=== PATIENT | female | born 1950 | race Caucasian/White ===

== ENCOUNTER → 2019-08-08 15:53 | Outpatient (CLI) | payer MEDICARE, OTHER, SELFPAY ==
--- NOTE | 2019-08-08 | DI.CT.S_ITS ---
PROCEDURE: CT UE RT WO CON INDICATIONS: Colles' fracture of right radius TECHNIQUE: Noncontrast 1 mm axial sections acquired through the carpal bones, with coronal and sagittal reformats. COMPARISON: [facility], CR, XR ELBOW 3+ VIEWS RIGHT, 07/02/2019, 15:19. [facility] [place], CR, XR WRIST 3+ VIEWS RIGHT, 08/01/2019, 16:15. FINDINGS: Image quality: Mildly degraded by overlying cast material.. Bones: There is a complex comminuted stellate fracture involving the distal radius, with impaction of the fracture fragments at the articular surface into the fracture planes, resulting in widening of the fracture margins up to 4 mm. There is mild palmar angulation of the articular surface in relationship to expected anatomic alignment. Superimposed upon the fractures and resultant malalignment is degenerative osteoarthritic change most prominent laterally at the wrist at the base of the first metacarpal, and at the articulation between the trapezium and distal scaphoid. The scaphoid itself shows no definite fracture. Along the scaphoid margin and also the lunate margin several small cortical lucencies are present but without fracture margins tracking through the marrow space establishing acute trauma as the underlying cause. Rather, vascular grooves would be the presumed etiology. Soft tissues: Mild soft tissue swelling, no hematoma. IMPRESSION: Complex comminuted stellate impacted intra-articular distal radius fracture, with mild abnormal angulation at the distal articular surface due to the trauma present. Degenerative osteoarthritis overall is moderately severe also, superimposed, and a definite carpal fracture is not found within this is taken into account. Dictated by: Rick Otreo M.D. on 08/08/2019 at 17:26 Approved by: Rick Otero M.D. on 08/08/2019 at 17:33
== END ==
PROVIDERS: Visit Provider Physician Assistant Surgical
DX: S52.531D Colles' fracture of right radius, subsequent encounter for closed fracture with routine healing (principal); M19.031 Primary osteoarthritis, right wrist; M79.89 Other specified soft tissue disorders
CPT/HCPCS: 73200

== ENCOUNTER → 2020-07-08 15:31 | Outpatient (CLI) | payer MEDICARE, OTHER, SELFPAY ==
--- NOTE | 2020-07-08 | DI.MRI.S_ITS ---
PROCEDURE: MR KNEE RT WO CON INDICATIONS: PAIN IN RIGHT KNEE TECHNIQUE: Noncontrast sagittal PD fast spin echo and T2 fast spin echo with fat saturation, sagittal 3-D FLASH with fat saturation; coronal T1 spin echo and PD fast spin echo with fat saturation, and axial PD fast spin echo with fat saturation through the knee. COMPARISON: [facility] [place], CR, XR KNEE 4+ VIEWS RIGHT, 06/30/2020, 16:30. FINDINGS: Image quality: Excellent. Menisci: The medial meniscus is intact. There is a horizontal oblique tear of the lateral meniscal body extending to the tibial articular surface near the free edge margin. There is mild extrusion of the lateral meniscus. The anterior horn and anterior portion of the meniscal body are small, compatible with degenerative tearing and maceration. Cruciate ligaments: There is chronic complete tearing of the anterior cruciate ligament. The posterior cruciate ligament is intact. Medial structures: The medial collateral ligament appears intact. The semimembranosus tendon insertions and meniscocapsular junction appear intact. Visualized portions of the pes anserinus tendons appear normal. No abnormal bursal fluid. Lateral structures: The lateral collateral ligament, long and short heads of the biceps femoris tendon appear intact. The popliteus tendon appears intact. No signs of posterolateral corner injury. Iliotibial band appears normal. Anterior structures: The quadriceps and patellar tendons appear intact. A mildly shallow trochlear groove is seen with mild lateral patellar subluxation. The tibial tubercle-trochlear groove distance is within normal limits. No edema in the infrapatellar fat pad. Bones and cartilage: No acute trabecular bone injury. The articular cartilage in the medial femorotibial compartment demonstrates mild surface irregularity. Small marginal osteophytes are present. In the lateral compartment, there is full-thickness cartilage loss with subchondral edema and marginal osteophyte formation as well as mild remodeling of the tibial articular surface. Focal full-thickness cartilage loss is seen in the median ridge/lateral facet of the patella with mild subchondral edema. Marginal osteophytes are present. Joint space: Moderate joint effusion is present. There is mild synovial hypertrophy. A few small filling defects are seen posterior to the knee joint measuring up to 5 mm in greatest size that likely represents small loose bodies. A moderate medial popliteal cyst is seen measuring 8.2 cm in superior inferior extent. Varicose veins are incidentally noted in the medial subcutaneous tissues. Mild edema is seen in the lateral portion of the proximal soleus muscle that may represent a low-grade strain. IMPRESSION: 1. Tricompartmental degenerative changes are worst in the lateral femorotibial compartment where there is full-thickness cartilage loss and subchondral edema. Areas of full thickness cartilage loss are also noted in the anterior compartment and there is mild partial-thickness cartilage irregularity in the medial compartment. Tricompartmental marginal osteophytes are present. 2. Degenerative tearing and maceration of lateral meniscus with mild extrusion beyond the femorotibial joint line. 3. Chronic complete tearing of the anterior cruciate ligament. 4. Moderate joint effusion. Moderate medial popliteal cyst. Small intra-articular loose bodies are seen measuring up to 5 mm in maximum dimension. 5. Mild edema in the proximal portion of the lateral soleus muscle may represent a low-grade muscle strain. Dictated by: Anshu Fang M.D. on 07/08/2020 at 16:48 Approved by: Ansuh Fang M.D. on 07/08/2020 at 16:59
== END ==
PROVIDERS: Referring Provider Orthopaedic Surgery; Visit Provider Orthopaedic Surgery
DX: M25.561 Pain in right knee (principal); S83.511A Sprain of anterior cruciate ligament of right knee, initial encounter; S83.281A Other tear of lateral meniscus, current injury, right knee, initial encounter; M25.461 Effusion, right knee; M71.21 Synovial cyst of popliteal space [Baker], right knee
CPT/HCPCS: 73721

== ENCOUNTER → 2020-07-14 14:31 | Outpatient (CLI) | payer MEDICARE, OTHER, SELFPAY ==
[2020-07-14 15:13] LABS: Bacteria Urine None Seen; RBC Urine None Seen (0-5/HPF); WBC Urine None Seen (0-5/HPF)
[2020-07-14 16:02] LABS: BUN Creatinine Ratio 23.3 (6-22); Blood Urea Nitrogen 14 mg/dL (7-17); Calcium 9.2 mg/dL (8.4-10.2); Carbon Dioxide 29 mmol/L (22-32); Chloride 103 mmol/L (98-107); Estimated Glomerular Filt Rate > 60.0 mL/min (>60); Glucose 93 mg/dL (80-110); HEMOLYSIS < 15 (0-50); Potassium 3.9 mmol/L (3.4-5.1); Sodium 139 mmol/L (137-145)
[2020-07-14 16:06] LABS: Appearance Urine UA CLEAR; Bilirubin Urine UA NEGATIVE (NEGATIVE); Color Urine UA YELLOW; Glucose Urine UA NEGATIVE (Negative); Ketones Urine UA NEGATIVE (NEGATIVE); Leukocyte Esterase Urine UA NEGATIVE (NEGATIVE); Nitrite Urine UA NEGATIVE (Negative); Occult Blood Urine UA NEGATIVE (Negative); Protein Urine UA NEGATIVE (Negative); Specific Gravity Urine UA 1.015 (1.000-1.035); Urobilinogen Urine UA 0.2 E.U./dL (0.2)
[2020-07-14 16:07] LABS: pH Urine UA 6.5 (4.5-8.0)
[2020-07-14 16:11] LABS: Add Manual Diff / Slide Review NO; Basophils Absolute Auto 100 /uL (0-100); Basophils Percent Auto 0.7 % (0-2); Culture Indicated Urine Cult Not Indicated; Eosinophils Absolute Auto 200 /uL (0-450); Eosinophils Percent Auto 2.9 % (2-4); Hematocrit 38.2 % (36-46); Hemoglobin 12.8 g/dL (12.0-16.0); Lymphocytes Absolute Auto 2400 /uL (1100-4500); Lymphocytes Percent Auto 33.7 % (25-40); Mean Corpuscular HGB Conc 33.6 % (30-36); Mean Corpuscular Hemoglobin 31.4 PG (26-34); Mean Corpuscular Volume 93.4 fL (80-100); Monocytes Absolute Auto 400 /uL (0-900); Monocytes Percent Auto 5.6 % (3-14); Neutrophils Absolute Auto 4100 /uL (1500-7000); Neutrophils Percent Auto 57.1 % (50-75); Platelet Count 247 X10^3/uL (150-400); Red Blood Cell Count 4.08 X10^6/uL (4.0-5.2); Red Cell Distribution Width 12.5 % (11.6-14.8); Urine Comments Microscopic Normal; White Blood Cell Count 7.2 X10^3/uL (4.5-11.0)
== END ==
PROVIDERS: Referring Provider Orthopaedic Surgery; Visit Provider Orthopaedic Surgery
DX: Z01.818 Encounter for other preprocedural examination (principal); Z01.812 Encounter for preprocedural laboratory examination; R73.9 Hyperglycemia, unspecified; N39.0 Urinary tract infection, site not specified
CPT/HCPCS: 36415; 80048; 81001; 83036; 85025; 93005; 93010

== ENCOUNTER → 2020-08-07 13:27 | Outpatient (CLI) | payer OTHER, SELFPAY ==
[2020-08-09 07:54] LABS: COVID19 Sendout Not Detected (Not Detect)
== END ==
PROVIDERS: Referring Provider Orthopaedic Surgery; Visit Provider Physician Assistant
DX: Z01.812 Encounter for preprocedural laboratory examination (principal)
CPT/HCPCS: 87635

== ENCOUNTER 2020-08-10 08:45 | Inpatient (IN) | payer OTHER, SELFPAY ==
[2020-07-22 08:43] VITALS: BMI 27.6
[2020-08-10] VITALS (12 sets, daily range): BP systolic 101–147; BP diastolic 57–81; PULSE 56–71; RESP 12–20; TEMP 36.4–36.9; O2SAT 95–99; BMI 29.1
--- NOTE | 2020-08-10 06:00 | DI.RAD.S_ITS ---
PROCEDURE: XR KNEE RT 1TO2V INDICATIONS: post op films TECHNIQUE: 2 view(s) of the knee acquired. COMPARISON: [facility] [place], CR, XR KNEE 4+ VIEWS RIGHT, 06/30/2020, 16:30. FINDINGS: Bones: Patient is status post knee joint arthroplasty. Hardware components are in expected positions. Visualized bony structures are intact. Soft tissues: Overlying postoperative changes are noted. Surgical drain is in place. IMPRESSION: Satisfactory appearance of the right knee total arthroplasty. Dictated by: Kaiden Arzola M.D. on 08/10/2020 at 14:10 Approved by: Kaiden Arzola M.D. on 08/10/2020 at 14:10
[2020-08-10] MEDS: ACETAMINOPHEN 325 MG TABLET 975 MG PO (09:32)
[2020-08-10] MEDS: PREGABALIN 75 MG CAPSULE PO (09:32)
[2020-08-10] MEDS: CELECOXIB 200 MG CAPSULE PO (09:33)
[2020-08-10] MEDS: LACTATED RINGERS 1,000 ML 42 ML IV ×3 (09:35→12:20)
[2020-08-10] MEDS: VANCOMYCIN 1,000 MG/200 ML PIGGYBACK 200 MG IV (10:36)
--- NOTE | 2020-08-10 10:58 | PM.PREOP ---
Pre-operative Note COVID-19 COVID-19 status: Negative Interval Note History & Physical reviewed/Exam performed by Physician: Yes Changes to H&P: No
[2020-08-10] MEDS: TRANEXAMIC ACID 1,000 MG VIAL 1000 MG INJ (11:25)
--- NOTE | 2020-08-10 11:29 | P.OP_ITS ---
Operative Date/Time/Diagnoses Date of procedure: 08/10/20 Time of procedure: 11:29 Pre-op diagnosis: Severe right knee osteoarthritis Post-op diagnosis: same Procedure & Clinicians Procedure: Right total knee arthroplasty Same procedure as scheduled: Yes Indications: The patient has had progressively worsening right knee pain with radiographic changes consistent with arthritis. Non-operative management has failed and the patient has requested total knee replacement. The risks, benefits and alternatives to surgery were discussed with the patient prior to proceeding. Risks discussed included, but were not limited to, failure to relieve pain, stiffness, infection, nerve damage, deep venous thrombosis, pulmonary embolism, stroke, coma, heart attack, permanent paralysis and , as well as the potential need for eventual revision of the prosthetic. Surgeon: Dona Bocanegra Telecommunications Repairer: Meena Simms Anesthesia Type: General and Spinal Operative Notes Findings: Severe right knee osteoarthritis, good stability Closure Type: primary Specimen(s): none sent Prosthetic devices, grafts, tissues, transplants, or devices: Bocanegra and Nephew Journey BCS 2 size 4 femur, size 3 tibia, 32 mm patella, +9 poly Applied: drain(s) Estimated Blood Loss (mL): 250 Blood products transfused: none Tourniquet time (min): 58 Procedure in detail: The patient was seen in the pre-operative area, where the patient identified the right knee as the operative site and this was marked with my initials. The patient received pre-operative antibiotics, and was taken to the operating room and placed on the operative table in the supine position. After satisfactory anesthesia, a time broker out was performed. The right leg was encircled with a tourniquet about the proximal thigh, and the leg was prepared from the toes to the tourniquet with ChloroPrep in the usual fashion and draped through sterile drapes. The leg was elevated and exsanguinated with Eschmark bandage and the tourniquet inflated to [250] mmHg pressure. The knee was approached through an approximately 18 cm incision centered over the patella and carried into the knee through a medial parapatellar arthrotomy. A portion of the medial and lateral meniscus was resected. Soft tissue was carefully mobilized around the patella the patella was measured with a caliper. Bone was resected from the patella and the patellar height was reconstituted with up an appropriate sized patellar component. A cover was then placed on the patella. A small amount of additional medial and lateral meniscus was resected. The visionare guide fit well to the distal femur. It looked like an appropriate distal femoral cut and the cut was made without difficulty. The rotation was assessed and the appropriate size femoral guide was placed on the distal femur and finishing cuts were made. There is no evidence of notching. The anterior, posterior and chamfer cuts were then made. The posterior osteophytes and soft tissues were then removed. The posterior capsule was injected with part of a mixture of 60 ml 0.25% Marcaine mixed with 20 ml Exparel for post operative pain control. The remainder of this mixture was injected into the capsule and subcutaneous tissues during cement curing. The tibia was prepared and the visionaire guide fit well to the distal tibia. The rotation was assessed. The patient was placed in extension residual medial and lateral meniscus as well as any residual bone was carefully resected. [No] additional tibia was resected. Hemostasis was achieved especially posteriorly. Additional local was injected into the posterior capsule. The extension gap was assessed and additional releases for gap balancing were performed as necessary. It was checked with the gap general production manager. The femoral component was trial was placed and the notch was finished. Trial tibial and femoral components were then placed and the knee placed through a range of motion. Range of motion was [0-130], with good stability throughout the range. The trials were then removed, and the tibia was finished. The bone was prepared with pulsatile lavage, and dried with a sponge. Cement was applied and the final prosthetics placed. Excess cement was removed during and after cement curing. A brief Betadine soak was performed. After confirming there was no extruded cement posteriorly, the final tibial insert was placed. The knee was copiously irrigated and the tourniquet deflated. Hemostasis was obtained with the Bovie. A drain was placed and brought out superolaterally. The capsule was closed with interrupted # Vicryl suture. The subcutaneous layer was closed with barbed sutures, and the skin with a running 3-0 V-Lock suture and Surgical glue. An Aquacel Ag dressing was applied and the patient was taken to recovery having tolerated the procedure well. Complications: none Post-operative Condition: stable Disposition: Acute Care Plan for aftercare: The patient will be maintained on a standard total knee replacement protocol with weight bearing as tolerated. The patient will receive aspirin and sequential compression devices for DVT prophylaxis. The patient will be discharged home when safe for the home environment.
[2020-08-10] MEDS: CEFAZOLIN 2 GM/100 ML FROZ.PIGGY IV ×2 (11:30→19:45)
[2020-08-10] MEDS: BUPIVACAINE 0.25% W/ EPI 30 ML VIAL 60 ML INJ (12:30)
[2020-08-10] MEDS: BUPIVACAINE LIPOSOME 266 MG/20 ML VIAL INJ (12:31)
[2020-08-10] MEDS: ACETAMINOPHEN 325 MG TABLET 650 MG PO ×2 (15:10→22:20)
[2020-08-10] MEDS: LACTATED RINGERS 1,000 ML 100 ML IV ×2 (15:11→22:25)
[2020-08-10] MEDS: GABAPENTIN 300 MG CAPSULE 900 MG PO ×2 (15:11→22:19)
--- NOTE | 2020-08-10 16:44 | PT.IIE ---
Current Diagnoses Unilateral primary osteoarthritis, right knee (08/10/20) Surgery Performed Operation Date: 08/10/20 10:45 Actual Procedures p Total Knee Arthroplasty(Right) - Dona Bocanegra MD Surgical History (Last Updated 07/27/20 @ 13:29 by Gayatri Green, RN) History of bilateral breast implants (Acute) History of bunionectomy of both great toes (Acute) History of right oophorectomy (Acute) Hx of bilateral cataract extraction (Acute) Hx of left knee surgery (Acute) Hx of tonsillectomy (Acute) Medical History (Last Updated 07/27/20 @ 13:35 by Gayatri Green RN) Allergic rhinitis (Acute) Anxiety (Acute) Asthma (Acute) Back pain (Acute) 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) Colon polyps (Acute) Depression (Acute) Easy bruisability (Acute) Eczema (Acute) GERD (gastroesophageal reflux disease) (Acute) Hammer toe of right foot (Acute) HLD (hyperlipidemia) (Acute) IBS (irritable bowel syndrome) (Acute) Melanoma (Acute) Migraine headache (Acute) Osteoarthritis (Acute) Ovarian cancer (Acute) Overactive bladder (Acute) PTSD (post-traumatic stress disorder) (Acute) Rabies exposure (Acute 06/2020) Right wrist fracture (Acute 05/2020) Sensitive skin (Acute) Suicidal ideation (Acute) Physical Therapy Inpatient Evaluation/Re-Eval M1 PT/OT-IP Prior Functional Status Start: 08/10/20 14:32 Freq: NEEDED Status: Active Protocol: Document 08/10/20 16:21 AW (Rec: 08/10/20 16:44 AW [email or web address]) Medical Review Prior Functional Status Medical History Reviewed Yes Communication WNL. Pt is an effective verbal communicator. Mobility and Gait Pt uses a SPC for all community mobility and occasionally for household mobility. She has history of low back pain. Pt had a service dog to assist with mobility who recently. Activities of Daily Living and IADL's Pt deals with severe incontinence. She had recent injections to her bladder to deal with spasm. She is otherwise independent with I/ ADL's. Prior Functional Level (Other details) Pt reports falls at a rate of one every 1-2 months. Social History Household Members none Living Arrangements House Number of Floors (Floors) One Floor Number of Stairs To Enter/Railing? 3 KARINA at back entrance. No railing but stairs are wide and can accommodate cane or another person for MEDIA LIBRARIAN. Home Environment Standard Height Toilet,Walk in Shower Home Equipment Four Wheel Walker,Straight Cane,Shower Seat with Backrest ,Grab Bars In Shower Employment Status Retired Additional Social History Comment Pt lives alone but has friends who plan to stay with her for the first two weeks to provide any necessary assist. Pt plans to sleep on her sofa when she returns home. M2 PT-IP Current Condition Start: 08/10/20 14:32 Freq: NEEDED Status: Active Protocol: Document 08/10/20 16:21 AW (Rec: 08/10/20 16:44 AW [email or web address]) Physical Therapy Current Condition Current Condition Evaluation Date 08/10/20 Treatment Diagnosis R TKA; difficulty in walking Onset Date 08/10/20 Weight Bearing Status Weight Bearing Status Weight Bear as Tolerated M3 PT-IP Subjective Start: 08/10/20 14:32 Freq: NEEDED Status: Active Protocol: Document 08/10/20 16:21 AW (Rec: 08/10/20 16:44 AW [email or web address]) Subjective Physical Therapy Visit Type Type Initial Evaluation Visit Start Time 15:40 Visit Stop Time 16:14 Total Visit Minutes 34 Notes SPT Jermaine attended session and provided assist with mobility Number of CAR WASH ATTENDANT Visits 0 Physical Therapy Visit Comments Patient Comments Pt is willing to participate with PT Therapy Pain Assessment Pain When Pain Assessed During Mobility Pain Present Pain Present Pain Reported Location right knee Intensity 5 Scale Used Numeric (0 - 10) Pain Management Techniques Apply Cold,Timing of Activity with Medications M4 PT-IP Mobility and Gait Start: 08/10/20 14:32 Freq: NEEDED Status: Active Protocol: Document 08/10/20 16:21 AW (Rec: 08/10/20 16:44 AW [email or web address]) PT-Bed Mobility Assessment Sit to Supine Sit to Supine Standby Assistance Scooting Scooting to Edge of Bed Standby Assistance Scooting Up and Down in Bed Standby Assistance PT-Transfer Assessment Sit to and From Stand Sit to and from Stand Minimal Assistance,1 Person Assistance,Use of Upper Extremities Equipment Transfer Assistive Device Gait Belt,Front Wheeled Walker Orthotic/Prosthetic Devices or Brace: No Transfers Transfer Destination Bed Transfer Technique pt ambulated with FWW Transfer Ability Level of Assist Contact Guard Assistance,1 Person Assistance,Use of Upper Extremities Comments Mobility Comments Pt was sitting on the BSC when PT arrived. She requested to keep male providers out of the room until finished with toileting and her wishes were respected. When finished on the BSC, she completed sit to stand min A x 1 and was able to stand with UE support on the FWW CGA. She ambulated to the toilet and then out to the sink to wash her hands, moving deliberately and safely . She was able to stand without UE support to complete hygiene. Pt then ambulated to the bed with FWW CGA and completed sit to supine transfer SBA. She was positioned on the bed with call light and all needs within reach. Gait Assessment Gait Gait Assistance Required: Contact Guard Assist Distance (Feet) 30 Able to Maintain Weight Bearing Status Yes During Gait Assistive Devices Assistive Device Gait Belt,Front Wheeled Walker Orthotic/Prosthetic Devices or Brace: No Gait Deviations General Gait Pattern Antalgic,Decreased Stride Length,Decreased Feet Clearance,Step-to Gait Factors Limiting Gait Function Factors Limiting Gait Function Decreased Sensation,Decreased Strength,Pain,Poor Balance, Poor Safety Awareness Comments Gait Comments See mobility comments for details. Stair Climbing Assessment Comments Stair Climbing Comments Not assessed on eval. PT-Balance Assessment Sitting Balance and Reactions Static Sitting Balance Ability Good Dynamic Sitting Balance Ability Good Standing Balance and Reactions Static Standing Balance Ability Good Dynamic Standing Balance Ability Good Device Used FWW M5 PT-IP Objective Assessments Start: 08/10/20 14:32 Freq: NEEDED Status: Active Protocol: Document 08/10/20 16:21 AW (Rec: 08/10/20 16:44 AW [email or web address]) Orientation Orientation/Cognition Level of Alertness Alert Orientation Name,Day of Week,Place, Situation Language Function Ability No Deficits Noted Safety Awareness Understands Safety Issues Memory Description No Deficits Noted Gross Range of Motion Upper Extremity ROM Assessment Within Functional Limits Lower Extremity ROM Assessment Right Impaired Strength Upper Extremity Strength Assessment Within Functional Limits Lower Extremity Strength Assessment Right Impaired Hip 3+/5 Comments Strength Comments LLE grossly 4+/5 Sensation Assessment Sensation Gross Sensation Right LE Impaired,Left LE Impaired Comments Sensation Comments Pt reports diminished sensation proximally BLE Muscle Tone Muscle Tone WNL Yes M6 PT-IP Treatment Start: 08/10/20 14:32 Freq: NEEDED Status: Active Protocol: Document 10/13/20 16:21 AW (Rec: 08/10/20 16:44 AW [email or web address]) Physical Therapy Treatment Exercises Exercises Ankle Pumps,Quad Sets Other Treatments Other Treatment Performed Provided education on role of PT, plan of care, weightbearing status, and safe use of FWW. M7 PT-IP Assessment and Plan Start: 08/10/20 14:32 Freq: NEEDED Status: Active Protocol: Document 08/10/20 16:21 AW (Rec: 08/10/20 16:44 AW [email or web address]) PT Summary Assessment and Plan Potential Rehabilitation Potential Good Status of Condition at Evaluation Evolving Summary Impairments Pain,ROM,Strength,Balance, Sensation,Bed Mobility, Transfers,Gait,Activity Tolerance Assessment Summary Vivi is a 69 yo woman seen for PT evaluation on POD0 following R TKA. She is modified independent for community mobility with use of SPC at baseline. On evaluation, she required CGA for most mobility including short bout ambulation with FWW . Pt brought her own 4WW but the brakes do not work. Pt will need a FWW prior to discharge. She will be safe for discharge home with assist and outpatient PT once medically cleared. Pt must clear stairs prior to discharge. Goals Bed Mobility Goal Independent Transfer Goal Independent,Front Wheeled Walker Gait Goal Independent,Front Wheel Walker Gait Distance 200 Other Goals - up/down 5 steps with SPC, MEDIA LIBRARIAN, or both Days to Meet Goals 3 Frequency of Treatment Frequency Of Treatment Twice a Day Treatment Plan Physical Therapy Treatment Plan Bed Mobility Training,Transfer Training,Gait Training, Therapeutic Exercise,Balance Retraining,Post Op Education, Discharge Planning,Hot or Cold Pack,Manual Therapy Other Recommendations and Next Treatment ther ex; gait training with Focus FWW; stairs when able Recommendations To Nursing Amount of Assist Needed 1 Person Assist Discharge Recommendations PT Discharge Recommendations Home with Assistance, Outpatient PT Transportation Needs at Discharge Private Vehicle
[2020-08-10] MEDS: IBUPROFEN 400 MG TABLET PO ×2 (17:19→22:18)
[2020-08-10] MEDS: OXYCODONE IR 5 MG TABLET PO ×2 (19:53→22:19)
[2020-08-10] MEDS: PANTOPRAZOLE 40 MG TABLET 80 MG PO (22:19)
[2020-08-10] MEDS: DOCUSATE 100 MG CAPSULE PO (22:20)
[2020-08-10] MEDS: ASPIRIN EC 81 MG TABLET PO (22:20)
[2020-08-10] MEDS: FLUTICASONE 120 SPRAY/16 GM SPRAY.SUSP NASAL (22:20)
[2020-08-10] MEDS: PROPRANOLOL 10 MG TABLET 20 MG PO (22:22)
--- NOTE | 2020-08-10 23:26 | PC.NURSE ---
Post-op note: Vivi has had a good evening, VS stable, RA oxygen 97% and lungs clear throughout. Using IS at bedside. Right knee drsg is CDI & hemovac active & compressed. At 1530 she reported no pain, stating RLE was still numb. Around 1900 she said she was starting to feel something, oxycodone given with good relief reported. Able to transfer to BS, voiding. Needing 1 assist for transfer. PT in to work with her. Patient has urinary urgency & frequency and has been up to BSC or used bedpan approx 6-7 times tonight. Has scant stress incontinence which is her baseline. IVF infusing as scheduled. Denies nausea & tolerating regular diet. At 2200 reporting increased pain to knee, also reporting a headache. Medicated with oxycodone, tylenol, ibuprofen, gabapentin along with other scheduled PM meds. I called RT up to talk to her about her inhalers, as she had some questions about her inhalers. I told her that we don't carry Mometasone in our pharmacy, she stated she does not have anyone who can bring it to her tonight, but she would see if someone could bring it tomorrow. RT up to assess patient. Full patient report given to Luz Marina MEMBRENO RN.
[2020-08-11 00:30] VITALS: BP 117/67; PULSE 65; RESP 18; TEMP 37; O2SAT 97
[2020-08-11] MEDS: DICLOFENAC 1% GEL 100 GM 2 APPLIC TOP (00:32)
[2020-08-11] MEDS: LACTATED RINGERS 1,000 ML 100 ML IV (01:21)
[2020-08-11] MEDS: CEFAZOLIN 2 GM/100 ML FROZ.PIGGY IV (03:39)
[2020-08-11] MEDS: IBUPROFEN 400 MG TABLET PO ×4 (03:39→18:10)
[2020-08-11] MEDS: OXYCODONE IR 5 MG TABLET PO ×4 (03:40→20:26)
[2020-08-11 04:19] VITALS: BP 133/65; PULSE 72; RESP 18; TEMP 36.6; O2SAT 98
[2020-08-11 05:37] LABS: Hemoglobin 11.1 g/dL (12.0-16.0)
--- NOTE | 2020-08-11 07:32 | PM.PNPO.1 ---
Subjective Subjective Date Patient Seen: 08/11/20 Time Patient Seen: 07:32 Interval history: Patient's pain is mild. Denies fever chills. No nausea vomiting. Patient was able to get up yesterday evening with physical therapy and the nurse to use the restroom. She will have friends available home to assist her. Exam Vital Signs (past 8 hours): - 08/11/20 00:30 08/11/20 04:19 Temperature 98.6 F 97.9 F Pulse Rate 65 72 Respiratory Rate 18 18 Blood Pressure 117/67 133/65 Pulse Oximetry 97 98 Oxygen Delivery Method Room Air Oxygen Flow Rate 0 Narrative Exam Narrative: 69-year-old female resting comfortably in bed in no apparent distress. Hemovac in place. Dressing clean, dry and intact. Motor functions intact distal right lower extremity. Sensation grossly intact to light touch. Right leg is warm and dry. Objective Labs Result Diagrams: 08/11/20 05:15 Labs: Laboratory Results - last 24 hr 08/11/20 05:15 Hgb 11.1 L Hct 33.0 L Assessment & Plan Post-op Postoperative Procedures: Procedures Operation Date: 08/10/20 10:45 Actual Procedures Side Surgeon p Total Knee Arthroplasty Right Dona Bocanegra MD Postop day 1 status post right total knee arthroplasty. Mobilize with physical therapy. Likely discharge home today after physical therapy. Quality VTE Deep Vein Thrombosis/Pulmonary Embolism Present on Admission: No
[2020-08-11 08:00] VITALS: BP 115/87; PULSE 67; RESP 16; TEMP 36.5; O2SAT 99
[2020-08-11] MEDS: CITALOPRAM 10 MG TABLET 40 MG PO (08:29)
[2020-08-11] MEDS: ACETAMINOPHEN 325 MG TABLET 650 MG PO ×3 (08:29→20:27)
[2020-08-11] MEDS: ASPIRIN EC 81 MG TABLET PO ×2 (08:30→20:28)
[2020-08-11] MEDS: GABAPENTIN 300 MG CAPSULE 900 MG PO ×3 (08:30→20:27)
[2020-08-11] MEDS: DOCUSATE 100 MG CAPSULE PO ×2 (08:30→20:28)
[2020-08-11] MEDS: ATORVASTATIN 20 MG TABLET 40 MG PO (08:30)
[2020-08-11] MEDS: LORATADINE 10 MG TABLET PO (08:30)
[2020-08-11] MEDS: PANTOPRAZOLE 40 MG TABLET 80 MG PO ×2 (08:30→20:27)
[2020-08-11] MEDS: OXYBUTYNIN 5 MG TABLET PO (08:32)
--- NOTE | 2020-08-11 10:28 | CM.DANOTE ---
Addendum entered by Olena Bocanegra 08/11/20 12:43: FWW ordered for home use. MACIEJ Addendum entered by Olena Bocanegra 08/11/20 12:26: Provided patient with list of counselors and senior resource guide. MACIEJ Original Note: DCP/Assessment: Reviewed chart. Patient is a 69yr old female admitted to [facility] for elective right TKA performed on 08-09-[address] Bocanegra. PCP is Dr. Shankar at [facility]. Primary payor is 1)[employer]. Met with patient explained CM/SW role. Patient alert and oriented during interview. Patient reports that she does have friend/family that can assist her in the residence. Patient became teary during assessment and requested OIL WELL SERVICES DISPATCHER provide her with list for counseling services. OIL WELL SERVICES DISPATCHER will attempt to obtain list and provide her with senior resource guide It is anticipate that patient will d/c home later today.Therapy working with patient today. P: Home when medically stable. Discharge Planning/Care Management CM Discharge Assessment Start: 08/11/20 10:24 Freq: Status: Active Protocol: Document 08/11/20 10:24 MACIEJ (Rec: 08/11/20 10:28 PIPER [email or web address]) Discharge Planning Assessment Assigned Spa Therapist LESLIE Rosado Contact Information Ada Ng (friend) # Advance Directives? No History Provided By Patient,Medical Record Prior Living Arrangements House Household Members none Type of transporation used prior to Drives own vehicle admit Independent with ADL's Yes Is patient alert and oriented? Yes Comment Patient reports that she may need FWW for home use if recommended. Patient/Family Preference OP PT Therapy Barriers to Discharge No Discharge Plan Home Referrals Initiated Other Whiteboard Updated in Patient Room with Yes name and ext. # of Spa Therapist Review Status In Process Next Review Type Continued Stay Review Pre-Anesthesia Assessment Start: 07/22/20 08:43 Freq: Status: Complete Protocol: Document 07/22/20 08:43 CAB (Rec: 07/22/20 09:19 CAB [id number]) Pre-Anesthesia Assessment Preferred Name Tyrone Patient Information Reviewed Via Phone Assessment Assessment Completed With Patient Diagnostic Results BMP/CMP,CBC,Urinalysis Comment Labs/EKG @ 07/14/20, COVID screen @ [facility] 08/07/20 Seen Specialist in Last 12 Months Yes Specialist Seen Orthopedist Primary Language Lebanese Hand Ornament Maker Required No Height 170.18 cm Weight 79.832 kg Body Mass Index (BMI) 27.6 Hearing Ability Normal Visual Assist Magnifying Glass Dentition Type Teeth, Natural Present,Dental Implants Barriers to Learning Memory Comment Occasional with short term memory Hx Anesthesia Reactions Yes: I woke up with a migraine, throwing up Hx Family Anesthesia Reaction No Hx Malignant Hyperthermia No Hx Blood Transfusions Yes: s/p Hx Blood Transfusion Reaction No Anesthesia Review Requested No alcohol intake current alcohol intake frequency 0-2 drinks per day Smoking Status Never smoker Substance Use Type marijuana Comment Pt advised not to smoke marijuana 24 hours prior Pain Present Pain Reported Musculoskeletal Symptoms Abnormal Gait,Back Pain, Difficulty Walking,Joint Pain, Neck Pain History of Falling (Recent or History of Yes ) Patient is completely paralyzed or No completely immobile Prosthesis or Orthotic Device Cane Mental Status Oriented to own ability Is patient on oxygen? No Does patient have JUNIOR/SOB Yes Hx Sleep Apnea No Currently Taking a Beta Angie Yes: Propranolol Can You Climb a Flight of Stairs Without No SOB Hx Chest Pain No Hx SOB Yes Hx Syncope or Dizziness Yes: Syncope Anti-Coagulant Therapy No Has a [place] Hand No Cardiac Testing No Hx Pacemaker/ICD No Pacemaker Rep Required? 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 Marital Status Single Lives With none Prior Living Arrangements House Number of Floors (Floors) One Floor Support System Friend(s) Does the Patient Have Assistance After Yes: Friend will stay with pt Surgery to assist w/DC Patient Discharge Plan Description Return Home Comment Pt not advised on length of stay per surgeon Feels Safe in Current Environment Yes Been Physically Hurt or Threatened By a No Person in Current Environment Do you have thoughts of harming yourself None or others? Are you currently considering suicide? No Do you have a plan to hurt yourself or No Plan others? Do You Have Any Spiritual Beliefs That No May Affect Your HC Choices? Do You Have Any Cultural Practices That No May Affect Your HC Choices? Who Can We Speak to About Patient's Care Family, friends Identifying Code for Release of Patient Declines to issue Information Health Care Proxy/Next of Kin Ada (friend) Health Care Proxy Emergency Contact Name Ada (friend) Emergency Contact Advance Directives? No Power of Translator Interpreter Name Ada (friend) Power of Translator Interpreter PAC Instructions Durable medical equipment, Medications to take/avoid, Nasal antibiotic,No ETOH/ petroleum product on skin DOS, NPO,Pre-surgical wash,Sturdy shoes/comfortable clothes,Do not bring valuables and remove jewelry
[2020-08-11 11:00] VITALS: BP 127/67; PULSE 74; RESP 16; TEMP 36.5; O2SAT 100
--- NOTE | 2020-08-11 11:50 | PM.DS.1 ---
History of Present Illness History of Present Illness Date Patient Seen: 08/11/20 Time Patient Seen: 11:50 Chief complaint: Right Total Knee Arthroplasty *OPB* Narrative: Pain mild this am now little more moderate. No fever or chills Discharge Providers Provider Discharge Date: 08/11/20 Primary care physician: Amber Medina MD Consults: 08/10/20 06:00 Consult to Anesthesiology Routine Comment: Consulting Provider: Anesthesiologist Reason for consultation: Regional block for post operative pain control 08/10/20 14:05 Consult to Discharge Planning Routine Comment: Consult to Physical Therapy Evaluate & Treat Comment: Physician Instructions: postop TKA protocol Consult to Respiratory Therapy Evaluate & Treat Comment: Physician Instructions: Evaluate and treat Discharge provider: Ken Heaton PA-C Summary Hospital Course Discharge Diagnosis: Severe right knee osteoarthritis Hospital Course: Procedure: Right total knee arthroplasty Same procedure as scheduled: Yes Indications: The patient has had progressively worsening right knee pain with radiographic changes consistent with arthritis. Non-operative management has failed and the patient has requested total knee replacement. The risks, benefits and alternatives to surgery were discussed with the patient prior to proceeding. Risks discussed included, but were not limited to, failure to relieve pain, stiffness, infection, nerve damage, deep venous thrombosis, pulmonary embolism, stroke, coma, heart attack, permanent paralysis and , as well as the potential need for eventual revision of the prosthetic. Surgeon: Dona Bocanegra Gauge And Weigh Machine Adjuster: Meena Simms Anesthesia Type: General and Spinal Operative Notes Findings: Severe right knee osteoarthritis, good stability Closure Type: primary Specimen(s): none sent Prosthetic devices, grafts, tissues, transplants, or devices: Bocanegra and Nephew Journey BCS 2 size 4 femur, size 3 tibia, 32 mm patella, +9 poly Applied: drain(s) Estimated Blood Loss (mL): 250 Blood products transfused: none Tourniquet time (min): 58 Status at Discharge Cognitive/behavioral status at discharge: at baseline, oriented Functional status at discharge: uses cane/walker Overall status at discharge: patient is progressing back to baseline Time Spent with Patient Time spent: Less than 30 minutes Exam Vital Signs (past 8 hours): - 08/11/20 04:19 08/11/20 08:00 08/11/20 11:00 Temperature 97.9 F 97.7 F 97.7 F Pulse Rate 72 67 74 Respiratory Rate 18 16 16 Blood Pressure 133/65 115/87 127/67 Pulse Oximetry 98 99 100 Oxygen Delivery Method Room Air Oxygen Flow Rate 0 Narrative Exam Narrative: see progress note Objective Labs Result Diagrams: 08/11/20 05:15 Labs: Laboratory Results - last 24 hr 08/11/20 05:15 Hgb 11.1 L Hct 33.0 L Discharge Assessment & Plan Assessment and Plan Assessment: Doing well. DC home after PT. Discharge Plan Discharge Plan Patient Disposition: Home Discharge comment: Home today after PT Discharge Med Rec/Prescriptions Prescriptions: New acetaminophen 325 mg Tablet 650 mg PO TID Qty: 60 RF: 0 aspirin 81 mg Tablet,Delayed Release (Dr/Ec) 81 mg PO BID Qty: 60 RF: 0 oxycodone 5 mg Tablet 5 mg PO Q3H PRN (Reason: Pain, Moderate (4-6)) Qty: 60 RF: 0 ondansetron 4 mg Tablet,Disintegrating 4 mg PO Q4HR PRN (Reason: Nausea) Qty: 10 RF: 0 Continued atorvastatin 40 mg Tablet 40 mg PO DAILY RF: 0 citalopram 40 mg Tablet 40 mg PO DAILY RF: 0 omeprazole 40 mg Capsule,Delayed Release(Dr/Ec) 80 mg PO BID RF: 0 gabapentin 300 mg Capsule 900 mg PO TID RF: 0 propranolol 20 mg Tablet 20 mg PO BEDTIME RF: 0 oxybutynin chloride 5 mg Tablet 5 mg PO DAILY RF: 0 fluticasone propionate 50 mcg/actuation [place],Suspension 1 spray INTRANASAL BID RF: 0 naproxen 500 mg Tablet 500 mg PO BID PRN (Reason: Pain) RF: 0 diclofenac sodium [Voltaren] 1 % Gel 2 g TOPICAL BID PRN (Reason: Pain) RF: 0 loratadine 10 mg Capsule 10 mg PO DAILY RF: 0 Myrbetriq 25 mg Tablet Extended Release 24 Hr 25 mg PO DAILY RF: 0 Asmanex HFA 200 mcg/actuation Hfa Aerosol Inhaler 1 puff INHALATION BID RF: 0 albuterol sulfate 90 mcg/actuation Hfa Aerosol Inhaler 2 puff INHALATION Q4-6H PRN (Reason: Shortness Of Breath) RF: 0 Discontinued aspirin 81 mg Tablet,Delayed Release (Dr/Ec) 81 mg PO DAILY RF: 0 Follow up/Referrals: Vonnie-Amber Hutchinson MD [Primary Care Provider] - Dona Bocanegra MD [Physician] - (2 wks) Discharge Orders: Discharge (Order); Ordered 08/11/20 Ordered By: Ken Heaton Provider Discharge Instructions Diet: Diet as Tolerated Activity: WBAT Cold/Heat Therapy: ice as needed Skin/Wound/Dressing Care Report to your healthcare provider any signs of infection, such as:: chills, fever, increased pain, unusual drainage and unusual redness Dressing: keep clean and dry Visit Report/Discharge Packet Instructions: How to Choose and Use a Walker, DI for Knee Replacement, DI for Constipation, How to Prevent Falls Stand Alone Forms: Surgery Discharge Discharge Data Primary Care Provider: VonnieDannyJanuary Attending Provider: Dona Bocanegra VTE Deep Vein Thrombosis/Pulmonary Embolism Present on Admission: No
--- NOTE | 2020-08-11 13:18 | PT.IPTN ---
Current Diagnoses Unilateral primary osteoarthritis, right knee (08/10/20) Surgery Performed Operation Date: 08/10/20 10:45 Actual Procedures p Total Knee Arthroplasty(Right) - Dona Bocanegra MD Physical Therapy Treatment Note M2 PT-IP Current Condition Start: 08/10/20 14:32 Freq: NEEDED Status: Active Protocol: Document 08/10/20 16:21 AW (Rec: 08/10/20 16:44 AW [email or web address]) Physical Therapy Current Condition Current Condition Evaluation Date 08/10/20 Treatment Diagnosis R TKA; difficulty in walking Onset Date 08/10/20 Weight Bearing Status Weight Bearing Status Weight Bear as Tolerated M3 PT-IP Subjective Start: 08/10/20 14:32 Freq: NEEDED Status: Active Protocol: Document 08/11/20 12:01 DE (Rec: 08/11/20 13:16 DE [email or web address]) Subjective Physical Therapy Visit Type Type Treatment Note Visit Start Time 09:40 Visit Stop Time 10:12 Total Visit Minutes 32 Notes SPT Jermaine had direct supervision under PT Kevin throughout the entire session. Number of EHS ENGINEER Visits 0 Physical Therapy Visit Comments Patient Comments Pt looking forward to going home. Therapy Pain Assessment Pain When Pain Assessed During Mobility Pain Present Pain Present Pain Reported Location right knee Intensity 5 Scale Used Jauregui-Aguilar (Faces) Pain Management Techniques Timing of Activity with Medications M4 PT-IP Mobility and Gait Start: 08/10/20 14:32 Freq: NEEDED Status: Active Protocol: Document 08/11/20 12:01 DE (Rec: 08/11/20 13:16 DE [email or web address]) PT-Transfer Assessment Sit to and From Stand Sit to and from Stand Contact Guard Assistance,1 Person Assistance,Use of Upper Extremities Equipment Transfer Assistive Device Gait Belt,Front Wheeled Walker Orthotic/Prosthetic Devices or Brace: No Transfers Transfer Destination Bed,Chair,Toilet Transfer Technique Pt ambulated with FWW Transfer Ability Level of Assist Contact Guard Assistance,1 Person Assistance,Use of Upper Extremities Comments Mobility Comments Pt was standing in front of the sink with nurse as PT and SPT arrived. Pt agreed to be seen by PT and then nurse left the room shortly after. Pt amb to the bed and performed stand to sit at EOB transfer with CGA and use of BUE. Pt then stood up from EOB with CGA with BUE pushed off through walker and bed frame. Pt then amb to the bathroom toilet with CGA and FWW and stand step pivot transfer to the toilet with CGA and use of BUE on grab bar and FWW. Pt requested to keep PT and SPT out of the bathroom until finished with toileting and her wishes were respected. When finished with toileting, pt stood up from the toilet with mod I with use of walker and grab bars and amb out of the bathroom. Pt amb to the sink to wash her hands with CGA and FWW. Pt was able to stand unsupported. After washing her hands, pt amb to the bed with CGA and FWW and requested to sit down on the bed to rest for ~1 min. Pt stood up followed by gait training with CGA FWW, and w/c follow. Pt completed half of the 1/4 of AC unit and finsihed stair climbing. She was then W/C back to her room d/t knee soreness. Pt was able to get up from chair and amb to bathroom and sat down to [facility] with proper use of BUE for support in order to get a shower from nursing staff. PT and SPT handed pt off to nurse and left the room. Gait Assessment Gait Gait Assistance Required: Contact Guard Assist Distance (Feet) 150 Able to Maintain Weight Bearing Status Yes During Gait Assistive Devices Assistive Device Gait Belt,Front Wheeled Walker Orthotic/Prosthetic Devices or Brace: No Gait Deviations General Gait Pattern Antalgic,Decreased Stride Length,Decreased Feet Clearance,Step-to Gait Factors Limiting Gait Function Factors Limiting Gait Function Decreased Sensation,Decreased Strength,Pain,Poor Balance, Poor Safety Awareness Comments Gait Comments Pt amb ~150 ft out in the vigil to the stairs with CGA and FWW. Pt demonstrated 3-point step to gait pattern with decreased stride length and decreased feet clearance. Stair Climbing Assessment Evaluation Level of Assist On Stairs Moderate Assistance,1 Person Assistance Devices Stair Climbing Assistive Devices Right Railing Technique/Endurance Stair Climbing Direction Ascend and Descend Stair Climbing Technique Step to Step Number of Steps Climbed 3 Stair Climbing Set # Repetitions (reps) 2 Comments Stair Climbing Comments Pt performed stair climbing up and down 3 steps x2 mod 1p STRATEGIC DEBRIEFING OFFICER with R railing. She needed frequent cues not to use B rails d/t home setup. Pt demonstrated decreased speed d /t pain and weakness. PT-Balance Assessment Sitting Balance and Reactions Static Sitting Balance Ability Good Dynamic Sitting Balance Ability Good Standing Balance and Reactions Static Standing Balance Ability Good Dynamic Standing Balance Ability Good Device Used FWW M5 PT-IP Objective Assessments Start: 08/10/20 14:32 Freq: NEEDED Status: Active Protocol: Document 08/10/20 16:21 AW (Rec: 08/10/20 16:44 AW [email or web address]) Orientation Orientation/Cognition Level of Alertness Alert Orientation Name,Day of Week,Place, Situation Language Function Ability No Deficits Noted Safety Awareness Understands Safety Issues Memory Description No Deficits Noted Gross Range of Motion Upper Extremity ROM Assessment Within Functional Limits Lower Extremity ROM Assessment Right Impaired Strength Upper Extremity Strength Assessment Within Functional Limits Lower Extremity Strength Assessment Right Impaired Hip 3+/5 Comments Strength Comments LLE grossly 4+/5 Sensation Assessment Sensation Gross Sensation Right LE Impaired,Left LE Impaired Comments Sensation Comments Pt reports diminished sensation proximally BLE Muscle Tone Muscle Tone WNL Yes M6 PT-IP Treatment Start: 08/10/20 14:32 Freq: NEEDED Status: Active Protocol: Document 08/10/20 16:21 AW (Rec: 08/10/20 16:44 AW [email or web address]) Physical Therapy Treatment Exercises Exercises Ankle Pumps,Quad Sets Other Treatments Other Treatment Performed Provided education on role of PT, plan of care, weightbearing status, and safe use of FWW. M7 PT-IP Assessment and Plan Start: 08/10/20 14:32 Freq: NEEDED Status: Active Protocol: Document 08/11/20 12:01 DE (Rec: 08/11/20 13:16 DE [email or web address]) PT Summary Assessment and Plan Potential Rehabilitation Potential Good Status of Condition at Evaluation Evolving Summary Impairments Pain,ROM,Strength,Balance, Sensation,Bed Mobility, Transfers,Gait,Activity Tolerance Progress Towards Goals Progressing Toward Goals Assessment Summary Pt tolerated treatment well overall. Pt gets very easily distracted and demonstrated poor safety awareness. Pt needed CGA with use of BUE on FWW or grab bars for most transfers and amb except for stair climbing. Pt needed mod 1P STRATEGIC DEBRIEFING OFFICER for stair climbing and she was noticeably fatigued during and after the stair climbing. Pt's friend, Abi, who will assist her at home will be present during the next treatment PM session. Caregiver training will be performed during that session especially for stair climbing. Pt will be cleared for d/c once pt and her caregiver can demonstrate safe pt handling and stair climbing. Goals Bed Mobility Goal Independent Transfer Goal Independent,Front Wheeled Walker Gait Goal Independent,Front Wheel Walker Gait Distance 200 Other Goals - up/down 5 steps with SPC, STRATEGIC DEBRIEFING OFFICER, or both Days to Meet Goals 3 Frequency of Treatment Frequency Of Treatment Twice a Day Treatment Plan Physical Therapy Treatment Plan Bed Mobility Training,Transfer Training,Gait Training, Therapeutic Exercise,Balance Retraining,Post Op Education, Discharge Planning,Hot or Cold Pack,Manual Therapy Other Recommendations and Next Treatment ther ex; gait training with Focus FWW; stairs when able Recommendations To Nursing Amount of Assist Needed 1 Person Assist Discharge Recommendations PT Discharge Recommendations Home with Assistance, Outpatient PT Equipment Needed for Home Before FWW for home use upon d/c Discharge Transportation Needs at Discharge Private Vehicle This note is written by Jermaine Avila, NAJMA and it was reviewed and approved by Manoj Keith , PT
[2020-08-11 15:20] VITALS: BP 112/53; PULSE 71; RESP 18; TEMP 36.8; O2SAT 98
--- NOTE | 2020-08-11 15:37 | PT.IPTN ---
Current Diagnoses Unilateral primary osteoarthritis, right knee (08/10/20) Surgery Performed Operation Date: 08/10/20 10:45 Actual Procedures p Total Knee Arthroplasty(Right) - Dona Bocanegra MD Physical Therapy Treatment Note M2 PT-IP Current Condition Start: 08/10/20 14:32 Freq: NEEDED Status: Active Protocol: Document 08/10/20 16:21 AW (Rec: 08/10/20 16:44 AW [email or web address]) Physical Therapy Current Condition Current Condition Evaluation Date 08/10/20 Treatment Diagnosis R TKA; difficulty in walking Onset Date 08/10/20 Weight Bearing Status Weight Bearing Status Weight Bear as Tolerated M3 PT-IP Subjective Start: 08/10/20 14:32 Freq: NEEDED Status: Active Protocol: Document 08/11/20 15:21 HH (Rec: 08/11/20 15:36 HH [id number]) Subjective Physical Therapy Visit Type Type Treatment Note Visit Start Time 13:57 Visit Stop Time 14:42 Total Visit Minutes 45 Notes co-tx with SPT Jermaine Avila. SABA Alex at bedside. Number of BLEACH PACKER Visits 0 Physical Therapy Visit Comments Patient Comments Pt is exciting for this session. Therapy Pain Assessment Pain When Pain Assessed During Mobility Pain Present Pain Present Pain Reported Location right knee Intensity 5 Scale Used Jauregui-Aguilar (Faces) Pain Management Techniques Timing of Activity with Medications M4 PT-IP Mobility and Gait Start: 08/10/20 14:32 Freq: NEEDED Status: Active Protocol: Document 08/11/20 15:21 HH (Rec: 08/11/20 15:36 HH [id number]) PT-Bed Mobility Assessment Supine to Sit Supine to Sit Standby Assistance Sit to Supine Sit to Supine Standby Assistance Scooting Scooting to Edge of Bed Standby Assistance Scooting Up and Down in Bed Standby Assistance PT-Transfer Assessment Sit to and From Stand Sit to and from Stand Contact Guard Assistance,1 Person Assistance,Use of Upper Extremities Equipment Transfer Assistive Device Gait Belt,Front Wheeled Walker Orthotic/Prosthetic Devices or Brace: No Transfers Transfer Destination Bed,Chair,Toilet Transfer Technique Pt ambulated with FWW Transfer Ability Level of Assist Contact Guard Assistance,1 Person Assistance,Use of Upper Extremities Comments Mobility Comments Pt was in bed upon PT and SPT arrival. SABA Alex at bedside for CG training. She requested to use bathroom and completed supine to sit at R EOB SBA. She then stood up by pushing off from bed but slow transition to hold on to walk. She walked to bathroom and used grab and FWW to descend. She completed toileting and pericare when pt was out of the bathroom. She walked to the sink after with CGA FWW but c/o dizziness shortly. She went to sit down in bedside chair. BP at 109/65. Pt took a 5 mins break and went upto 137/52. Pt then got up and cont walk with SPT with CGA. she completed 1/ AC unit and stair climbing again but c/o increase nausea and needed emesis bag but no vomiting noted. Pt was w/c back to room and was able to use FWW for stand pivot transfer to bed with CGA. Pt returned to supine in bed . BP at 120/49. Her c/o was improved after rest. Gait Assessment Gait Gait Assistance Required: Contact Guard Assist Distance (Feet) 150 Able to Maintain Weight Bearing Status Yes During Gait Assistive Devices Assistive Device Gait Belt,Front Wheeled Walker Orthotic/Prosthetic Devices or Brace: No Gait Deviations General Gait Pattern Antalgic,Decreased Stride Length,Decreased Feet Clearance,Step-to Gait Factors Limiting Gait Function Factors Limiting Gait Function Decreased Sensation,Decreased Strength,Pain,Poor Balance, Poor Safety Awareness Comments Gait Comments Pt amb ~150 ft out in the vigil to the stairs with CGA and FWW. Pt demonstrated 3-point step to gait pattern with decreased stride length and decreased feet clearance. Pt also bumped into obstacles in the hallway 3 times and needed cues to redirect her. Stair Climbing Assessment Evaluation Level of Assist On Stairs Moderate Assistance,1 Person Assistance Devices Stair Climbing Assistive Devices Right Railing Technique/Endurance Stair Climbing Direction Ascend and Descend Stair Climbing Technique Step to Step Number of Steps Climbed 3 Stair Climbing Set # Repetitions (reps) 2 Comments Stair Climbing Comments Pt performed stair climbing up and down 3 steps x2 mod 1p CORN CHIP MAKER from CG Abi with R railing. She needed frequent cues not to use B rails d/t home setup. Pt demonstrated decreased speed d/t pain and weakness. PT-Balance Assessment Sitting Balance and Reactions Static Sitting Balance Ability Good Dynamic Sitting Balance Ability Good Standing Balance and Reactions Static Standing Balance Ability Good Dynamic Standing Balance Ability Good Device Used FWW M5 PT-IP Objective Assessments Start: 08/10/20 14:32 Freq: NEEDED Status: Active Protocol: Document 08/10/20 16:21 AW (Rec: 08/10/20 16:44 AW [id number]) Orientation Orientation/Cognition Level of Alertness Alert Orientation Name,Day of Week,Place, Situation Language Function Ability No Deficits Noted Safety Awareness Understands Safety Issues Memory Description No Deficits Noted Gross Range of Motion Upper Extremity ROM Assessment Within Functional Limits Lower Extremity ROM Assessment Right Impaired Strength Upper Extremity Strength Assessment Within Functional Limits Lower Extremity Strength Assessment Right Impaired Hip 3+/5 Comments Strength Comments LLE grossly 4+/5 Sensation Assessment Sensation Gross Sensation Right LE Impaired,Left LE Impaired Comments Sensation Comments Pt reports diminished sensation proximally BLE Muscle Tone Muscle Tone WNL Yes M6 PT-IP Treatment Start: 08/10/20 14:32 Freq: NEEDED Status: Active Protocol: Document 08/11/20 15:37 HH (Rec: 08/11/20 15:37 HH [id number]) Physical Therapy Treatment Education Education Provided Precautions,Weight Bearing Status,Post-Op Packet,Safety Equipment Issued Equipment Type and Company FWW for home use M7 PT-IP Assessment and Plan Start: 08/10/20 14:32 Freq: NEEDED Status: Active Protocol: Document 08/11/20 15:21 HH (Rec: 08/11/20 15:36 HH [id number]) PT Summary Assessment and Plan Potential Rehabilitation Potential Good Status of Condition at Evaluation Evolving Summary Impairments Pain,ROM,Strength,Balance, Sensation,Bed Mobility, Transfers,Gait,Activity Tolerance Progress Towards Goals Progressing Toward Goals,Slow Progress due to Medical Issues ,Slow Progress - Other Assessment Summary CG Abi attended session and participated training for stair climbing. CG was able to demonstrate good understanding and safe patient handling. However, pt was very nauseated and dizzy with possible orthostatic hypotension during mobility who needed close CGA. Pt currently is safe to go home yet d/t her BP variation and discomfort. Will cont monitor her progress Goals Bed Mobility Goal Independent Transfer Goal Independent,Front Wheeled Walker Gait Goal Independent,Front Wheel Walker Gait Distance 200 Other Goals - up/down 5 steps with SPC, CORN CHIP MAKER, or both pt would like to use back door with 2 4 threshold by using CORN CHIP MAKER and SPC Days to Meet Goals 3 Frequency of Treatment Frequency Of Treatment Twice a Day Treatment Plan Physical Therapy Treatment Plan Bed Mobility Training,Transfer Training,Gait Training, Therapeutic Exercise,Balance Retraining,Post Op Education, Discharge Planning,Hot or Cold Pack,Manual Therapy Other Recommendations and Next Treatment ther ex; gait training with Focus FWW; stairs when able Recommendations To Nursing Amount of Assist Needed 1 Person Assist Discharge Recommendations PT Discharge Recommendations Home with Assistance, Outpatient PT Transportation Needs at Discharge Private Vehicle
[2020-08-11] MEDS: ALBUTEROL HFA 200 PUFF/18 GM INH (COVID POS/VENT PTS) INH (18:20)
[2020-08-11] MEDS: MELATONIN 3 MG TABLET 18 MG PO (20:26)
[2020-08-11] MEDS: FLUTICASONE 120 SPRAY/16 GM SPRAY.SUSP NASAL (20:29)
[2020-08-11 20:50] VITALS: BP 108/51; PULSE 65; RESP 20; TEMP 37
[2020-08-12] VITALS (8 sets, daily range): BP systolic 92–123; BP diastolic 52–88; PULSE 63–70; RESP 15–18; TEMP 36.4–36.9; O2SAT 96–99
[2020-08-12] MEDS: OXYCODONE IR 5 MG TABLET PO ×3 (01:00→08:39)
[2020-08-12] MEDS: IBUPROFEN 400 MG TABLET PO ×6 (01:01→20:37)
[2020-08-12] MEDS: ATORVASTATIN 20 MG TABLET 40 MG PO (08:28)
[2020-08-12] MEDS: ASPIRIN EC 81 MG TABLET PO ×2 (08:28→20:36)
[2020-08-12] MEDS: LORATADINE 10 MG TABLET PO (08:29)
[2020-08-12] MEDS: DOCUSATE 100 MG CAPSULE PO ×2 (08:29→20:36)
[2020-08-12] MEDS: ACETAMINOPHEN 325 MG TABLET 650 MG PO ×3 (08:29→20:36)
[2020-08-12] MEDS: GABAPENTIN 300 MG CAPSULE 900 MG PO ×3 (08:29→20:37)
[2020-08-12] MEDS: CITALOPRAM 10 MG TABLET 40 MG PO (08:30)
[2020-08-12] MEDS: FLUTICASONE 120 SPRAY/16 GM SPRAY.SUSP NASAL ×2 (08:32→20:37)
[2020-08-12] MEDS: PANTOPRAZOLE 40 MG TABLET 80 MG PO ×2 (08:42→20:38)
[2020-08-12] MEDS: SODIUM CHLORIDE 0.9% FLUSH 10 ML IV ×2 (08:42→20:38)
[2020-08-12] MEDS: ALBUTEROL HFA 200 PUFF/18 GM INH (COVID POS/VENT PTS) INH (08:48)
[2020-08-12] MEDS: OXYBUTYNIN 5 MG TABLET PO (09:59)
--- NOTE | 2020-08-12 10:56 | PT.IPTN ---
Current Diagnoses Unilateral primary osteoarthritis, right knee (08/10/20) Surgery Performed Operation Date: 08/10/20 10:45 Actual Procedures p Total Knee Arthroplasty(Right) - Dona Bocanegra MD Physical Therapy Treatment Note M2 PT-IP Current Condition Start: 08/10/20 14:32 Freq: NEEDED Status: Active Protocol: Document 08/10/20 16:21 AW (Rec: 08/10/20 16:44 AW [email or web address]) Physical Therapy Current Condition Current Condition Evaluation Date 08/10/20 Treatment Diagnosis R TKA; difficulty in walking Onset Date 08/10/20 Weight Bearing Status Weight Bearing Status Weight Bear as Tolerated M3 PT-IP Subjective Start: 08/10/20 14:32 Freq: NEEDED Status: Active Protocol: Document 08/12/20 10:32 KS (Rec: 08/12/20 14:36 KS [id number]) Subjective Physical Therapy Visit Type Type Treatment Note Visit Start Time 10:32 Visit Stop Time 10:56 Total Visit Minutes 24 Number of FLATWORK IRONER Visits 1 Physical Therapy Visit Comments Patient Comments Pt agreeable to work w/ therapy. M4 PT-IP Mobility and Gait Start: 08/10/20 14:32 Freq: NEEDED Status: Active Protocol: Document 08/12/20 10:32 KS (Rec: 08/12/20 14:36 KS [id number]) PT-Bed Mobility Assessment Supine to Sit Supine to Sit Standby Assistance Sit to Supine Sit to Supine Standby Assistance Scooting Scooting to Edge of Bed Standby Assistance Scooting Up and Down in Bed Standby Assistance PT-Transfer Assessment Comments Mobility Comments Pt in bed upon arrival from therapy. Reveiwed ankle pumps, quad sets, heel slides, and glute sets. Instructed pt how to use gait belt to self assist LE out of bed, pt SBA for sup<>Sit and scooting EOB. Pt reported dizziness and had a hard time keeping her eyes open. BP 95/50 and then 83/48 after 2 min sitting. Instructed pt to lay down. Pt left in bed w/ all needs in reach and RN notifed of low BP . Gait Assessment Comments Gait Comments unable to assess d/t low BP Stair Climbing Assessment Comments Stair Climbing Comments did not assess, low BP PT-Balance Assessment Sitting Balance and Reactions Static Sitting Balance Ability Good Dynamic Sitting Balance Ability Good Standing Balance and Reactions Static Standing Balance Ability Good Dynamic Standing Balance Ability Good Device Used FWW M5 PT-IP Objective Assessments Start: 08/10/20 14:32 Freq: NEEDED Status: Active Protocol: Document 08/10/20 16:21 AW (Rec: 08/10/20 16:44 AW [email or web address]) Orientation Orientation/Cognition Level of Alertness Alert Orientation Name,Day of Week,Place, Situation Language Function Ability No Deficits Noted Safety Awareness Understands Safety Issues Memory Description No Deficits Noted Gross Range of Motion Upper Extremity ROM Assessment Within Functional Limits Lower Extremity ROM Assessment Right Impaired Strength Upper Extremity Strength Assessment Within Functional Limits Lower Extremity Strength Assessment Right Impaired Hip 3+/5 Comments Strength Comments LLE grossly 4+/5 Sensation Assessment Sensation Gross Sensation Right LE Impaired,Left LE Impaired Comments Sensation Comments Pt reports diminished sensation proximally BLE Muscle Tone Muscle Tone WNL Yes M6 PT-IP Treatment Start: 08/10/20 14:32 Freq: NEEDED Status: Active Protocol: Document 08/12/20 10:32 KS (Rec: 08/12/20 14:36 KS [id number]) Physical Therapy Treatment Exercises Exercises Ankle Pumps,Gluteal Sets,Quad Sets,Heel Slides Education Education Provided Precautions,Weight Bearing Status,Post-Op Packet,Safety M7 PT-IP Assessment and Plan Start: 08/10/20 14:32 Freq: NEEDED Status: Active Protocol: Document 08/12/20 10:32 KS (Rec: 08/12/20 14:36 KS [id number]) PT Summary Assessment and Plan Potential Rehabilitation Potential Good Status of Condition at Evaluation Evolving Summary Impairments Pain,ROM,Strength,Balance, Sensation,Bed Mobility, Transfers,Gait,Activity Tolerance Progress Towards Goals Progressing Toward Goals,Slow Progress due to Medical Issues ,Slow Progress - Other Assessment Summary Pt SBA for bed mobility and able to tolerate LE strengthening exercises well. SBA for sup<>sit, upon sitting pt reported dizziness and BP after 2 min sitting 83/48. Pt unable to participate in further therapy d/t low BP however, has completed caregiver training previously and may go home when medically stable. She will benefit from outpatient rehab, which she has set up to begin next week. Goals Bed Mobility Goal Independent Transfer Goal Independent,Front Wheeled Walker Gait Goal Independent,Front Wheel Walker Gait Distance 200 Other Goals - up/down 5 steps with SPC, TREASURY SPECIALIST, or both pt would like to use back door with 2 4 threshold by using TREASURY SPECIALIST and SPC Days to Meet Goals 3 Frequency of Treatment Frequency Of Treatment Twice a Day Treatment Plan Physical Therapy Treatment Plan Bed Mobility Training,Transfer Training,Gait Training, Therapeutic Exercise,Balance Retraining,Post Op Education, Discharge Planning,Hot or Cold Pack,Manual Therapy Other Recommendations and Next Treatment ther ex; gait training with Focus FWW; stairs when able Recommendations To Nursing Amount of Assist Needed 1 Person Assist Discharge Recommendations PT Discharge Recommendations Home with Assistance, Outpatient PT Transportation Needs at Discharge Private Vehicle
[2020-08-12] MEDS: SODIUM CHLORIDE 0.9% 500 ML 1000 ML IV (12:43)
--- NOTE | 2020-08-12 14:39 | CM.DPNOTE ---
DC Note DC order in place and patient is expected to DC as expected. Patient has been cleared by therapy for return home w/assist from a friend w/outpatient PT f/u According to Safia Tomlin, patient has had a difficult recovery thus far secondary to h/o PTSD, anxiety and depression. Although patient still expected to return home. This NETWORK OPERATIONS CENTER ENGINEER following closely in case any DC needs or concerns arise today. SDC likely changed to observation according to JONNIE Hayes. JW
--- NOTE | 2020-08-12 16:33 | PT.IPTN ---
Current Diagnoses Unilateral primary osteoarthritis, right knee (08/10/20) Surgery Performed Operation Date: 08/10/20 10:45 Actual Procedures p Total Knee Arthroplasty(Right) - Dona Bocanegra MD Physical Therapy Treatment Note M2 PT-IP Current Condition Start: 08/10/20 14:32 Freq: NEEDED Status: Active Protocol: Document 08/10/20 16:21 AW (Rec: 08/10/20 16:44 AW [email or web address]) Physical Therapy Current Condition Current Condition Evaluation Date 08/10/20 Treatment Diagnosis R TKA; difficulty in walking Onset Date 08/10/20 Weight Bearing Status Weight Bearing Status Weight Bear as Tolerated M3 PT-IP Subjective Start: 08/10/20 14:32 Freq: NEEDED Status: Active Protocol: Document 08/12/20 16:09 KS (Rec: 08/12/20 17:36 KS [id number]) Subjective Physical Therapy Visit Type Type Treatment Note Visit Start Time 16:09 Visit Stop Time 16:33 Total Visit Minutes 24 Number of FAMILY AND CONSUMER SCIENCES TEACHER Visits 2 Physical Therapy Visit Comments Patient Comments Pt agreeable to work w/ therapy. M4 PT-IP Mobility and Gait Start: 08/10/20 14:32 Freq: NEEDED Status: Active Protocol: Document 08/12/20 16:09 KS (Rec: 08/12/20 17:36 KS [id number]) PT-Bed Mobility Assessment Supine to Sit Supine to Sit Standby Assistance Sit to Supine Sit to Supine Standby Assistance Scooting Scooting to Edge of Bed Standby Assistance Scooting Up and Down in Bed Standby Assistance PT-Transfer Assessment Sit to and From Stand Sit to and from Stand Contact Guard Assistance,1 Person Assistance,Use of Upper Extremities Equipment Transfer Assistive Device Gait Belt,Front Wheeled Walker Orthotic/Prosthetic Devices or Brace: No Transfers Transfer Destination Bed,Toilet Transfer Technique pt ambulated w/ FWW Transfer Ability Level of Assist Contact Guard Assistance,1 Person Assistance,Use of Upper Extremities Comments Mobility Comments Pt in bed from arrival from therapy and very fatigued. Pt SBA for sup<>sit and scooting EOB. Pts BP: 106/59. Pt then sit<>stand CGA and cues, BP: 111/38 w/ c/o dizziness. Pt sat back back. BP reassessed on L arm and 112/72 in sitting . Pt requested to use bathroom and refused BSC, informed pt it was unsafe to ambulate to bathroom but she insisted. HEALTH DIAGNOSTICS TEACHER assisted pt to bathroom. Pt CGA for stand<>Sit from toilet w/ FWW. Pt had bilateral knee buckling when leaving bathroom and required Mod A to recover. Pt ambulated back to bed and sup<>sit CGA. Pt left in bed w/ all needs in reach and RN notified of low BP w/ knee buckling. Gait Assessment Gait Gait Assistance Required: Moderate Assistance,1 Person Assist Distance (Feet) 20 Able to Maintain Weight Bearing Status Yes During Gait Assistive Devices Assistive Device Gait Belt,Front Wheeled Walker Orthotic/Prosthetic Devices or Brace: No Gait Deviations General Gait Pattern Antalgic,Decreased Stride Length,Decreased Feet Clearance,Step-to Gait Factors Limiting Gait Function Factors Limiting Gait Function Decreased Sensation,Decreased Strength,Pain,Poor Balance, Poor Safety Awareness Comments Gait Comments Pt ambulated ~20 ft w/ 2 PA primarily CGA, but did have bilateral knee buckling needing Mod A to recover. Stair Climbing Assessment Comments Stair Climbing Comments did not assess, low BP PT-Balance Assessment Sitting Balance and Reactions Static Sitting Balance Ability Good Dynamic Sitting Balance Ability Good Standing Balance and Reactions Static Standing Balance Ability Fair Dynamic Standing Balance Ability Fair Device Used FWW M5 PT-IP Objective Assessments Start: 08/10/20 14:32 Freq: NEEDED Status: Active Protocol: Document 08/10/20 16:21 AW (Rec: 08/10/20 16:44 AW [email or web address]) Orientation Orientation/Cognition Level of Alertness Alert Orientation Name,Day of Week,Place, Situation Language Function Ability No Deficits Noted Safety Awareness Understands Safety Issues Memory Description No Deficits Noted Gross Range of Motion Upper Extremity ROM Assessment Within Functional Limits Lower Extremity ROM Assessment Right Impaired Strength Upper Extremity Strength Assessment Within Functional Limits Lower Extremity Strength Assessment Right Impaired Hip 3+/5 Comments Strength Comments LLE grossly 4+/5 Sensation Assessment Sensation Gross Sensation Right LE Impaired,Left LE Impaired Comments Sensation Comments Pt reports diminished sensation proximally BLE Muscle Tone Muscle Tone WNL Yes M6 PT-IP Treatment Start: 08/10/20 14:32 Freq: NEEDED Status: Active Protocol: Document 08/12/20 16:09 KS (Rec: 08/12/20 17:36 KS [id number]) Physical Therapy Treatment Education Education Provided Precautions,Weight Bearing Status,Post-Op Packet,Safety M7 PT-IP Assessment and Plan Start: 08/10/20 14:32 Freq: NEEDED Status: Active Protocol: Document 08/12/20 16:09 KS (Rec: 08/12/20 17:36 KS [id number]) PT Summary Assessment and Plan Potential Rehabilitation Potential Good Status of Condition at Evaluation Evolving Summary Impairments Pain,ROM,Strength,Balance, Sensation,Bed Mobility, Transfers,Gait,Activity Tolerance Progress Towards Goals Progressing Toward Goals,Slow Progress due to Medical Issues ,Slow Progress - Other Assessment Summary Pt continues to be limited by low BP and dizziness. PT has poor safety awarness and needs frequent cues for safety. Pt had bilateral knee buckling during ambulation from toilet to bed, needing Mod A to recover. Will assess carryover w/ pt and caregiver tomorrow if pt appropriate.. Goals Bed Mobility Goal Independent Transfer Goal Independent,Front Wheeled Walker Gait Goal Independent,Front Wheel Walker Gait Distance 200 Other Goals - up/down 5 steps with SPC, RN AMBULATORY, or both pt would like to use back door with 2 4 threshold by using RN AMBULATORY and SPC Days to Meet Goals 3 Frequency of Treatment Frequency Of Treatment Twice a Day Treatment Plan Physical Therapy Treatment Plan Bed Mobility Training,Transfer Training,Gait Training, Therapeutic Exercise,Balance Retraining,Post Op Education, Discharge Planning,Hot or Cold Pack,Manual Therapy Other Recommendations and Next Treatment ther ex; gait training with Focus FWW; stairs when able Recommendations To Nursing Amount of Assist Needed 1 Person Assist Discharge Recommendations PT Discharge Recommendations Home with Assistance, Outpatient PT Transportation Needs at Discharge Private Vehicle
--- NOTE | 2020-08-12 22:13 | PC.NURSE ---
Addendum entered by Yoko Stephen R.N. 08/12/20 23:19: Late entry: 1520: pt worked with PT, but both her knees buckled. patient was also not able to do the stairs. PT reports that she is not safe to go home. later on pt woke up and went to the bathroom, SBA-FWW. minimal assist. no dizziness. Original Note: pt has been sleeping most of the time. Pt got up a couple times to use the BR. pt has been feeling weak and sleepy. PP++. denies tingling or numbness of extremities. pain is 4/10. dressing cdi. scds. denies any dizziness or light headed.
[2020-08-13] MEDS: IBUPROFEN 400 MG TABLET PO ×4 (00:30→12:27)
[2020-08-13 05:00] VITALS: BP 133/68; PULSE 64; RESP 18; TEMP 36.6; O2SAT 98
[2020-08-13] MEDS: ACETAMINOPHEN 325 MG TABLET 650 MG PO (09:10)
[2020-08-13] MEDS: LORATADINE 10 MG TABLET PO (09:11)
[2020-08-13] MEDS: ASPIRIN EC 81 MG TABLET PO (09:11)
[2020-08-13] MEDS: ATORVASTATIN 20 MG TABLET 40 MG PO (09:12)
[2020-08-13] MEDS: DOCUSATE 100 MG CAPSULE PO (09:12)
[2020-08-13] MEDS: PANTOPRAZOLE 40 MG TABLET 80 MG PO (09:12)
[2020-08-13] MEDS: CITALOPRAM 10 MG TABLET 40 MG PO (09:12)
[2020-08-13] MEDS: GABAPENTIN 300 MG CAPSULE 900 MG PO (09:13)
[2020-08-13] MEDS: SODIUM CHLORIDE 0.9% FLUSH 10 ML IV (09:15)
[2020-08-13] MEDS: OXYBUTYNIN 5 MG TABLET PO (09:20)
[2020-08-13] MEDS: FLUTICASONE 120 SPRAY/16 GM SPRAY.SUSP NASAL (09:21)
[2020-08-13 09:23] VITALS: BP 149/64; PULSE 66; RESP 16; TEMP 36.6; O2SAT 100
--- NOTE | 2020-08-13 11:27 | PT.IPTN ---
Current Diagnoses Unilateral primary osteoarthritis, right knee (08/10/20) Surgery Performed Operation Date: 08/10/20 10:45 Actual Procedures p Total Knee Arthroplasty(Right) - Dona Bocanegra MD Physical Therapy Treatment Note M2 PT-IP Current Condition Start: 08/10/20 14:32 Freq: NEEDED Status: Active Protocol: Document 08/10/20 16:21 AW (Rec: 08/10/20 16:44 AW [email or web address]) Physical Therapy Current Condition Current Condition Evaluation Date 08/10/20 Treatment Diagnosis R TKA; difficulty in walking Onset Date 08/10/20 Weight Bearing Status Weight Bearing Status Weight Bear as Tolerated M3 PT-IP Subjective Start: 08/10/20 14:32 Freq: NEEDED Status: Active Protocol: Document 08/13/20 10:37 KS (Rec: 08/13/20 13:38 KS [email or web address]) Subjective Physical Therapy Visit Type Type Treatment Note Visit Start Time 10:37 Visit Stop Time 11:27 Total Visit Minutes 40 Notes Split treatment 10:37-10:50, 11:00-11:27 Number of MOBILITY ARCHITECT Visits 3 Physical Therapy Visit Comments Patient Comments Pt agreeable to work w/ therapy. M4 PT-IP Mobility and Gait Start: 08/10/20 14:32 Freq: NEEDED Status: Active Protocol: Document 08/13/20 10:37 KS (Rec: 08/13/20 13:38 KS [email or web address]) PT-Bed Mobility Assessment Supine to Sit Supine to Sit Standby Assistance Sit to Supine Sit to Supine Standby Assistance Scooting Scooting to Edge of Bed Standby Assistance Scooting Up and Down in Bed Standby Assistance PT-Transfer Assessment Sit to and From Stand Sit to and from Stand Standby Assistance,Contact Guard Assistance,1 Person Assistance,Use of Upper Extremities Equipment Transfer Assistive Device Gait Belt,Front Wheeled Walker Orthotic/Prosthetic Devices or Brace: No Transfers Transfer Destination Bed,Wheelchair Transfer Technique pt ambulated w/ FWW Transfer Ability Level of Assist Contact Guard Assistance,1 Person Assistance,Use of Upper Extremities Comments Mobility Comments Pt in bed upon arrival from therapy w/ caregiver in room. Pt sup<>sit SBA , BP:137/72. Pt had sudden asthma attack during sitting and required personal inhaler, RN and respiratory notified. Returned to pt when cleared to continue w/ therapy. Pts caregiver Abi provided SBA and cues for sit<>stand and ambulation to w/c. Pt transported in w/c to stairs for energy conservation . Pt ascended/descended 3 steps w/ bilat hand rails and CGA and cues provided by pts friend/caregiver. Pt then ambulated back to room ~120 ft w/ SBA and cues for quad activation. Pts caregiver assisted pt in returning back to bed SBA and pt used gait belt for RLE assist into bed. Pt left in bed w/ all needs in reach and no further therapy realted questions or concerns. Gait Assessment Gait Gait Assistance Required: Standby Assistance,1 Person Assist Distance (Feet) 130 Able to Maintain Weight Bearing Status Yes During Gait Assistive Devices Assistive Device Gait Belt,Front Wheeled Walker Gait Deviations General Gait Pattern Antalgic,Decreased Stride Length,Decreased Feet Clearance,Step-to Gait Factors Limiting Gait Function Factors Limiting Gait Function Decreased Sensation,Decreased Strength,Pain,Poor Balance, Poor Safety Awareness Comments Gait Comments Pt ambulated ~130 ft w/ FWW and SBA provided by pts friend /caregiver. Pt needed min cues for quad activation, bt overall demonstrated good use of FWW. Stair Climbing Assessment Evaluation Level of Assist On Stairs Contact Guard Assistance,1 Person Assistance Devices Stair Climbing Assistive Devices Left Railing,Right Railing Technique/Endurance Stair Climbing Direction Ascend and Descend Stair Climbing Technique Step to Step Number of Steps Climbed 3 Stair Climbing Set # Repetitions (reps) 1 Comments Stair Climbing Comments Pt ascended/descended 3 steps w/ CGA and cues for sequencing provided by pts caregiver Abi. Abi states her stairs at home have bilateral hand rails. Both pt and caregiver state they feel safe to perform stairs at home. PT-Balance Assessment Sitting Balance and Reactions Static Sitting Balance Ability Good Dynamic Sitting Balance Ability Good Standing Balance and Reactions Static Standing Balance Ability Fair Dynamic Standing Balance Ability Fair Device Used FWW M5 PT-IP Objective Assessments Start: 08/10/20 14:32 Freq: NEEDED Status: Active Protocol: Document 08/10/20 16:21 AW (Rec: 08/10/20 16:44 AW [email or web address]) Orientation Orientation/Cognition Level of Alertness Alert Orientation Name,Day of Week,Place, Situation Language Function Ability No Deficits Noted Safety Awareness Understands Safety Issues Memory Description No Deficits Noted Gross Range of Motion Upper Extremity ROM Assessment Within Functional Limits Lower Extremity ROM Assessment Right Impaired Strength Upper Extremity Strength Assessment Within Functional Limits Lower Extremity Strength Assessment Right Impaired Hip 3+/5 Comments Strength Comments LLE grossly 4+/5 Sensation Assessment Sensation Gross Sensation Right LE Impaired,Left LE Impaired Comments Sensation Comments Pt reports diminished sensation proximally BLE Muscle Tone Muscle Tone WNL Yes M6 PT-IP Treatment Start: 08/10/20 14:32 Freq: NEEDED Status: Active Protocol: Document 08/13/20 10:37 KS (Rec: 08/13/20 13:38 KS [email or web address]) Physical Therapy Treatment Exercises Exercises Ankle Pumps,Gluteal Sets,Quad Sets,Heel Slides Education Education Provided Precautions,Weight Bearing Status,Post-Op Packet,Safety M7 PT-IP Assessment and Plan Start: 08/10/20 14:32 Freq: NEEDED Status: Active Protocol: Document 08/13/20 10:37 KS (Rec: 08/13/20 13:38 KS [email or web address]) PT Summary Assessment and Plan Potential Rehabilitation Potential Good Status of Condition at Evaluation Evolving Summary Impairments Pain,ROM,Strength,Balance, Sensation,Bed Mobility, Transfers,Gait,Activity Tolerance Progress Towards Goals Progressing Toward Goals,Slow Progress due to Medical Issues ,Slow Progress - Other Assessment Summary Pt SBA for mobility and SBA to CGA for ambulation and stairs .Pt had asthma attack after sup<>sit, RN and respiratory therapy called and approved further treatment after resolving. Pt ambulated ~150 ft w/ FWW w/ cues for quad activation and ascended/ descended 3 steps w/ bilat handrails. Pt and pts caregiver state they feel prepared and safe to return home. Pt will benefit from outpatient rehab to improve gait, ROM, and strength. Goals Bed Mobility Goal Independent Transfer Goal Independent,Front Wheeled Walker Gait Goal Independent,Front Wheel Walker Gait Distance 200 Other Goals - up/down 5 steps with SPC, CAMP COOK, or both pt would like to use back door with 2 4 threshold by using CAMP COOK and SPC Days to Meet Goals 3 Frequency of Treatment Frequency Of Treatment Twice a Day Treatment Plan Physical Therapy Treatment Plan Bed Mobility Training,Transfer Training,Gait Training, Therapeutic Exercise,Balance Retraining,Post Op Education, Discharge Planning,Hot or Cold Pack,Manual Therapy Other Recommendations and Next Treatment ther ex; gait training with Focus FWW; stairs when able Recommendations To Nursing Amount of Assist Needed 1 Person Assist Discharge Recommendations PT Discharge Recommendations Home with Assistance, Outpatient PT Transportation Needs at Discharge Private Vehicle
--- NOTE | 2020-08-13 12:03 | CM.DPC ---
Addendum entered by LESLIE Santiago 08/13/20 13:02: ADD: Return call from Tyree at [facility] and updated on pt status and PT recommendations and [place] confirms that pt likely will benefit at least for a while from their HHHA (homemaker home health aide) program and due to COVID they can bypass the waitlist likely. MELANIE faxed the few requested clinicals to Tyree to review and she will begin the pwk to enroll pt in the program. MELANIE met bedside with pt and friend and updated on above and pt very appreciative. BF Original Note: DCP Discharge Home Per Ortho PA, pt's bp stable and pt medically stable to d/c home with friend assist and outpt PT and no identified barriers to discharge. Per PT, pt was able to complete stairs and had friend bedside to participate in CG training today and recommending safe d/c home with assist and outpt PT. SW met bedside with pt and friend and explained role and pt confirms that she is agreeable with d/c home with 2 friends to stay with pt for 2 weeks and outpt PT. Friend will provide transport home today. Pt states she would like to practice showering today prior to d/c and SW updated RN and FOOD CRITIC. Pt also requesting that SW call her assigned [facility] SW at [facility] [place] ([phone]) as pt is 100% service connected and told that she can get in-home caregiver set up in case pt still needs someone to assist in the home once her friends return home in 2 weeks. Pt under the impression that [place] SW needs some clinical information from [facility] in order to set up caregiver. Pt states she was also contacted by [facility] caregiver agency stating that they are contracted with [place] and can set up caregiver if needed. Pt requesting SW call iLndsay at [facility] ([phone]) to determine if they need any clinicals faxed to their office. MELANIE called the [facility] MELANIE Clements and left msg inquiring if they need any medical clinicals in order to set up in-home caregiver assist. SW also called [facility] CG agency and they will coordinate with pt and decline needing any clinical information from [facility] at this time. SW updated pt and they are preparing to d/c home today via friend POV shortly after lunch and shower. Plan: Patient to d/c home with friend to stay and assist for 2 weeks and pt in contact with [facility] agency in case further assist needed after friend leaves in 2 weeks. No further SW needs at this time. Analilia Baltazar MSW
--- NOTE | 2020-08-13 13:42 | PC.NURSE ---
Pending discharge: Pt reports she is ready to d/c home. However pt relates she Had a tumble into bed and my left foot has been numb and tingly since. SI fell hard. Has been tolerating diet w/out problems. Ibuprofen and tylenol have been effective for pain. Vds w/out diff. Up and amb to the br for this life insurance underwriter without problems this am. Pt reports her tumble came after this. Given rx. Questions answered regarding discharge packet. Office called to inform them of pt reporting she had tumbled onto her bed and was reporting numbness to the lt foot. (non operated side) Instructed to notify VISHNU [place] in [place], this was done. She is currently in a case with Dr. Mccauley but can come up after that to see pt. Lt foot is numb and tingly across the top of the foot and the plantar surface mid foot to the beginning of the toes. No obvious injury is seen. PPP. Has brisk cap refill. Fernando SHAFER made aware also.
--- NOTE | 2020-08-13 14:40 | PC.NURSE ---
Pt and I were walking back from looking out the Pt's window this morning after having breakfast. Pt was using walker, and walking well with balance. Pt was close to the bed when she had a small moment of distraction and lost her balance, Pt regained balance with with me there holding her left arm and having her right arm holding the walker. She then continued to walk to the edge of bed. Pts legs were touching the bed and she sat down rather fast and abruptly. Pt sat for a moment and then stood back up with my help and the walker to sit higher up on the mattress to lay back down. Pt sat down again more slowly and carefully with no problems and or complaints, then laid back into bed.
--- NOTE | 2020-08-13 15:40 | PC.NURSE ---
VISHNU Brar returned call and notified pt reporting she had a tumble and lt foot was numb and tingly. No injury seen and has brisk cap refill. Okay to d/c pt home. Pt notified of same. She reports the foot is already less numb and tingly. Pt was d/c home via auto w/friend.
== END 2020-08-13 15:10 | disposition home or self-care (01) | DRG 470 ==
LOC: OR 08:53 → AC 09:00
PROVIDERS: Admitting Provider Orthopaedic Surgery; PCP Family Medicine; Referring Provider Orthopaedic Surgery; Visit Provider Orthopaedic Surgery
PROC: 0SRC0JZ Replacement of Right Knee Joint with Synthetic Substitute, Open Approach (ICD-10-PCS; CPT 27447; principal; 2020-08-10 10:45)
DX: M17.11 Unilateral primary osteoarthritis, right knee (principal); F32.9 Major depressive disorder, single episode, unspecified; J45.909 Unspecified asthma, uncomplicated; G51.0 Bell's palsy; E78.5 Hyperlipidemia, unspecified; I10 Essential (primary) hypertension
CPT/HCPCS: 36415; 73560; 85014; 85018; 94640; 94760; 97110; 97116; 97161; 97530; C1776; A9270; C9290; J0690; J1100; J2250; J2405; J2704; J3010

== ENCOUNTER → 2021-06-16 12:34 | Outpatient (CLI) | payer MEDICARE, OTHER, SELFPAY ==
[2020-08-10 09:16] VITALS: BMI 29.1
--- NOTE | 2021-06-16 13:25 | DI.MRI.S_ITS ---
PROCEDURE: MR LUMBAR SPINE WO CON INDICATIONS: Low back pain TECHNIQUE: Noncontrast sagittal T1 spin echo and T2 fast echo, sagittal STIR, axial T1 and T2 fast spin echo through the lumbar spine. In cases with scoliosis, additional coronal T2 fast spin echo may be performed. COMPARISON: [facility], CR, XR LUMBAR SPINE 2 OR 3 VIEWS, 06/01/2021, 15:42. FINDINGS: Image quality: Excellent. Alignment and Curvature: There is mild rightward curvature of thoracolumbar spine with apex at T12 level and compensatory leftward curvature of lumbar spine centered at L3-4 level. Grade 1 anterolisthesis of L4 on L5 is seen. Bone Marrow: Marrow is of normal overall signal. No acute vertebral body compression fractures. Spinal Cord: Conus medullaris terminates at the L1 level. Visualized cord demonstrates normal signal and size. Paraspinous Soft Tissues: No paravertebral masses. T12-L1: Loss of disc height and disc signal is noted. Mild diffuse disc bulge and bilateral facet arthrosis is seen with hypertrophy of ligamentum flavum. There is mild central canal stenosis and mild right-sided neural foraminal narrowing. L1-L2: There is loss of disc signal. Right worse than left bilateral facet arthrosis is seen. Mild broad-based disc bulge and hypertrophy of ligamentum flavum is noted. There is mild central canal stenosis and right-sided neural foraminal narrowing. No left-sided neural foraminal narrowing. L2-L3: There is near complete loss of disc height and loss of disc signal. Broad-based disc bulge and bilateral facet arthrosis with hypertrophy of ligamentum flavum is seen causing moderate central canal stenosis and moderate right-sided neural foraminal narrowing. Mild left-sided neural foraminal narrowing is also seen. L3-L4: Mildly loss of disc height and disc signal is seen. Broad-based disc bulge and bilateral facet arthrosis with hypertrophy of ligamentum flavum is noted. There is moderate central canal stenosis and left worse than right bilateral neural foraminal narrowing. L4-L5: Loss of disc signal is seen. There is broad-based disc bulge and bilateral facet arthrosis with hypertrophy of ligamentum flavum causing moderate central canal stenosis and left worse than right bilateral neural foraminal narrowing. Bulging disc likely contacting bilateral exiting L4 nerve roots. L5-S1: Mild diffuse disc bulge and bilateral facet arthrosis is seen, no significant canal stenosis. There is no significant neural foraminal narrowing. IMPRESSION: 1. Scoliosis of thoracolumbar spine as described above. No acute compression fracture. Grade 1 anterolisthesis of L4 on L5. No definite pars defect seen. 2. Degenerative disc disease throughout lumbar spine more prominent at L3-4 and L4-5 levels as above. Dictated by: Basilio Platt M.D. on 06/16/2021 at 14:26 Approved by: Basilio Platt M.D. on 06/16/2021 at 14:31
== END ==
PROVIDERS: PCP Family Medicine; Referring Provider Orthopaedic Surgery; Visit Provider Orthopaedic Surgery
DX: M54.5 Low back pain (principal); M51.36 Other intervertebral disc degeneration, lumbar region; M41.9 Scoliosis, unspecified; M43.16 Spondylolisthesis, lumbar region
CPT/HCPCS: 72148

== ENCOUNTER → 2021-07-08 15:48 | Outpatient (CLI) | payer MEDICARE, OTHER, SELFPAY ==
[2020-08-10 09:16] VITALS: BMI 29.1
[2021-07-08 16:09] LABS: COVID19 -Nasal RAPID Negative (Negative)
== END ==
PROVIDERS: PCP Family Medicine; Referring Provider Nurse Practitioner; Visit Provider Nurse Practitioner
DX: Z20.822 Contact with and (suspected) exposure to COVID-19 (principal)
CPT/HCPCS: 87635

== ENCOUNTER → 2021-12-26 12:50 | Outpatient (CLI) | payer MEDICARE, OTHER, SELFPAY ==
[2020-08-10 09:16] VITALS: BMI 29.1
--- NOTE | 2021-12-26 | DI.RAD.S_ITS ---
PROCEDURE: XR ABDOMEN MIN 2V INDICATIONS: Irritable bowel syndrome without diarrhea TECHNIQUE: 2 views of the abdomen were acquired. COMPARISON: None. FINDINGS: Surgical changes and devices: Tubal ligation clips. Bowel: No pneumoperitoneum. The bowel gas pattern is nonspecific Soft tissues: No masses; visualized solid organ contours appear normal in size. No suspicious abdominal calcifications. Bones: Spine degenerative disc disease. Convex right thoracolumbar spine scoliosis. IMPRESSION: Nonspecific bowel gas pattern without definite evidence of obstruction. Dictated by: Claire Sarkar MD, PhD on 12/26/2021 at 16:01 Approved by: Claire Sarkar MD, PhD on 12/26/2021 at 16:01
== END ==
PROVIDERS: PCP Family Medicine; Referring Provider Internal Medicine Gastroenterology; Visit Provider Internal Medicine Gastroenterology
DX: K58.9 Irritable bowel syndrome, unspecified (principal)
CPT/HCPCS: 74019

== ENCOUNTER → 2022-05-03 11:33 | Outpatient (CLI) | payer MEDICARE, OTHER, SELFPAY ==
[2020-08-10 09:16] VITALS: BMI 29.1
--- NOTE | 2022-05-03 | DI.MRI.S_ITS ---
PROCEDURE: MR KNEE LT WO CON INDICATIONS: UNILATERAL PRIMARY ARTHRITIS, LEFT KNEE TECHNIQUE: Noncontrast sagittal PD fast spin echo and T2 fast spin echo with fat saturation, sagittal 3-D FLASH with fat saturation; coronal T1 spin echo and PD fast spin echo with fat saturation, and axial PD fast spin echo with fat saturation through the knee. COMPARISON: [facility], MR, MR KNEE RT WO CON, 07/08/2020, 16:05. FINDINGS: Image quality: Excellent. Menisci: Oblique tear involving posterior horn of medial meniscus is seen extending to inferior articulating surface. Peripheral displacement of lateral meniscus bowing lateral collateral ligament is seen. Complex tear involving anterior horn, body and posterior horn of lateral meniscus is noted extending to both superior and inferior articulating surfaces. Torn lateral meniscal root ligaments is seen. Cruciate ligaments: Patient is status post anterior cruciate ligament reconstruction with thickened ACL graft. No ACL graft rupture is seen. PCL is intact. Medial structures: The medial collateral ligament appears intact. The posterior oblique ligament, semimembranosus tendon insertions, oblique popliteal ligament, and meniscocapsular junction appear intact. Visualized portions of the pes anserinus tendons appear normal. No abnormal bursal fluid. Lateral structures: The lateral collateral ligament is thickened. The long and short heads of the biceps femoris tendon appear intact. The popliteus tendon appears normal; the popliteofibular ligament appears intact. Iliotibial band appears normal. Anterior structures: The quadriceps and patellar tendons appear intact. Patellar alignment is normal. No femoral trochlear dysplasia or ventral trochlear prominence. No edema in the infrapatellar fat pad. Bones and cartilage: Postsurgical changes are noted in distal femur and proximal tibial shaft. Moderate to severe tricompartmental osteoarthritis and chondromalacia is seen most prominent in lateral femoral tibial compartment with gracy prominent lateral marginal osteophyte formation. No acute fracture or dislocation. No gross marrow edema. Joint space: There is moderate joint effusion. A small popliteal cyst is seen. Normal appearing synovial plicae are incidentally noted. IMPRESSION: 1. Prior ACL repair with postsurgical changes. Moderate to severe tricompartmental osteoarthritis and chondromalacia most prominent in lateral femoral tibial compartment. No acute fracture or dislocation. Moderate joint effusion and a small popliteal cyst. 2. No full-thickness ACL graft rupture. Intrasubstance T2 hyperintense signal within ACL graft suggestive of sprain/low-grade partial-thickness tear. PCL is intact. 3. Complex tear involving entire lateral meniscus extending to both superior and inferior articulating surfaces with suggestion of torn lateral meniscal root ligaments. Oblique tear involving posterior horn of medial meniscus extending to inferior articulating surface. 4. Low to moderate grade LCL sprain/partial-thickness tear. Dictated by: Basilio Platt M.D. on 05/03/2022 at 17:09 Approved by: Basilio Platt M.D. on 05/03/2022 at 20:16
== END ==
PROVIDERS: Referring Provider Orthopaedic Surgery; Visit Provider Orthopaedic Surgery
DX: S83.272A Complex tear of lateral meniscus, current injury, left knee, initial encounter (principal); S83.242A Other tear of medial meniscus, current injury, left knee, initial encounter; S83.422A Sprain of lateral collateral ligament of left knee, initial encounter; M17.12 Unilateral primary osteoarthritis, left knee; M94.262 Chondromalacia, left knee; M71.22 Synovial cyst of popliteal space [Baker], left knee
CPT/HCPCS: 73721

== ENCOUNTER → 2022-06-26 11:36 | Outpatient (CLI) | payer MEDICARE, OTHER, SELFPAY ==
[2020-08-10 09:16] VITALS: BMI 29.1
[2022-06-26 12:46] LABS: COVID19 -Nasal RAPID Negative (Negative)
== END ==
PROVIDERS: Referring Provider Orthopaedic Surgery; Visit Provider Orthopaedic Surgery
DX: Z20.822 Contact with and (suspected) exposure to COVID-19 (principal)
CPT/HCPCS: 87635; C9803

== ENCOUNTER 2022-06-28 14:11 | Observation (INO) | payer MEDICARE, OTHER, SELFPAY ==
[2020-08-10 09:16] VITALS: BMI 29.1
[2022-06-14 12:44] VITALS: BMI 27.3
[2022-06-27] VITALS (10 sets, daily range): BP systolic 111–135; BP diastolic 46–75; PULSE 62–83; RESP 12–20; TEMP 36.1–36.8; O2SAT 94–99; BMI 27.3
--- NOTE | 2022-06-27 09:11 | SUR.PREOP ---
[id number]-ihldynunu allergey with neoprene vs mediciation orders with Dr Bettencourt to proceed with meds.
[2022-06-27] MEDS: ACETAMINOPHEN 325 MG TABLET 975 MG PO (09:59)
[2022-06-27] MEDS: CELECOXIB 200 MG CAPSULE PO (09:59)
[2022-06-27] MEDS: LACTATED RINGERS 1,000 ML 42 ML IV (10:01)
[2022-06-27] MEDS: VANCOMYCIN 1,000 MG/200 ML PIGGYBACK 200 MG IV (10:12)
--- NOTE | 2022-06-27 10:33 | PM.PREOP ---
Pre-operative Note COVID-19 COVID-19 status: Negative Interval Note History & Physical reviewed/Exam performed by Physician: Yes Changes to H&P: No
--- NOTE | 2022-06-27 10:33 | PM.OP.1 ---
Operative Date/Time/Diagnoses Date of procedure: 06/27/22 Time of procedure: 11:20 Pre-op diagnosis: left knee OA, retained hardware Post-op diagnosis: same Procedure & Clinicians Procedure: Left total knee arthroplasty, removal of retained internal fixation Same procedure as scheduled: Yes Indications: The patient has had progressively worsening left knee pain with radiographic changes consistent with arthritis. Non-operative management has failed and the patient has requested total knee replacement. The risks, benefits and alternatives to surgery were discussed with the patient prior to proceeding. Risks discussed included, but were not limited to, failure to relieve pain, stiffness, infection, nerve damage, deep venous thrombosis, pulmonary embolism, stroke, coma, heart attack, permanent paralysis and , as well as the potential need for eventual revision of the prosthetic. Surgeon: Dona Bocanegra Sliver Lap Machine Tender: Ken Heaton Anesthesia Type: General and Spinal Operative Notes Findings: Severe left knee arthritis, hardware removed without difficulty. Closure Type: primary Specimen(s): none sent Prosthetic devices, grafts, tissues, transplants, or devices: Bocanegra and Nephew Journey BCS 2 size 4 femur, size 3 tibia, 35 by 7.5 mm patella, +10 poly Estimated Blood Loss (mL): 250 Blood products transfused: none Tourniquet time (min): 64 Procedure in detail: The patient was seen in the pre-operative area, where the patient identified the left knee as the operative site and this was marked with my initials. The patient received pre-operative antibiotics, and was taken to the operating room and placed on the operative table in the supine position. After satisfactory anesthesia, a senior drupal developer out was performed. The left leg was encircled with a tourniquet about the proximal thigh, and the leg was prepared from the toes to the tourniquet with ChloroPrep in the usual fashion and draped through sterile drapes. The leg was elevated and exsanguinated with Eschmark bandage and the tourniquet inflated to [250] mmHg pressure. The knee was approached through an approximately 22 cm incision centered over the patella and carried into the knee through a medial parapatellar arthrotomy. I identified her tibial screw and removed the screw and the washer without difficulty. A portion of the medial and lateral meniscus was resected. Soft tissue was carefully mobilized around the patella the patella was measured with a caliper. Bone was resected from the patella and the patellar height was reconstituted with up an appropriate sized patellar component. A cover was then placed on the patella. A small amount of additional medial and lateral meniscus was resected. The visionare guide fit well to the distal femur. It looked like an appropriate distal femoral cut and the cut was made without difficulty. The rotation was assessed and the appropriate size femoral guide was placed on the distal femur and finishing cuts were made. There was no evidence of notching. The anterior, posterior and chamfer cuts were then made. The posterior osteophytes and soft tissues were then removed. The posterior capsule was injected with part of a mixture of 60 ml 0.25% Marcaine mixed with 20 ml Exparel for post operative pain control. The remainder of this mixture was injected into the capsule and subcutaneous tissues during cement curing. The tibia was prepared and the visionaire guide fit well to the distal tibia. The rotation was assessed. The patient was placed in extension residual medial and lateral meniscus as well as any residual bone was carefully resected. [No] additional tibia was resected. Hemostasis was achieved especially posteriorly. Additional local was injected into the posterior capsule. The extension gap was assessed and additional releases for gap balancing were performed as necessary. It was checked with the gap chip mixing machine operator. The femoral component was trial was placed and the notch was finished. Trial tibial and femoral components were then placed and the knee placed through a range of motion. Range of motion was [0-130], with good stability throughout the range. The trials were then removed, and the tibia was finished. The bone was prepared with pulsatile lavage, and dried with a sponge. Cement was applied and the final prosthetics placed. Excess cement was removed during and after cement curing. A brief Betadine soak was performed. After confirming there was no extruded cement posteriorly, the final tibial insert was placed. The knee was copiously irrigated and the tourniquet deflated. Hemostasis was obtained with the Bovie cautery. A drain was placed and brought out superolaterally. The capsule was closed with interrupted Vicryl suture. The subcutaneous layer was closed with barbed sutures, and the skin with a running 3-0 V-Lock suture and Surgical glue. An Aquacel Ag dressing was applied and the patient was taken to recovery having tolerated the procedure well. Complications: none Post-operative Condition: stable Disposition: Acute Care Plan for aftercare: The patient will be maintained on a standard total knee replacement protocol with weight bearing as tolerated. The patient will receive aspirin and sequential compression devices for DVT prophylaxis. The patient will be discharged home when safe for the home environment.
[2022-06-27] MEDS: TRANEXAMIC ACID 1,000 MG VIAL 2000 MG INJ (11:30)
[2022-06-27] MEDS: CEFAZOLIN 2 GM/100 ML PREMIX 100 ML IV ×2 (11:30→20:06)
--- NOTE | 2022-06-27 12:00 | SUR.OPER ---
Supine on padded OR bed, head on pillow, arms secured on padded arm boards at <90 degrees abduction, legs uncrossed, safety belt at thigh, tape over blanket over lower legs. POSITION APPROVED BY SURGEON AND ANESTHESIA
[2022-06-27] MEDS: BUPIVACAINE 0.25% (PF) 60 ML, EPINEPHrine 0.3 MG INJ (12:07)
[2022-06-27] MEDS: BUPIVACAINE LIPOSOME 266 MG/20 ML VIAL INJ (12:08)
[2022-06-27] MEDS: VANCOMYCIN 1,000 MG VIAL 1000 MG TOP (12:47)
[2022-06-27] MEDS: HYDROMORPHONE 2 MG INJ IV (13:35)
[2022-06-27] MEDS: OXYCODONE IR 5 MG TABLET PO (13:40)
[2022-06-27] MEDS: ONDANSETRON 4 MG/2 ML INJ IV (13:44)
--- NOTE | 2022-06-27 13:58 | SUR.PHASEI ---
PT RESTING QUIETLY. RESP EVEN AND UNLABORED. STATES PAIN IS CONTROLLED. LEFT LOWERR EXTREMITY REMAINS ELEVATED. NO COMPLAINTS VOICED
[2022-06-27] MEDS: LACTATED RINGERS 1,000 ML 100 ML IV ×2 (14:20→23:59)
[2022-06-27] MEDS: OXYCODONE IR 10 MG TABLET PO ×3 (14:58→23:57)
--- NOTE | 2022-06-27 15:06 | PC.NURSE ---
Patient was brought up to room 220 from PACU, charge coordinator settling patient and reports that patient c/o 8/10 headache pain. patient reports she is prone to migraines. Left knee incision is intact wrapped with minda wrap, denies pain to her knee at this time.
[2022-06-27] MEDS: GABAPENTIN 300 MG CAPSULE 600 MG PO ×2 (15:17→20:07)
--- NOTE | 2022-06-27 15:20 | DI.RAD.S_ITS ---
PROCEDURE: XR KNEE LT 1TO2V INDICATIONS: TOTAL LEFT KNEE TECHNIQUE: 2 view(s) of the knee acquired. COMPARISON: [facility], CR, XR KNEE RT 1TO2V, 08/10/2020, 13:51. FINDINGS: Bones: Patient is status post knee joint arthroplasty. Hardware components are in expected positions. Visualized bony structures are intact. Soft tissues: Overlying postoperative changes are noted. IMPRESSION: Postop changes from left total knee arthroplasty with anatomic left knee alignment. Dictated by: Basilio Platt M.D. on 06/27/2022 at 14:14 Approved by: Basilio Platt M.D. on 06/27/2022 at 14:15
--- NOTE | 2022-06-27 16:17 | PT-IP ANOTE ---
Physical therapy order received. Spoke with her nurse who reports her LE is still numb. Will hold evaluation until tomorrow.
[2022-06-27] MEDS: ACETAMINOPHEN 325 MG TABLET 650 MG PO ×2 (18:01→23:56)
[2022-06-27] MEDS: BUDESONIDE 0.5 MG/2 ML NEB INH (19:20)
[2022-06-27] MEDS: SERTRALINE 50 MG TABLET 150 MG PO (20:07)
[2022-06-27] MEDS: DOCUSATE 100 MG CAPSULE PO (20:07)
[2022-06-27] MEDS: ASPIRIN EC 81 MG TABLET PO (20:07)
[2022-06-27] MEDS: MELATONIN 3 MG TABLET PO (20:10)
[2022-06-27] MEDS: PROPRANOLOL 10 MG TABLET 20 MG PO (20:11)
[2022-06-28] VITALS (7 sets, daily range): BP systolic 108–119; BP diastolic 48–65; PULSE 70–79; RESP 16–19; TEMP 36.3–36.8; O2SAT 94–100
[2022-06-28] MEDS: CEFAZOLIN 2 GM/100 ML PREMIX 100 ML IV (04:06)
[2022-06-28] MEDS: OXYCODONE IR 5 MG TABLET PO ×2 (04:06→10:21)
[2022-06-28 05:48] LABS: Hematocrit 30.8 % (36-46); Hemoglobin 10.4 g/dL (12.0-16.0)
--- NOTE | 2022-06-28 07:36 | PM.PNPO.1 ---
Subjective Subjective Date Patient Seen: 06/28/22 Time Patient Seen: 07:36 Interval history: Pain is been [id number]. Denies fever or chills. No nausea vomiting. Patient became very lightheaded using bedside commode yesterday evening. She has not yet participated in physical therapy. Patient does have assistance at home. Exam Vital Signs (past 8 hours): - 06/28/22 00:00 06/28/22 04:00 Temperature 97.6 F 98.0 F Pulse Rate 74 79 Respiratory Rate 17 16 Blood Pressure 109/65 108/48 L Pulse Oximetry 94 97 Oxygen Delivery Method Room Air Narrative Exam Narrative: 71-year-old female resting comfortably in bed in no apparent distress. Knee dressing is Clean, dry, intact.. Motor functions intact bilateral lower extremities. Sensation grossly intact to light touch bilateral lower extremities. 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 Celiac disease (2021) Colon polyps COVID-19 virus infection Depression Easy bruisability Eczema GERD (gastroesophageal reflux disease) Hammer toe of right foot HLD (hyperlipidemia) Hypoglycemia IBS (irritable bowel syndrome) Melanoma Migraine headache Osteoarthritis Ovarian cancer Overactive bladder PTSD (post-traumatic stress disorder) Rabies exposure (06/2020) Right wrist fracture (05/2020) Sensitive skin Suicidal ideation Surgical History History of arthroplasty of right knee (08/10/20) History of bilateral breast implants History of bunionectomy of both great toes History of right oophorectomy Hx of bilateral cataract extraction Hx of left knee surgery Hx of tonsillectomy Social History household members: none Smoking Status: Never smoker alcohol intake: current Assessment & Plan Post-op Postoperative Procedures: Procedures Operation Date: 06/27/22 11:15 Actual Procedure Side Surgeon p Total Knee Arthroplasty Left Dona Bocanegra MD Postoperative day: 1 Postoperative status: doing well Postoperative status narrative: Patient progressing as expected status post total knee arthroplasty Postoperative plan: routine post-op care Postoperative plan narrative: Patient will be maintained on standard total knee replacement protocol with weight-bearing as tolerated. Patient to mobilize with physical therapy Multimodal pain management Aspirin 81 mg b.i.d. Disposition likely home today after physical therapy if her lightheadedness/dizziness resolves.
[2022-06-28] MEDS: BUDESONIDE 0.5 MG/2 ML NEB INH ×2 (08:48→21:00)
[2022-06-28] MEDS: GABAPENTIN 300 MG CAPSULE 600 MG PO ×3 (10:06→21:00)
[2022-06-28] MEDS: PANTOPRAZOLE DR 40 MG TABLET PO ×2 (10:06→20:59)
[2022-06-28] MEDS: LORATADINE 10 MG TABLET PO (10:07)
[2022-06-28] MEDS: ATORVASTATIN 20 MG TABLET 40 MG PO (10:07)
[2022-06-28] MEDS: ASPIRIN EC 81 MG TABLET PO ×2 (10:07→20:58)
[2022-06-28] MEDS: FLUTICASONE 120 SPRAY/16 GM SPRAY.SUSP NASAL ×2 (10:13→21:04)
[2022-06-28] MEDS: DOCUSATE 100 MG CAPSULE PO ×2 (10:13→20:59)
--- NOTE | 2022-06-28 11:21 | CM.DANOTE ---
DCP: Case received, EMR reviewed and met with patient. Introduced self and role. Was able to obtain information regarding patient's baseline activity status prior to surgery. DCP assessment completed with information currently available. Patient is a 71 year old female who admitted yesterday morning to the care of the orthopedic team. PCP: Dr. M[facility] in [place]. Payer: confirmed: Medicare/[employer]. Patient came to the hospital via private vehicle for a surgical procedure. Patient had left total knee arthroplasty. Patient has history of osteoarthritis. Met with patient in her room. She is pleasant, alert and oriented. Confirmed that she resides in [place] alone, but her friend, Rosemarie, is staying with her for several days. She gets her care from [facility], and has someone help her at home through the [facility] once a week. At her baseline, she does drive, and has a cane. She is retired [employer]. Mentioned home health services, she is interested. Gave her the Medicare Choice List to review. She will be working with P.T. P: DCP to continue to follow. Plan is home, and will follow up with P.T. to see if home health will be needed. Jazmyn Link RN/Cocoa Roaster Discharge Planning/Care Management CM Discharge Assessment Start: 06/28/22 11:19 Freq: Status: Active Protocol: Document 06/28/22 11:19 (Rec: 06/28/22 11:21 [id number]) Discharge Planning Assessment Assigned Plastics Tooling Engineer Jazmyn Weathers RN/Cocoa Roaster Advance Directives? No History Provided By Patient,Medical Record Prior Living Arrangements House Household Members none Type of transporation used prior to Drives own vehicle admit Independent with ADL's Yes Is patient alert and oriented? Yes DME Already Rented / Owned Cane Comment Patient reports that she may need FWW for home use if recommended. Patient/Family Preference OP PT Therapy Comment Patient expressed interest in home health services. Barriers to Discharge No Discharge Plan Home Referrals Initiated Other Additional Comment Patient is reviewing home health agencies. If patient plan is home with home health Yes: There are presigned face : Has signed face to face form been to face forms. completed? Medicare Choice List Provided Yes Whiteboard Updated in Patient Room with Yes name and ext. # of Plastics Tooling Engineer Review Status In Process Next Review Type Continued Stay Review Pre-Anesthesia Assessment Start: 06/14/22 12:43 Freq: Status: Active Protocol: Document 06/14/22 12:44 CAB (Rec: 06/14/22 13:50 CAB [id number]) Pre-Anesthesia Assessment Preferred Name [facility] Patient Information Reviewed Via Phone Assessment Assessment Completed With Patient Comment Labs/ECG done per pt, not available, COVID screen-pt needs to schedule Primary Care Provider Aida Seen Specialist in Last 12 Months Yes Specialist Seen Opthamologist/Car Electronics Installer, Orthopedist,Urologist Comment PCP visit 02/24/22 scanned to record Primary Language Liberian Preferred Language Liberian Oxygraph Operator Required No Height 5 ft 7 in Weight 175 lb Body Mass Index (BMI) 27.3 Hearing Ability Normal Visual Assist Magnifying Glass Dentition Type Teeth, Natural Present,Dental Implants Barriers to Learning Memory Comment Occasional with short term memory Hx Anesthesia Reactions Yes: I woke up with a migraine, throwing up Hx Family Anesthesia Reaction No Hx Malignant Hyperthermia No Hx Blood Transfusions Yes: s/p Hx Blood Transfusion Reaction No Anesthesia Review Requested No alcohol intake current alcohol intake frequency a few times a week Smoking Status Never smoker Substance Use Type marijuana Comment Pt advised not to smoke marijuana 24 hours prior Pain Present Pain Reported Musculoskeletal Symptoms Abnormal Gait,Back Pain, Difficulty Walking,Joint Pain, Neck Pain History of Falling (Recent or History of Yes ) Patient is completely paralyzed or No completely immobile Prosthesis or Orthotic Device Cane Mental Status Oriented to own ability Is patient on oxygen? No Does patient have JUNIOR/SOB Yes Hx Sleep Apnea No CPAP/BIPAP use not prescribed Currently Taking a Beta Angie Yes: Propranolol Can You Climb a Flight of Stairs Without No SOB Hx Chest Pain No Hx SOB Yes Hx Syncope or Dizziness Yes: lightheadedness-randomly since approx the beginning 2021 Anti-Coagulant Therapy No Has a Train Brakeman No Cardiac Testing No Hx Pacemaker/ICD No Pacemaker Rep Required? No Diet Type At Home Regular dysphagia No Gastrointestinal Symptoms Diarrhea,Reflux Bladder Pattern Frequency,Incontinent,Urgency Urinary Catheter Present No Hx Urinary Self Catheterization No Diabetes No Patient No Lactating No Hx Drug Resistant Organism Yes: C-diff '05 Presence of External or Internal Medical Yes: Bilat eye lens, left knee Devices , bogdan toes, right knee Have you had any close contact with Yes: Covid end of Oct- someone diagnosed with COVID-19? beginning November 2021 Received a COVID vaccine? Yes: Arm is still sore from booster 4 months ago Received all doses? Yes Marital Status Single Lives With none Prior Living Arrangements House Support System Caregiver,Friend(s) Does the Patient Have Assistance After Yes: Always Caring through [facility] is working to have a caregiver Patient Discharge Plan Description Return Home Comment Pt advised overnight length Feels Safe in Current Environment Yes Been Physically Hurt or Threatened By a No Person in Current Environment Do you have thoughts of harming yourself None or others? Are you currently considering suicide? No Do you have a plan to hurt yourself or No Plan others? Do You Have Any Spiritual Beliefs That No May Affect Your HC Choices? Do You Have Any Cultural Practices That No May Affect Your HC Choices? Comment Sikh Who Can We Speak to About Patient's Care Family, friends Identifying Code for Release of Patient Declines to issue Information Health Care Proxy/Next of Kin Ada (friend) Health Care Proxy Emergency Contact Name Ada (friend) Emergency Contact Advance Directives? No Power of Export Documents Clerk Yes Power of Export Documents Clerk Name Ada (friend) Power of Export Documents Clerk PAC Instructions Do not shave/clip surgical site,Durable medical equipment ,Medications to take/avoid, Nasal antibiotic,No ETOH/ petroleum product on skin DOS, NPO,Pre-surgical wash,Sturdy shoes/comfortable clothes,Do not bring valuables and remove jewelry
--- NOTE | 2022-06-28 11:57 | PT.IIE ---
Current Diagnoses Unilateral post-traumatic osteoarthritis, left knee (06/27/22) Pain in left knee (06/27/22) Surgery Performed Operation Date: 06/27/22 11:15 Actual Procedures p Total Knee Arthroplasty(Left) - Dona Bocanegra MD Surgical History (Last Reviewed 06/28/22 @ 07:39 by Ken Heaton PA-C) History of arthroplasty of right knee (08/10/20) History of bilateral breast implants History of bunionectomy of both great toes History of right oophorectomy Hx of bilateral cataract extraction Hx of left knee surgery Hx of tonsillectomy Medical History (Last Reviewed 06/28/22 @ 07:39 by Ken Heaton PA-C) Allergic rhinitis Anxiety Asthma Back pain 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 Celiac disease (2021) Colon polyps COVID-19 virus infection Depression Easy bruisability Eczema GERD (gastroesophageal reflux disease) Hammer toe of right foot HLD (hyperlipidemia) Hypoglycemia IBS (irritable bowel syndrome) Melanoma Migraine headache Osteoarthritis Ovarian cancer Overactive bladder PTSD (post-traumatic stress disorder) Rabies exposure (06/2020) Right wrist fracture (05/2020) Sensitive skin Suicidal ideation Physical Therapy Inpatient Evaluation/Re-Eval M1 PT/OT-IP Prior Functional Status Start: 06/28/22 13:22 Freq: NEEDED Status: Active Protocol: Document 06/28/22 11:57 DLM (Rec: 06/28/22 13:45 [email or web address] [id number]) Medical Review Prior Functional Status Medical History Reviewed Yes Diet/Fluid Consistency Regular Communication WFL Mobility and Gait Independent with 4WW or cane Activities of Daily Living and IADL's Independent Prior Functional Level (Other details) recovered well after right TKA Social History Household Members none Living Arrangements House Number of Floors (Floors) One Floor Number of Stairs To Enter/Railing? 3-4 with two rails in garage ( taller steps), other door has 2 small steps but no rails Home Environment Standard Height Toilet,Walk in Shower Home Equipment Four Wheel Walker,Straight Cane,Shower Seat with Backrest ,Grab Bars In Shower Employment Status Retired Additional Social History Comment retired , she has a service dog, her friend plans to stay with her at discharge to help her M2 PT-IP Current Condition Start: 06/28/22 13:22 Freq: NEEDED Status: Active Protocol: Document 06/28/22 11:57 DLM (Rec: 06/28/22 13:45 DLM [id number]) Physical Therapy Current Condition Current Condition Evaluation Date 06/28/22 Treatment Diagnosis Left TKA, difficulty ambulating Onset Date 06/27/22 M3 PT-IP Subjective Start: 06/28/22 13:22 Freq: NEEDED Status: Active Protocol: Document 06/28/22 11:57 DLM (Rec: 06/28/22 13:45 DLM [id number]) Subjective Physical Therapy Visit Type Type Initial Evaluation Visit Start Time 10:58 Visit Stop Time 11:57 Total Visit Minutes 59 Number of CARTRIDGE BELT PUNCHER Visits 0 Physical Therapy Visit Comments Patient Comments she is not sure if she is ready to go home today Patient Goals discharge home with her friend to help M4 PT-IP Mobility and Gait Start: 06/28/22 13:22 Freq: NEEDED Status: Active Protocol: Document 06/28/22 11:57 DLM (Rec: 06/28/22 13:45 DLM [id number]) PT-Bed Mobility Assessment Supine to Sit Supine to Sit Standby Assistance Scooting Scooting to Edge of Bed Independent PT-Transfer Assessment Sit to and From Stand Sit to and from Stand Contact Guard Assistance,Use of Upper Extremities Equipment Transfer Assistive Device Gait Belt,Front Wheeled Walker Transfers Transfer Destination Chair Transfer Technique Stand Step Pivot Transfer Ability Level of Assist Contact Guard Assistance,Use of Upper Extremities Comments Mobility Comments Pt up to recliner this visit. Vital signs: BP 132/74, HR 76 in supine BP 132/52, HR 67 in sitting pt did not want to stand long enough to get BP taken, no light-headedness in standing nor during gait Gait Assessment Gait Gait Assistance Required: Contact Guard Assist Distance (Feet) 22 Able to Maintain Weight Bearing Status Yes During Gait Assistive Devices Assistive Device Gait Belt,Front Wheeled Walker Gait Deviations General Gait Pattern Antalgic,Decreased Stride Length,Flexed Trunk Factors Limiting Gait Function Factors Limiting Gait Function Decreased Activity Tolerance, Decreased Strength,Limited Range of Motion,Pain,Poor Balance Comments Gait Comments Pt able to ambulate around the room, She demonstrates good use of her UE's to manage left LE weakness/pain Stair Climbing Assessment Comments Stair Climbing Comments will need to do stair training before discharge home PT-Balance Assessment Sitting Balance and Reactions Static Sitting Balance Ability Normal Dynamic Sitting Balance Ability Normal Standing Balance and Reactions Static Standing Balance Ability Good Dynamic Standing Balance Ability Fair Device Used FWW M5 PT-IP Objective Assessments Start: 06/28/22 13:22 Freq: NEEDED Status: Active Protocol: Document 06/28/22 11:57 DLM (Rec: 06/28/22 13:45 DL [id number]) Orientation Orientation/Cognition Level of Alertness Alert Orientation Name,Age,Birthday,Month,Date, Year,Day of Week,Place, Situation Language Function Ability No Deficits Noted Safety Awareness Understands Safety Issues Memory Description No Deficits Noted Comments anxious, intermittent nausea with wretching but no vomiting at this time Gross Range of Motion Upper Extremity ROM Assessment Within Functional Limits Lower Extremity ROM Assessment Left Impaired Impairments knee pain limits ROM, lacking 20 degrees ext in supine, tolerates 85 degrees flexion sitting (AROM) Strength Upper Extremity Strength Assessment Within Functional Limits Lower Extremity Strength Assessment Left Impaired Hip able to lift LE off bed with difficulty and extensor lag Knee ext 2+/5 Ankle DF 4+/5 Comments Strength Comments pain left knee with all activity Coordination Assessment Gross Coordination Gross Coordination WNL Sensation Assessment Sensation Gross Sensation WNL Comments Sensation Comments minda wrap in place over left knee so not tested at this time Muscle Tone Muscle Tone WNL Yes M6 PT-IP Treatment Start: 06/28/22 13:22 Freq: NEEDED Status: Active Protocol: Document 06/28/22 11:57 DLM (Rec: 06/28/22 13:45 [facility] [id number]) Physical Therapy Treatment Exercises Exercises Ankle Pumps,Quad Sets,Heel Slides,Straight Leg Raises, Short Arc Quads,Passive Knee Extension Hang,Seated Knee Flexion/Extension Education Education Provided Weight Bearing Status,Post-Op Packet,Safety Other Treatments Other Treatment Performed Her friend arrived this visit and observed therapy session, pt's service dog also arrived this visit M7 PT-IP Assessment and Plan Start: 06/28/22 13:22 Freq: NEEDED Status: Active Protocol: Document 06/28/22 11:57 DLM (Rec: 06/28/22 13:45 DL [id number]) PT Summary Assessment and Plan Potential Rehabilitation Potential Good Status of Condition at Evaluation Evolving Summary Impairments Pain,ROM,Strength,Balance,Bed Mobility,Transfers,Gait, Activity Tolerance Assessment Summary Vivi is alert and willing to work with therapy. She reports having a lot of knee pain 9-10/10 pain this visit. She was able to ambulate in the room with the FWW and stay up in the recliner. Ice applied to the left knee after activity to assist with pain management. Pt performed about 5 reps of each TKA exercise due to pain this visit. She is anxious about moving and managing her pain. She moves slowly and needs reassurance during therapy. Her friend is supportive and plans to assist her at discharge. Will plan to see pt this afternoon for gait and stair training. Hope pt will be ready for discharge this afternoon after PT. Goals Bed Mobility Goal Standby Assistance Transfer Goal Standby Assistance,Front Wheeled Walker Gait Goal Standby Assistance,Front Wheel Walker Gait Distance 60 feet Other Goals Up and down 3-4 steps with two rails, CG assist Days to Meet Goals 2 Frequency of Treatment Frequency Of Treatment Twice a Day Treatment Plan Physical Therapy Treatment Plan Bed Mobility Training,Transfer Training,Gait Training, Therapeutic Exercise,Balance Retraining,Post Op Education, Discharge Planning,Hot or Cold Pack,Neuromuscular Re-ed Other Recommendations and Next Treatment stair training next visit as Focus tolerated by pain Precautions Other Precautions Hx PTSD and anxiety Weight Bearing Status Weight Bearing Status Weight Bear as Tolerated Recommendations To Nursing Amount of Assist Needed 1 Person Assist Discharge Recommendations PT Discharge Recommendations Home with Assistance,Home Health,Outpatient PT Other Discharge Recommendations Her friend plans to stay with her to help at discharge Equipment Needed for Home Before FWW, pt making arrangement to Discharge borrow one, she owns a 4WW Transportation Needs at Discharge Private Vehicle
[2022-06-28] MEDS: ACETAMINOPHEN 325 MG TABLET 650 MG PO ×2 (13:08→18:28)
[2022-06-28] MEDS: OXYCODONE IR 10 MG TABLET PO (13:58)
[2022-06-28] MEDS: ONDANSETRON 4 MG/2 ML INJ IV (13:58)
--- NOTE | 2022-06-28 14:02 | PC.NURSE ---
pt c/o nausea gave zofran. she had some lt knee pain and cramps, administered oxycodone.
--- NOTE | 2022-06-28 14:29 | PT.IPTN ---
Current Diagnoses Unilateral post-traumatic osteoarthritis, left knee (06/27/22) Pain in left knee (06/27/22) Surgery Performed Operation Date: 06/27/22 11:15 Actual Procedures p Total Knee Arthroplasty(Left) - Dona Bocanegra MD Physical Therapy Treatment Note M2 PT-IP Current Condition Start: 06/28/22 13:22 Freq: NEEDED Status: Active Protocol: Document 06/28/22 11:57 DLM (Rec: 06/28/22 13:45 DLM [id number]) Physical Therapy Current Condition Current Condition Evaluation Date 06/28/22 Treatment Diagnosis Left TKA, difficulty ambulating Onset Date 06/27/22 M3 PT-IP Subjective Start: 06/28/22 13:22 Freq: NEEDED Status: Active Protocol: Document 06/28/22 14:02 KS (Rec: 06/28/22 14:46 KS [id number]) Subjective Physical Therapy Visit Type Type Treatment Note Visit Start Time 14:02 Visit Stop Time 14:29 Total Visit Minutes 27 Number of MILK POWDER GRINDER Visits 1 Physical Therapy Visit Comments Patient Comments pt reporting mm spasms L quad Patient Goals discharge home with her friend to help M4 PT-IP Mobility and Gait Start: 06/28/22 13:22 Freq: NEEDED Status: Active Protocol: Document 06/28/22 14:02 KS (Rec: 06/28/22 14:46 KS [id number]) PT-Transfer Assessment Comments Mobility Comments Pt refused out of bed mobility multiple times this PM due to 8/10 pain and mm spasms in L quads. Feels there is no way for her to complete stair training this PM. RN arrived and adminstered pain meds. Pt performed 2x10 ankle pumps, quad sets, glute sets, and 1x5 SLR, unable to tolerate heel slides. C/o cont mm spasms following exercises. Required ice, repositioning, and multiple pillow to reach tolerable comfort. Left in bed w/ alarm on and friend present. Caregiver training scheduled for 10:15 tomorrow . Gait Assessment Comments Gait Comments Unwilling due to pain. Stair Climbing Assessment Comments Stair Climbing Comments Unwilling due to pain and spasms, will need to complete prior to d/c. M5 PT-IP Objective Assessments Start: 06/28/22 13:22 Freq: NEEDED Status: Active Protocol: Document 06/28/22 11:57 DLM (Rec: 06/28/22 13:45 [facility] [id number]) Orientation Orientation/Cognition Level of Alertness Alert Orientation Name,Age,Birthday,Month,Date, Year,Day of Week,Place, Situation Language Function Ability No Deficits Noted Safety Awareness Understands Safety Issues Memory Description No Deficits Noted Comments anxious, intermittent nausea with wretching but no vomiting at this time Gross Range of Motion Upper Extremity ROM Assessment Within Functional Limits Lower Extremity ROM Assessment Left Impaired Impairments knee pain limits ROM, lacking 20 degrees ext in supine, tolerates 85 degrees flexion sitting (AROM) Strength Upper Extremity Strength Assessment Within Functional Limits Lower Extremity Strength Assessment Left Impaired Hip able to lift LE off bed with difficulty and extensor lag Knee ext 2+/5 Ankle DF 4+/5 Comments Strength Comments pain left knee with all activity Coordination Assessment Gross Coordination Gross Coordination WNL Sensation Assessment Sensation Gross Sensation WNL Comments Sensation Comments minda wrap in place over left knee so not tested at this time Muscle Tone Muscle Tone WNL Yes M6 PT-IP Treatment Start: 06/28/22 13:22 Freq: NEEDED Status: Active Protocol: Document 06/28/22 14:02 KS (Rec: 06/28/22 14:46 KS [id number]) Physical Therapy Treatment Exercises Exercises Ankle Pumps,Gluteal Sets,Quad Sets,Heel Slides,Straight Leg Raises Education Education Provided Weight Bearing Status,Post-Op Packet,Safety Other Treatments Other Treatment Performed Her friend arrived this visit and observed therapy session, pt's service dog also present this visit M7 PT-IP Assessment and Plan Start: 06/28/22 13:22 Freq: NEEDED Status: Active Protocol: Document 06/28/22 14:02 KS (Rec: 06/28/22 14:46 KS [id number]) PT Summary Assessment and Plan Potential Rehabilitation Potential Good Summary Impairments Pain,ROM,Strength,Balance,Bed Mobility,Transfers,Gait, Activity Tolerance Progress Towards Goals Slow Progress due to Pain Assessment Summary Unable to progress gait or complete stair training due to pt reporting 8/10 pain and frequent mm spasms L quads. Able to complete LE exercises to promote blood flow and strengthening but c/o increased pain and spasms, needs encouragement to continue. Refused out of bed mobility. She has 3-4 KARINA w/ BHR she will need to complete prior to d/c. Caregiver training scheduled for 10:15 on 06/29. Goals Bed Mobility Goal Standby Assistance Transfer Goal Standby Assistance,Front Wheeled Walker Gait Goal Standby Assistance,Front Wheel Walker Gait Distance 60 feet Other Goals Up and down 3-4 steps with two rails, CG assist Days to Meet Goals 2 Frequency of Treatment Frequency Of Treatment Twice a Day Treatment Plan Physical Therapy Treatment Plan Bed Mobility Training,Transfer Training,Gait Training, Therapeutic Exercise,Balance Retraining,Post Op Education, Discharge Planning,Hot or Cold Pack,Neuromuscular Re-ed Other Recommendations and Next Treatment stair training next visit as Focus tolerated by pain Precautions Other Precautions Hx PTSD and anxiety Weight Bearing Status Weight Bearing Status Weight Bear as Tolerated Recommendations To Nursing Amount of Assist Needed 1 Person Assist Discharge Recommendations PT Discharge Recommendations Home with Assistance,Home Health,Outpatient PT Other Discharge Recommendations Her friend plans to stay with her to help at discharge Equipment Needed for Home Before FWW, pt making arrangement to Discharge borrow one, she owns a 4WW BSC - friend ordered Transportation Needs at Discharge Private Vehicle
[2022-06-28] MEDS: SERTRALINE 50 MG TABLET 150 MG PO (20:59)
[2022-06-28] MEDS: MELATONIN 3 MG TABLET PO (21:12)
[2022-06-29] MEDS: ACETAMINOPHEN 325 MG TABLET 650 MG PO ×2 (02:03→11:34)
--- NOTE | 2022-06-29 07:06 | P.DS_ITS ---
History of Present Illness History of Present Illness Date Patient Seen: 06/29/22 Time Patient Seen: 07:07 Chief complaint: Left TKA Narrative: Operative Date/Time/Diagnoses Date of procedure: 06/27/22 Time of procedure: 11:20 Pre-op diagnosis: left knee OA, retained hardware Post-op diagnosis: same Procedure & Clinicians Procedure: Left total knee arthroplasty, removal of retained internal fixation Same procedure as scheduled: Yes Indications: The patient has had progressively worsening left knee pain with radiographic changes consistent with arthritis. Non-operative management has failed and the patient has requested total knee replacement. The risks, benefits and alternatives to surgery were discussed with the patient prior to proceeding. Risks discussed included, but were not limited to, failure to relieve pain, stiffness, infection, nerve damage, deep venous thrombosis, pulmonary embolism, stroke, coma, heart attack, permanent paralysis and , as well as the potential need for eventual revision of the prosthetic. Surgeon: Dona Bocanegra Livestock Farmworker: Ken Heaton Anesthesia Type: General and Spinal Operative Notes Findings: Severe left knee arthritis, hardware removed without difficulty. Closure Type: primary Specimen(s): none sent Prosthetic devices, grafts, tissues, transplants, or devices: Bocanegra and Nephew [employer] BCS 2 size 4 femur, size 3 tibia, 35 by 7.5 mm patella, +10 poly Estimated Blood Loss (mL): 250 Blood products transfused: none Tourniquet time (min): 64 Discharge Providers Provider Date of admission: 06/28/22 14:11 Discharge Date: 06/29/22 Primary care physician: Doctor Ira MD Consults: 06/26/22 15:20 Consult to Anesthesiology Routine Comment: Consulting Provider: Anesthesiologist Reason for consultation: Regional block for post operative pain control 06/27/22 14:11 Consult to Discharge Planning Routine Comment: Consult to Physical Therapy Evaluate & Treat Comment: Physician Instructions: postop TKA protocol Consult to Respiratory Therapy Evaluate & Treat Comment: Physician Instructions: Evaluate and treat 06/27/22 15:49 Consult to [facility] [place] - Credit Review Officer Routine Comment: Discharge provider: Macrina Cardozo PA-C Summary Hospital Course Discharge Diagnosis: s/p LEFT total knee arthroplasty Hospital Course: Ms Peña'melecio hospital course was unremarkable. On POD# 2 she was feeling well and wanted to go home. She was eating and voiding without difficulty. Her pain was well-controlled w/ oral medication. She was evaluated by PT throughout her stay. Exam Vital Signs (past 8 hours): Oxygen Delivery Method Room Air Oxygen Flow Rate 0 Narrative Exam Narrative: 4/5 hip flexors, quadriceps, hamstrings; 5/5 DF, PF, EHL on the left. Sensation to light touch intact throughout leg. Calves soft, compressible, without palpable cords or masses. Aquacel dressing CDI. 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 Celiac disease (2021) Colon polyps COVID-19 virus infection Depression Easy bruisability Eczema GERD (gastroesophageal reflux disease) Hammer toe of right foot HLD (hyperlipidemia) Hypoglycemia IBS (irritable bowel syndrome) Melanoma Migraine headache Osteoarthritis Ovarian cancer Overactive bladder PTSD (post-traumatic stress disorder) Rabies exposure (06/2020) Right wrist fracture (05/2020) Sensitive skin Suicidal ideation Surgical History History of arthroplasty of right knee (08/10/20) History of bilateral breast implants History of bunionectomy of both great toes History of right oophorectomy Hx of bilateral cataract extraction Hx of left knee surgery Hx of tonsillectomy Social History household members: none Smoking Status: Never smoker alcohol intake: current Discharge Assessment & Plan Assessment and Plan Assessment: s/p LEFT total knee arthroplasty. Plan of Treatment: D/c home, possible home health based on results of PT caregiver training later this morning. Outpt PT. ASA 81 mg BID for VTE prophylaxis. Discharge Plan Discharge Plan Patient Disposition: Home Discharge orders & Medications Prescriptions: New oxycodone 5 mg Tablet 5 mg PO Q4-6H PRN (Reason: Pain, Moderate (4-6)) Qty: 60 0RF aspirin 81 mg Tablet,Delayed Release (Dr/Ec) 81 mg PO BID Qty: 90 0RF docusate sodium 100 mg Capsule 100 mg PO BID PRN (Reason: constipation) Qty: 60 2RF acetaminophen 325 mg Tablet 650 mg PO Q6HR Qty: 240 1RF Continued aspirin 81 mg tablet,delayed release (DR/EC) 81 mg PO Q OTHER DAY sertraline 100 mg Tablet 150 mg PO BEDTIME melatonin 3 mg Tablet 3 mg PO BEDTIME dicyclomine 10 mg Capsule 10 mg PO BID PRN (Reason: GI upset) atorvastatin 40 mg Tablet 40 mg PO DAILY omeprazole 40 mg Capsule,Delayed Release(Dr/Ec) 40 mg PO BID gabapentin 300 mg Capsule 600 mg PO TID propranolol 20 mg Tablet 20 mg PO BEDTIME fluticasone propionate 50 mcg/actuation [place],Suspension 1 spray INTRANASAL BID naproxen 500 mg Tablet 500 mg PO BID PRN (Reason: Pain) diclofenac sodium [Voltaren] 1 % Gel 2 g TOPICAL BID PRN (Reason: Pain) loratadine 10 mg Capsule 10 mg PO DAILY Myrbetriq 25 mg Tablet Extended Release 24 Hr 25 mg PO DAILY Label Comments: for bladder incontinence Asmanex HFA 200 mcg/actuation Hfa Aerosol Inhaler 1 puff INHALATION BID albuterol sulfate 90 mcg/actuation Hfa Aerosol Inhaler 2 puff INHALATION Q4-6H PRN (Reason: Shortness Of Breath) Follow up/Referrals: Doctor Roth MD [Primary Care Provider] - Dona Bocanegra MD [Physician] - As previously scheduled (Follow up w/ Dr Bocanegra on 07/12/2022 @ 2:00 pm at [facility].) Diet/Activity/Treatments Diet: Diet as Tolerated Activity: Walk frequently! Cold/Heat Therapy: Ice to knee as needed for pain. Skin/Wound/Dressing Care Report to your healthcare provider any signs of infection, such as:: chills, fever, night sweats, unusual drainage and unusual redness Dressing: May remove AMAURY wrap and shower. Leave Aquacel dressing in place until follow up appointment. No bathing or otherwise soaking incision. Visit Report/Discharge Packet Instructions: DI for Knee Replacement, DI for Prescription Opioid Use Stand Alone Forms: Surgery Discharge Discharge Data Primary Care Provider: Doctor Ira Attending Provider: Dona Bocanegra
[2022-06-29] MEDS: DOCUSATE 100 MG CAPSULE PO (08:29)
[2022-06-29] MEDS: HYDROMORPHONE 2 MG TABLET PO (08:29)
[2022-06-29] MEDS: LORATADINE 10 MG TABLET PO (08:29)
[2022-06-29] MEDS: PANTOPRAZOLE DR 40 MG TABLET PO (08:29)
[2022-06-29] MEDS: GABAPENTIN 300 MG CAPSULE 600 MG PO (08:29)
[2022-06-29] MEDS: ATORVASTATIN 20 MG TABLET 40 MG PO (08:29)
[2022-06-29] MEDS: ASPIRIN EC 81 MG TABLET PO (08:29)
[2022-06-29 08:30] VITALS: BP 143/56; PULSE 80; RESP 18; TEMP 36.1; O2SAT 95
[2022-06-29] MEDS: FLUTICASONE 120 SPRAY/16 GM SPRAY.SUSP NASAL (08:30)
[2022-06-29] MEDS: BUDESONIDE 0.5 MG/2 ML NEB INH (08:59)
--- NOTE | 2022-06-29 11:28 | PT.IPTN ---
Current Diagnoses Unilateral post-traumatic osteoarthritis, left knee (06/28/22) Pain in left knee (06/28/22) Presence of unspecified artificial knee joint (06/28/22) Surgery Performed Operation Date: 06/27/22 11:15 Actual Procedures p Total Knee Arthroplasty(Left) - Dona Bocanegra MD Physical Therapy Treatment Note M2 PT-IP Current Condition Start: 06/28/22 13:22 Freq: NEEDED Status: Discharge Protocol: Document 06/28/22 11:57 DLM (Rec: 06/28/22 13:45 DLM [id number]) Physical Therapy Current Condition Current Condition Evaluation Date 06/28/22 Treatment Diagnosis Left TKA, difficulty ambulating Onset Date 06/27/22 M3 PT-IP Subjective Start: 06/28/22 13:22 Freq: NEEDED Status: Discharge Protocol: Document 06/29/22 10:40 KS (Rec: 06/29/22 13:48 KS [id number]) Subjective Physical Therapy Visit Type Type Treatment Note Visit Start Time 10:40 Visit Stop Time 11:28 Total Visit Minutes 48 Notes Pts friend present for caregiver traning Number of [employer] Visits 2 Physical Therapy Visit Comments Patient Comments Pt feeling better and agreeable to stair training Patient Goals discharge home with her friend to help M4 PT-IP Mobility and Gait Start: 06/28/22 13:22 Freq: NEEDED Status: Discharge Protocol: Document 06/29/22 10:40 KS (Rec: 06/29/22 13:48 KS [id number]) PT-Bed Mobility Assessment Supine to Sit Supine to Sit Standby Assistance Sit to Supine Sit to Supine Minimal Assistance Scooting Scooting to Edge of Bed Independent PT-Transfer Assessment Sit to and From Stand Sit to and from Stand Contact Guard Assistance,1 Person Assistance,Use of Upper Extremities Equipment Transfer Assistive Device Gait Belt,Front Wheeled Walker Transfers Transfer Destination Bed,Wheelchair Transfer Technique pt ambulated w/ FWW Transfer Ability Level of Assist Contact Guard Assistance,Use of Upper Extremities Comments Mobility Comments Pt in bed w/ friend in room for caregiver training. Pt able to use gaitbelt to self assist LLE out of bed for sup< >sit. Demonstrated gait belt application and guarding to pts friend who was able to provide assist throughout treatment. Pt sit<>stand CGA and ambulated to w/c in hallway. transported pt to practice stairs in w/c for energy conservation. Pt ascended/descended 3 steps w/ BHR and step to pattern w/ CGA and cues for sequencing provided by her friend. Pt w/c back to room but ambulated remaining 20 ft w/ FWW. Returned to bed w/ Min A for LE guidance. Reveiwed exercises and safety and pt has no further questions and feels safe to return home w/ friend assisting. Gait Assessment Gait Gait Assistance Required: Contact Guard Assist,1 Person Assist Distance (Feet) 20 Able to Maintain Weight Bearing Status Yes During Gait Assistive Devices Assistive Device Gait Belt,Front Wheeled Walker Gait Deviations General Gait Pattern Antalgic,Decreased Stride Length,Flexed Trunk Factors Limiting Gait Function Factors Limiting Gait Function Decreased Activity Tolerance, Decreased Strength,Limited Range of Motion,Pain,Poor Balance Comments Gait Comments Increased tolerance but still limited by pain and weakness. Proper use of FWW. Stair Climbing Assessment Evaluation Level of Assist On Stairs Contact Guard Assistance,1 Person Assistance Devices Stair Climbing Assistive Devices Left Railing,Right Railing Technique/Endurance Stair Climbing Direction Ascend and Descend Stair Climbing Technique Step to Step Number of Steps Climbed 3 Stair Climbing Set # Repetitions (reps) 1 Comments Stair Climbing Comments Pts friend able to provide CGA to pt on stairs. She ascended /descended 3 steps w/ BHR and step to pattern w/ cues for leg sequencing. Reported mild lightheadedness, but remained alert and conversational throughout. PT-Balance Assessment Sitting Balance and Reactions Static Sitting Balance Ability Normal Dynamic Sitting Balance Ability Normal Standing Balance and Reactions Static Standing Balance Ability Good Dynamic Standing Balance Ability Fair Device Used FWW M5 PT-IP Objective Assessments Start: 06/28/22 13:22 Freq: NEEDED Status: Discharge Protocol: Document 06/28/22 11:57 DL (Rec: 06/28/22 13:45 [facility] [id number]) Orientation Orientation/Cognition Level of Alertness Alert Orientation Name,Age,Birthday,Month,Date, Year,Day of Week,Place, Situation Language Function Ability No Deficits Noted Safety Awareness Understands Safety Issues Memory Description No Deficits Noted Comments anxious, intermittent nausea with wretching but no vomiting at this time Gross Range of Motion Upper Extremity ROM Assessment Within Functional Limits Lower Extremity ROM Assessment Left Impaired Impairments knee pain limits ROM, lacking 20 degrees ext in supine, tolerates 85 degrees flexion sitting (AROM) Strength Upper Extremity Strength Assessment Within Functional Limits Lower Extremity Strength Assessment Left Impaired Hip able to lift LE off bed with difficulty and extensor lag Knee ext 2+/5 Ankle DF 4+/5 Comments Strength Comments pain left knee with all activity Coordination Assessment Gross Coordination Gross Coordination WNL Sensation Assessment Sensation Gross Sensation WNL Comments Sensation Comments minda wrap in place over left knee so not tested at this time Muscle Tone Muscle Tone WNL Yes M6 PT-IP Treatment Start: 06/28/22 13:22 Freq: NEEDED Status: Discharge Protocol: Document 06/29/22 10:40 KS (Rec: 06/29/22 13:48 KS [id number]) Physical Therapy Treatment Exercises Exercises Ankle Pumps,Gluteal Sets,Quad Sets,Heel Slides,Straight Leg Raises Education Education Provided Weight Bearing Status,Post-Op Packet,Safety Other Treatments Other Treatment Performed Completed caregiver training w / pts friend. M7 PT-IP Assessment and Plan Start: 06/28/22 13:22 Freq: NEEDED Status: Discharge Protocol: Document 06/29/22 10:40 KS (Rec: 06/29/22 13:48 KS [id number]) PT Summary Assessment and Plan Potential Rehabilitation Potential Good Summary Impairments Pain,ROM,Strength,Balance,Bed Mobility,Transfers,Gait, Activity Tolerance Progress Towards Goals Progressing Toward Goals Assessment Summary Pt able to improve bed mobility, ambulation, and complete stair training this AM w/ friend assisting her. She requires CGA and cues for mobility. Friend feels able to help her at home and pt feels safe and capable of returning home. She will benefit from OPPT to improve strength, stability, and ROM. Goals Bed Mobility Goal Standby Assistance Transfer Goal Standby Assistance,Front Wheeled Walker Gait Goal Standby Assistance,Front Wheel Walker Gait Distance 60 feet Other Goals Up and down 3-4 steps with two rails, CG assist Days to Meet Goals 2 Frequency of Treatment Frequency Of Treatment Twice a Day Treatment Plan Physical Therapy Treatment Plan Bed Mobility Training,Transfer Training,Gait Training, Therapeutic Exercise,Balance Retraining,Post Op Education, Discharge Planning,Hot or Cold Pack,Neuromuscular Re-ed Precautions Other Precautions Hx PTSD and anxiety Weight Bearing Status Weight Bearing Status Weight Bear as Tolerated Recommendations To Nursing Amount of Assist Needed 1 Person Assist Discharge Recommendations PT Discharge Recommendations Home with Assistance, Outpatient PT Other Discharge Recommendations Her friend plans to stay with her to help at discharge Equipment Needed for Home Before FWW, pt making arrangement to Discharge borrow one, she owns a 4WW BSC - friend ordered Transportation Needs at Discharge Private Vehicle
[2022-06-29] MEDS: OXYCODONE IR 5 MG TABLET PO (11:34)
--- NOTE | 2022-06-29 11:38 | CM.DPC ---
DCP Cont: Per PT, pt can go home with outpatient PT therapy. Pt to discharge home today via POV. No other needs. Obdulia Spears RN/DCP
== END 2022-06-29 13:18 | disposition home or self-care (01) ==
LOC: OR 14:49 → AC 14:49
PROVIDERS: Admitting Provider Orthopaedic Surgery; Referring Provider Orthopaedic Surgery; Visit Provider Orthopaedic Surgery
PROC: 0SRD0JZ Replacement of Left Knee Joint with Synthetic Substitute, Open Approach (ICD-10-PCS; CPT 27447; principal; 2022-06-27 11:15)
DX: M17.12 Unilateral primary osteoarthritis, left knee (principal); Z45.89 Encounter for adjustment and management of other implanted devices; J45.909 Unspecified asthma, uncomplicated; K21.9 Gastro-esophageal reflux disease without esophagitis; F41.9 Anxiety disorder, unspecified
CPT/HCPCS: 27447; 36415; 73560; 85014; 85018; 94640; 97110; 97116; 97162; 97530; C1776; G0378; C1713; C9290; J0171; J0690; J1100; J1170; J2250; J2405; J2704; J3010

== ENCOUNTER → 2022-12-06 12:10 | Outpatient (CLI) | payer OTHER, SELFPAY ==
[2022-06-27 15:39] VITALS: BMI 27.3
--- NOTE | 2022-12-06 | DI.MRI.S_ITS ---
PROCEDURE: MR HEAD/BRAIN WO CON INDICATIONS: DIZZINESS TECHNIQUE: Noncontrast axial T1 spin echo, axial T2 fast spin echo, sagittal and axial FLAIR, coronal T2 fast spin echo, axial gradient echo, axial diffusion and ADC through the brain. COMPARISON: None. FINDINGS: Image quality: Excellent. CSF Spaces: Basal cisterns are patent. No extra-axial fluid collections. Ventricles are normal in size and shape. Brain: Punctate 2 mm focus of restricted diffusion associated edema on the in the right lentiform nucleus consistent with subacute lacunar infarct. No mass effect, blood products or midline shift. Underlying atrophy and multifocal white matter chronic ischemic change present. Skull and face: Calvarium has normal marrow signal. Orbits appear normal. Bilateral intraocular lens replacements noted. Sinuses: Sinuses and mastoids are clear. IMPRESSION: 1. Probable late subacute right basal ganglia lacunar 2 mm infarct. No mass effect or midline shift. No intracranial hemorrhage. 2. Atrophy and chronic ischemic change intracranial hemorrhage or mass effect Approved by: Leroy Lucas M.D. on 12/06/2022 at 15:44
== END ==
PROVIDERS: Referring Provider Nurse Practitioner Gerontology; Visit Provider Nurse Practitioner Gerontology
DX: R51.9 Headache, unspecified (principal); R42 Dizziness and giddiness
CPT/HCPCS: 70551

== ENCOUNTER 2022-12-08 16:29 | Emergency (ER) | payer OTHER, SELFPAY ==
[2022-06-27 15:39] VITALS: BMI 27.3
[2022-12-08] VITALS (10 sets, daily range): BP systolic 144–166; BP diastolic 66–84; PULSE 66–78; RESP 20–31; TEMP 36.8; O2SAT 97–99; BMI 28.2
[2022-12-08 18:34] LABS: Add Manual Diff / Slide Review NO; Basophils Absolute Auto 100 /uL (0-100); Basophils Percent Auto 0.9 % (0-2); Eosinophils Absolute Auto 300 /uL (0-450); Eosinophils Percent Auto 4.2 % (2-4); Hematocrit 38.6 % (36-46); Hemoglobin 13.1 g/dL (12.0-16.0); Lymphocytes Absolute Auto 2000 /uL (1100-4500); Lymphocytes Percent Auto 30.8 % (25-40); Mean Corpuscular HGB Conc 33.9 % (30-36); Mean Corpuscular Hemoglobin 30.1 PG (26-34); Mean Corpuscular Volume 88.8 fL (80-100); Monocytes Absolute Auto 400 /uL (0-900); Monocytes Percent Auto 5.5 % (3-14); Neutrophils Absolute Auto 3800 /uL (1500-7000); Neutrophils Percent Auto 58.6 % (50-75); Platelet Count 200 X10^3/uL (150-400); Red Blood Cell Count 4.35 X10^6/uL (4.0-5.2); Red Cell Distribution Width 13.6 % (11.6-14.8); White Blood Cell Count 6.5 X10^3/uL (4.5-11.0)
[2022-12-08 18:53] LABS: Alanine Aminotransferase 26 IU/L (<35); Albumin 4.6 g/dL (3.5-5.0); Albumin Globulin Ratio 1.4 (1.0-2.8); Alkaline Phosphatase 100 U/L (38-126); Aspartate Aminotransferase 29 IU/L (14-36); BUN Creatinine Ratio 30.2 (6-22); Bilirubin Total 0.5 mg/dL (0.2-1.3); Blood Urea Nitrogen 13 mg/dL (7-17); Calcium 9.1 mg/dL (8.4-10.2); Carbon Dioxide 27 mmol/L (22-32); Chloride 101 mmol/L (98-107); Estimated Glomerular Filt Rate > 60 mL/min (>60); Globulin 3.2 g/dL (1.7-4.1); Glucose 106 mg/dL (80-110); HEMOLYSIS 21 (0-50); Lipase 42 U/L (23-300); Potassium 3.8 mmol/L (3.4-5.1); Sodium 138 mmol/L (137-145); Total Protein 7.8 g/dL (6.3-8.2)
--- NOTE | 2022-12-08 19:02 | ED_ITS ---
HPI - Headache General Chief Complaint: Headache Stated Complaint: Headaches Time Seen by Provider: 12/08/22 19:01 Mode of arrival: Family Vehicle History of Present Illness HPI Narrative: Patient is a 72-year-old female with history of chronic migraines presenting today with headache. She had an outpatient MRI 2 days ago here for her worsening headaches. MRI reports that she had a late subacute stroke in basilar lacunar area. She reports that this week she is been a little balance she reports that she is had some slurring of words not feel couple of weeks. She says that her migraines have picked up and become more frequent over the last 6 weeks which is why she got an outpatient MRI. She was at the pharmacy today trying to get medication and telling pharmacist about her symptoms it was recommended that she talked to a triage nurse who recommended that she come to the ED. She is quite sensitive to light she says this is not the worst headache she is ever had but it is pretty bad. She has not taken much for it she feels nauseous she is not having vomiting. She denies numbness tingling or weakness. No chest pain or shortness of breath. No fever chills or other symptoms. She reports that she is completely disabled that she has a caregiver with her but not 247 she has a support dog with her as well. She walks with a cane. Related Data Home Medications Medication Instructions Recorded Confirmed albuterol sulfate 90 mcg/actuation 2 puff inhalation Q4-6H PRN 07/27/20 06/27/22 aerosol inhaler Shortness Of Breath atorvastatin 40 mg tablet 40 mg PO DAILY 07/27/20 06/27/22 diclofenac sodium 1 % topical gel 2 g topical BID PRN Pain 07/27/20 06/27/22 (Voltaren) fluticasone propionate 50 1 spray intranasal BID 07/27/20 06/27/22 mcg/actuation nasal spray,suspension gabapentin 300 mg capsule 600 mg PO TID 07/27/20 06/27/22 loratadine 10 mg capsule 10 mg PO DAILY 07/27/20 06/27/22 mirabegron 25 mg tablet,extended 25 mg PO DAILY 07/27/20 06/27/22 release 24 hr (Myrbetriq) mometasone 200 mcg/actuation HFA 1 puff inhalation BID 07/27/20 06/27/22 aerosol inhaler (Asmanex HFA) naproxen 500 mg tablet 500 mg PO BID PRN Pain 07/27/20 06/27/22 omeprazole 40 mg capsule,delayed 40 mg PO BID 07/27/20 06/27/22 release propranolol 20 mg tablet 20 mg PO BEDTIME 07/27/20 06/27/22 aspirin 81 mg tablet,delayed 81 mg PO Q OTHER DAY 06/14/22 06/27/22 release dicyclomine 10 mg capsule 10 mg PO BID PRN GI upset 06/15/22 06/27/22 melatonin 3 mg tablet 3 mg PO BEDTIME 06/15/22 06/27/22 sertraline 100 mg tablet 150 mg PO BEDTIME 06/15/22 06/27/22 Previous Rx's Medication Instructions Recorded acetaminophen 325 mg tablet 650 mg PO Q6HR #240 tabs 06/29/22 aspirin 81 mg tablet,delayed 81 mg PO BID #90 tabs 06/29/22 release docusate sodium 100 mg capsule 100 mg PO BID PRN constipation #60 06/29/22 caps oxycodone 5 mg tablet 5 mg PO Q4-6H PRN Pain, Moderate 06/29/22 (4-6) #60 tabs Allergies Allergy/AdvReac Type Severity Reaction Status Date / Time almond Allergy Severe Tongue, Verified 12/08/22 16:45 throat swelling banana Allergy Severe Throat Verified 12/08/22 16:45 closes shrimp Allergy Severe Throat Verified 12/08/22 16:45 closes latex Allergy Intermediate Rash Verified 12/08/22 16:45 iodine Allergy Mild Rash - Verified 12/08/22 16:45 Topical only neoprene Allergy Intermediate Rash Uncoded 12/08/22 16:45 Review of Systems Review of Systems ROS Unobtainable: All systems reviewed & are unremarkable except as noted in HPI and below Patient History Medical History Allergic rhinitis Anxiety Asthma Back pain 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 Celiac disease (2021) Colon polyps COVID-19 virus infection Depression Easy bruisability Eczema GERD (gastroesophageal reflux disease) Hammer toe of right foot HLD (hyperlipidemia) Hypoglycemia IBS (irritable bowel syndrome) Melanoma Migraine headache Osteoarthritis Ovarian cancer Overactive bladder PTSD (post-traumatic stress disorder) Rabies exposure (06/2020) Right wrist fracture (05/2020) Sensitive skin Suicidal ideation Surgical History History of arthroplasty of right knee (08/10/20) History of bilateral breast implants History of bunionectomy of both great toes History of right oophorectomy Hx of bilateral cataract extraction Hx of left knee surgery Hx of tonsillectomy Social History household members: none Smoking Status: Never smoker alcohol intake: current Smoking Status: Never smoker alcohol intake frequency: a few times a week Substance Use Type: marijuana Exam Initial Vital Signs Initial Vital Signs: Vital Signs Temperature 98.2 F 12/08/22 16:36 Pulse Rate 70 12/08/22 16:36 Respiratory Rate 20 12/08/22 16:36 Blood Pressure 144/67 H 12/08/22 16:36 Pulse Oximetry 99 12/08/22 16:36 Oxygen Delivery Method 12/08/22 16:36 GENERAL: Alert pleasant 72-year-old female obviously sensitive to the small amount of light in the room HEENT: Head atraumatic,EOMI, pupils reactive, face symmetric, moist mucous membranes, neck supple CARDIOVASCULAR: Regular rate and rhythm without murmurs, rubs or gallops. RESPIRATORY: Breath sounds equal bilaterally, no wheezes rales or rhonchi. ABDOMEN: Soft, nontender. Normoactive bowel sounds all 4 quadrants. No guarding or rebound. EXTREMITIES: Normal range of motion, no clubbing or edema. Neurovascularly intact NEUROLOGICAL: Alert and oriented x4.Normal gait and speech. Cranial nerves II through XII grossly intact. Good diurfm-oo-fiyo, good yrgw-ur-ohed, strength equal bilaterally, no dysarthria or aphasia, sensation in tact to soft touch bogdan aterally, no visual changes, no facial droop SKIN: Warm, dry, no laceration, no petechiae, no rashes or lesions. Course Orders Ordered: ED Orders 12/08/22 18:18 Complete Blood Count AUTO DIFF Stat Comprehensive Metabolic Panel Stat Lipase Stat 12/08/22 20:48 CT head/brain wo con Stat Discontinued Medications Diphenhydramine HCl (Diphenhydramine 50 Mg/Ml Vial) 50 mg IV NOW ONE Stop: 12/08/22 20:49 Last Admin: 12/08/22 21:07 Dose: 50 mg Documented By: BARRIE Sodium Chloride (Normal Saline 0.9%) 1,000 mls @ 1,000 mls/hr IV BOLUS ONE Stop: 12/08/22 21:47 Last Infusion: 12/08/22 22:03 Dose: 0 mls/hr Documented By: Admin: 12/08/22 21:07 Dose: 1,000 mls/hr Documented By: BARRIE Ketorolac Tromethamine (Ketorolac 30 Mg/Ml Vial) 15 mg IV NOW ONE Stop: 12/08/22 19:58 Last Admin: 12/08/22 20:11 Dose: 15 mg Documented By: BARRIE Ondansetron HCl (Ondansetron 4 Mg/2 Ml Inj) 4 mg IV NOW PRN PRN Reason: Nausea And Vomiting Last Admin: 12/08/22 20:12 Dose: 4 mg Documented By: BARRIE Vital Signs Vital signs: Vital Signs - 8 hr 12/08/22 16:36 12/08/22 17:57 12/08/22 17:58 Temperature 98.2 F Pulse Rate 70 68 Respiratory Rate 20 Blood Pressure 144/67 H 147/66 H Pulse Oximetry 99 97 Oxygen Delivery Method Room Air 12/08/22 17:58 12/08/22 18:00 12/08/22 18:00 Temperature Pulse Rate 67 66 Respiratory Rate Blood Pressure 152/75 H Pulse Oximetry 99 99 Oxygen Delivery Method 12/08/22 20:05 12/08/22 20:06 12/08/22 20:06 Temperature Pulse Rate 71 71 Respiratory Rate Blood Pressure 166/84 H Pulse Oximetry 99 99 Oxygen Delivery Method 12/08/22 20:30 12/08/22 20:30 12/08/22 21:03 Temperature Pulse Rate 71 74 Respiratory Rate Blood Pressure 151/75 H Pulse Oximetry 98 98 Oxygen Delivery Method 12/08/22 21:30 12/08/22 22:00 Temperature Pulse Rate 72 78 Respiratory Rate 26 H 31 H Blood Pressure Pulse Oximetry 98 97 Oxygen Delivery Method MDM - Headache Lab Data 12/08/22 18:18 12/08/22 18:18 Labs: Lab Results 12/08/22 12/08/22 Range/Units 18:18 18:18 WBC 6.5 (4.5-11.0) X10^3/uL RBC 4.35 (4.0-5.2) X10^6/uL Hgb 13.1 (12.0-16.0) g/dL Hct 38.6 (36-46) % MCV 88.8 (80-100) fL MCH 30.1 (26-34) PG MCHC 33.9 (30-36) % RDW 13.6 (11.6-14.8) % Plt Count 200 (150-400) X10^3/uL Neut % (Auto) 58.6 (50-75) % Lymph % (Auto) 30.8 (25-40) % [place] % (Auto) 5.5 (3-14) % Eos % (Auto) 4.2 H (2-4) % Baso % (Auto) 0.9 (0-2) % Neut # (Auto) 3800 (5935-0435) /uL Lymph # (Auto) 2000 (4148-4315) /uL [place] # (Auto) 400 (0-900) /uL Eos # (Auto) 300 (0-450) /uL Baso # (Auto) 100 (0-100) /uL Sodium 138 (137-145) mmol/L Potassium 3.8 (3.4-5.1) mmol/L Chloride 101 (98-107) mmol/L Carbon Dioxide 27 (22-32) mmol/L BUN 13 (7-17) mg/dL Creatinine 0.43 L (0.52-1.04) mg/dL Estimated GFR > 60 (>60) mL/min BUN/Creatinine Ratio 30.2 H (6-22) Glucose 106 (80-110) mg/dL Calcium 9.1 (8.4-10.2) mg/dL Total Bilirubin 0.5 (0.2-1.3) mg/dL AST 29 (14-36) IU/L ALT 26 (<35) IU/L Alkaline Phosphatase 100 (38-126) U/L Total Protein 7.8 (6.3-8.2) g/dL Albumin 4.6 (3.5-5.0) g/dL Globulin 3.2 (1.7-4.1) g/dL Albumin/Globulin Ratio 1.4 (1.0-2.8) Lipase 42 (23-300) U/L Urine Dip Bedside Urine Glucose Negative Bedside Urine Bilirubin - Negative Bedside Urine Ketone - Negative Urine Specific [place] 1.015 Bedside Urine Occult Blood - Negative Bedside Urine pH 7.0 Bedside Urine Protein - Negative Bedside Urine Urobilinogen - Negative Bedside Urine Nitrite - Negative Bedside Urine Leukocytes - Negative Esterase Imaging Data MR head: Radiologist's Impression: Larry BRIANA [id number] Magnetic Resonance Report Signed Patient: Vivi Rowe MR#: [id number] : 1950 Acct:[id number] Age/Sex: 72 / F Date of Service: 12/06/22 Loc: MRI Accession Number: [id number] ?? Procedure: MR head/brain wo con Ordering Provider: Doctor DEV Roth PROCEDURE:? MR HEAD/BRAIN WO CON ? INDICATIONS:? DIZZINESS ? TECHNIQUE:? Noncontrast axial T1 spin echo, axial T2 fast spin echo, sagittal and axial FLAIR, coronal T2 fast spin echo, axial gradient echo, axial diffusion and ADC through the brain.? ? COMPARISON:? None. ? FINDINGS:? Image quality:? Excellent.? ? CSF Spaces:? Basal cisterns are patent.? No extra-axial fluid collections.? Ventricles are normal in size and shape.? ? Brain:? Punctate 2 mm focus of restricted diffusion associated edema on the in the right lentiform nucleus consistent with subacute lacunar infarct.? No mass effect, blood products or midline shift.? Underlying atrophy and multifocal white matter chronic ischemic change present.? ? Skull and face:? Calvarium has normal marrow signal.? Orbits appear normal.? Bilateral intraocular lens replacements noted.? ? Sinuses:? Sinuses and mastoids are clear.? ? IMPRESSION:? ? 1. Probable late subacute right basal ganglia lacunar 2 mm infarct.? No mass effect or midline shift.? No intracranial hemorrhage. ? 2. Atrophy and chronic ischemic change intracranial hemorrhage or mass effect ? ? Approved by: Leroy Lucas M.D. on 12/06/2022 at 15:44? ECG Data Interpretation: Normal sinus rhythm rate 64 TN interval 150 QRS [address] changes no T- wave inversions MDM Narrative Medical decision making narrative: Patient is a 72-year-old female history of celiac disease chronic migraine presenting with worsening headache. She would an outpatient MRI done 2 days ago which does show late subacute stroke. This week she did have some difficulty walking she reports that she is had some slurring of speech off and on about a month. The symptoms may be cause her stroke. However she is having worsening headache. She is given Toradol Zofran and Benadryl in the ED which seemed to help. She is a negative head CT today. She is not having any focal deficits she has not NIH stroke scale of 0. She has typical migraine like symptoms, with light sensitivity. Blood work today is overall reassuring without significant electrolyte abnormality renal failure or anemia and EKG are also negative. At this time we did discuss how results of MRI and ED workup. Sounds as though she has a PCP who was falling her at the [place] she would not yet received results of her MRI. We discussed how taking aspirin can help prevent stroke. She will also need further outpatient workup including carotid Doppler and echocardiogram along with further cholesterol testing and others. We discussed signs and symptoms of stroke and when to return to the ED. All questions have been addressed Discharge Plan Departure Patient Disposition: Home Clinical Impression: Migraine, CVA (cerebral vascular accident) Instructions: DI for Migraine, DI for Stroke-Ischemic Activity Restrictions/Additional Instructions: *You have been diagnosed with migraine headache and stroke *What to do: At this time her MRI does show that you had a late subacute stroke so I suspect you probably had a stroke within the last 7-10 days. Which may be causing some of your symptoms. You will need to talk to your primary care provider about further testing such as echocardiogram, and carotid Dopplers *Continue to take medications as directed Aspirin 325 mg daily *Follow up with your primary care provider in 2-3 days or call [phone] *Return to ER if you should have increased difficulty walking slurring of speech weakness worsening headaches or any new, worsening or concerning symptoms Prescriptions: No Action aspirin 81 mg tablet,delayed release (DR/EC) 81 mg PO Q OTHER DAY sertraline 100 mg Tablet 150 mg PO BEDTIME melatonin 3 mg Tablet 3 mg PO BEDTIME dicyclomine 10 mg Capsule 10 mg PO BID PRN (Reason: GI upset) acetaminophen 325 mg Tablet 650 mg PO Q6HR Qty: 240 1RF aspirin 81 mg Tablet,Delayed Release (Dr/Ec) 81 mg PO BID Qty: 90 0RF docusate sodium 100 mg Capsule 100 mg PO BID PRN (Reason: constipation) Qty: 60 2RF oxycodone 5 mg Tablet 5 mg PO Q4-6H PRN (Reason: Pain, Moderate (4-6)) Qty: 60 0RF atorvastatin 40 mg Tablet 40 mg PO DAILY omeprazole 40 mg Capsule,Delayed Release(Dr/Ec) 40 mg PO BID gabapentin 300 mg Capsule 600 mg PO TID propranolol 20 mg Tablet 20 mg PO BEDTIME fluticasone propionate 50 mcg/actuation [place],Suspension 1 spray INTRANASAL BID naproxen 500 mg Tablet 500 mg PO BID PRN (Reason: Pain) diclofenac sodium [Voltaren] 1 % Gel 2 g TOPICAL BID PRN (Reason: Pain) loratadine 10 mg Capsule 10 mg PO DAILY Myrbetriq 25 mg Tablet Extended Release 24 Hr 25 mg PO DAILY Label Comments: for bladder incontinence Asmanex HFA 200 mcg/actuation Hfa Aerosol Inhaler 1 puff INHALATION BID albuterol sulfate 90 mcg/actuation Hfa Aerosol Inhaler 2 puff INHALATION Q4-6H PRN (Reason: Shortness Of Breath) Referrals: Miscellaneous,Doctor, MD [Primary Care Provider] - Stand Alone Forms: Patient Portal/API
[2022-12-08] MEDS: KETOROLAC 30 MG/ML VIAL 15 MG IV (20:11)
[2022-12-08] MEDS: ONDANSETRON 4 MG/2 ML INJ IV (20:12)
--- NOTE | 2022-12-08 20:48 | DI.CT.S_ITS ---
PROCEDURE: CT HEAD/BRAIN WO CON INDICATIONS: NAVARRETE with recent cva TECHNIQUE: Noncontrast 4.5 mm thick angled axial sections acquired from the foramen magnum to the vertex, with coronal and sagittal reformats. For radiation dose reduction, the following was used: automated exposure control, adjustment of mA and/or kV according to patient size. COMPARISON: None. FINDINGS: Image quality: Excellent. CSF spaces: Basal cisterns are patent. No extra-axial fluid collections. Ventricles are normal in size and shape. Brain: No intracranial hemorrhage, mass, or mass effect. Sheth-white matter interface appears preserved. Skull and face: Calvarium and visualized facial bones appear intact, without suspicious lesions. Sinuses: Visualized sinuses and mastoids are clear. IMPRESSION: 1. No acute intracranial abnormality. Dictated by: Jermaine Gtz M.D. on 12/08/2022 at 21:12 Approved by: Jermaine Gtz M.D. on 12/08/2022 at 21:14
[2022-12-08] MEDS: SODIUM CHLORIDE 0.9% 1,000 ML 1000 ML IV (21:07)
[2022-12-08] MEDS: diphenhydrAMINE 50 MG/ML VIAL IV (21:07)
== END 2022-12-08 22:40 | disposition home or self-care (01) ==
PROVIDERS: Emergency Provider Emergency Medicine
DX: G43.919 Migraine, unspecified, intractable, without status migrainosus (principal); I63.9 Cerebral infarction, unspecified; R29.700 NIHSS score 0
CPT/HCPCS: 36415; 70450; 80053; 81003; 83690; 85025; 93005; 96361; 96374; 96375; 99284; J1200; J1885; J2405

== ENCOUNTER 2023-04-03 15:22 | Emergency (ER) | payer OTHER, SELFPAY ==
[2022-06-27 15:39] VITALS: BMI 27.3
[2023-04-03] VITALS (12 sets, daily range): BP systolic 130–184; BP diastolic 56–74; PULSE 69–76; RESP 16–19; TEMP 37.1; O2SAT 93–99; BMI 29.0
--- NOTE | 2023-04-03 15:58 | DI.RAD.S_ITS ---
PROCEDURE: XR CHEST 1V INDICATIONS: Possible stroke TECHNIQUE: One view of the chest was acquired. COMPARISON: None. FINDINGS: Surgical changes and devices: None. Lungs and pleura: Lungs are clear. No pleural effusions or pneumothorax. Mediastinum: Mediastinal contours appear normal. Heart size is normal. Bones and chest wall: No suspicious bony lesions. Overlying soft tissues appear unremarkable. IMPRESSION: No acute cardiopulmonary disease process. Dictated by: Claire Sarkar MD, PhD on 04/03/2023 at 16:45 Approved by: Claire Sarkar MD, PhD on 04/03/2023 at 16:46
--- NOTE | 2023-04-03 16:04 | DI.CT.S_ITS ---
PROCEDURE: CT ANGIO HEAD AND NECK INDICATIONS: Neurologic deficit TECHNIQUE: Pre-contrast 4.5 mm thick sections acquired from the foramen magnum to the vertex. After the administration of intravenous contrast, 1 mm thick sections acquired from the aortic arch through the [place] of [place]. Post-contrast 4.5 mm thick sections then re-acquired from the foramen magnum to the vertex. MIP reformats of the arterial vasculature were utilized. For radiation dose reduction, the following was used: automated exposure control, adjustment of mA and/or kV according to patient size. COMPARISON: None. FINDINGS: Image quality: Excellent. BRAIN: CSF spaces: Ventricles are normal in size and shape. Basal cisterns are patent. No extra-axial fluid collections. Brain: No midline shift. No intracranial bleeds or masses. Sheth-white matter interface appears intact. Skull and face: Calvarium and facial bones appear intact, without suspicious lesions. Orbits appear normal. Incidental hyperostosis frontalis interna noted. Sinuses: Sinuses and mastoids are clear. HEAD CT ANGIOGRAPHY: Anterior circulation: Intracranial internal carotid arteries are normal in size and flow. The flow within the paired anterior cerebral arteries is normal and symmetric. The flow within the middle cerebral arteries is normal and symmetric. The anterior communicating artery is seen. No aneurysms are seen. Posterior circulation: Visualized portions of the vertebral arteries demonstrate normal caliber, and join to form a normal appearing basilar artery. 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 The P2 segment is supplied by a widely patent posterior communicating artery. Remainder of the distal vasculature unremarkable. No aneurysms are seen. NECK CT ANGIOGRAPHY: Carotid system: The great vessels demonstrate a conventional anatomy as they arise from the aortic arch. The origins of the common carotid arteries appear patent. The common carotid arteries demonstrate normal caliber and courses. The bifurcation regions are both widely patent. The internal carotid arteries demonstrate normal calibers and courses. Posterior circulation: The origins of the vertebral arteries both appear widely patent. The more superior extracranial portions of both vertebral arteries also demonstrate normal courses and calibers. They join to form a normal appearing basilar artery. Soft tissues: Visualized neck soft tissues demonstrate no suspicious abnormalities. Bones: No suspicious bony lesions. Visualized cervical spine appears normally aligned. 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 Approved by: Leroy Lucas M.D. on 04/03/2023 at 17:10
[2023-04-03] MEDS: methylPREDNISolone 125 MG/2 ML VIAL IV (16:26)
[2023-04-03] MEDS: diphenhydrAMINE 50 MG/ML VIAL 25 MG IV (16:26)
[2023-04-03 16:50] LABS: Add Manual Diff / Slide Review NO; Basophils Absolute Auto 100 /uL (0-100); Eosinophils Absolute Auto 300 /uL (0-450); Eosinophils Percent Auto 4.4 % (2-4); Hematocrit 36.3 % (36-46); Hemoglobin 12.3 g/dL (12.0-16.0); Lymphocytes Absolute Auto 2100 /uL (1100-4500); Lymphocytes Percent Auto 31.6 % (25-40); Mean Corpuscular Hemoglobin 30.5 PG (26-34); Mean Corpuscular Volume 89.9 fL (80-100); Monocytes Absolute Auto 500 /uL (0-900); Neutrophils Absolute Auto 3600 /uL (1500-7000); Platelet Count 191 X10^3/uL (150-400); Red Blood Cell Count 4.04 X10^6/uL (4.0-5.2); Red Cell Distribution Width 12.8 % (11.6-14.8); White Blood Cell Count 6.5 X10^3/uL (4.5-11.0)
[2023-04-03 16:51] LABS: Prothrombin Time 11.3 SECONDS (10.1-12.7)
[2023-04-03 16:54] LABS: PTT Partial Thromboplastin Tim 27 SECONDS (26-36)
[2023-04-03 16:57] LABS: Alanine Aminotransferase 24 IU/L (<35); Albumin 4.3 g/dL (3.5-5.0); Albumin Globulin Ratio 1.5 (1.0-2.8); Alkaline Phosphatase 78 U/L (38-126); Aspartate Aminotransferase 29 IU/L (14-36); BUN Creatinine Ratio 21.4 (6-22); Bilirubin Total 0.7 mg/dL (0.2-1.3); Blood Urea Nitrogen 15 mg/dL (7-17); Calcium 8.8 mg/dL (8.4-10.2); Carbon Dioxide 29 mmol/L (22-32); Chloride 99 mmol/L (98-107); Creatine Kinase 87 U/L (30-135); Estimated Glomerular Filt Rate > 60 mL/min (>60); Globulin 2.9 g/dL (1.7-4.1); Glucose 127 mg/dL (80-110); HEMOLYSIS < 15 (0-50); Potassium 3.9 mmol/L (3.4-5.1); Sodium 134 mmol/L (137-145); Total Protein 7.2 g/dL (6.3-8.2)
[2023-04-03 17:09] LABS: Troponin I < 0.012 ng/mL (0.01-0.034)
--- NOTE | 2023-04-03 18:16 | ED_ITS ---
HPI - Neuro Symptoms/Deficit General Chief Complaint: Neuro Symptoms/Deficit Stated Complaint: hx stroke, sent from NH, migraine, speech issues Time Seen by Provider: 04/03/23 18:16 Source: patient Mode of arrival: Family Vehicle Limitations: no limitations History of Present Illness HPI Narrative: This is a 72-year-old female with history of chronic migraines and prior stroke, dyslipidemia, chronic back pain, GERD, hypoglycemia and PTSD. Patient presents today after having 2 3 days of symptoms. She states this is very similar to her prior stroke. She is had severe headache for the last several days she has some sort of off balance feeling, she states she is had a fall in the last week felt a little lightheaded. She has not had any syncope no chest pain or shortness of breath, no numbness, tingling or weakness. No nausea or vomiting. She states she has some right facial droop that seems to be more prominent when she is tired. Her and her caregiver noticed it seems to be more persistent for the last 3 days during the daytime as well and not just in the evenings. Her speech is normally worsening evening she but has been a little bit worse today. 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 She has had migraines on and off for some time. She states she is had little bit worse the last several days. She takes multiple medications including aspirin, statin, medication for her migraines although she does not recall the name. Patient states she is had prior bilateral knee surgery. She is allergic to penicillin and she states iodine topically and has multiple food allergies. No tobacco, she does use alcohol. No illicit. She states she was doing intake with the stroke clinic today was answering some of their questions and they told her she needed to come to. She is accompanied by her caregiver Bozena and service dog. [facility] she states she is a disabled . On Anticoagulants: No Related Data Home Medications Medication Instructions Recorded Confirmed albuterol sulfate 90 mcg/actuation 2 puff inhalation Q4-6H PRN 07/27/20 06/27/22 aerosol inhaler Shortness Of Breath atorvastatin 40 mg tablet 40 mg PO DAILY 07/27/20 06/27/22 diclofenac sodium 1 % topical gel 2 g topical BID PRN Pain 07/27/20 06/27/22 (Voltaren) fluticasone propionate 50 1 spray intranasal BID 07/27/20 06/27/22 mcg/actuation nasal spray,suspension gabapentin 300 mg capsule 600 mg PO TID 07/27/20 06/27/22 loratadine 10 mg capsule 10 mg PO DAILY 07/27/20 06/27/22 mirabegron 25 mg tablet,extended 25 mg PO DAILY 07/27/20 06/27/22 release 24 hr (Myrbetriq) mometasone 200 mcg/actuation HFA 1 puff inhalation BID 07/27/20 06/27/22 aerosol inhaler (Asmanex HFA) naproxen 500 mg tablet 500 mg PO BID PRN Pain 07/27/20 06/27/22 omeprazole 40 mg capsule,delayed 40 mg PO BID 07/27/20 06/27/22 release propranolol 20 mg tablet 20 mg PO BEDTIME 07/27/20 06/27/22 aspirin 81 mg tablet,delayed 81 mg PO Q OTHER DAY 06/14/22 06/27/22 release dicyclomine 10 mg capsule 10 mg PO BID PRN GI upset 06/15/22 06/27/22 melatonin 3 mg tablet 3 mg PO BEDTIME 06/15/22 06/27/22 sertraline 100 mg tablet 150 mg PO BEDTIME 06/15/22 06/27/22 Previous Rx's Medication Instructions Recorded acetaminophen 325 mg tablet 650 mg PO Q6HR #240 tabs 06/29/22 aspirin 81 mg tablet,delayed 81 mg PO BID #90 tabs 06/29/22 release docusate sodium 100 mg capsule 100 mg PO BID PRN constipation #60 06/29/22 caps oxycodone 5 mg tablet 5 mg PO Q4-6H PRN Pain, Moderate 06/29/22 (4-6) #60 tabs Allergies Allergy/AdvReac Type Severity Reaction Status Date / Time almond Allergy Severe Tongue, Verified 04/03/23 16:05 throat swelling banana Allergy Severe Throat Verified 04/03/23 16:05 closes shrimp Allergy Severe Throat Verified 04/03/23 16:05 closes latex Allergy Intermediate Rash Verified 04/03/23 16:05 iodine Allergy Mild Rash - Verified 04/03/23 16:05 Topical only neoprene Allergy Intermediate Rash Uncoded 04/03/23 16:05 Review of Systems Review of Systems ROS Unobtainable: All systems reviewed & are unremarkable except as noted in HPI and below Hematologic/Lymphatic On Anticoagulants: No Patient History Medical History Allergic rhinitis Anxiety Asthma Back pain 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 Celiac disease (2021) Colon polyps COVID-19 virus infection Depression Easy bruisability Eczema GERD (gastroesophageal reflux disease) Hammer toe of right foot HLD (hyperlipidemia) Hypoglycemia IBS (irritable bowel syndrome) Melanoma Migraine headache Osteoarthritis Ovarian cancer Overactive bladder PTSD (post-traumatic stress disorder) Rabies exposure (06/2020) Right wrist fracture (05/2020) Sensitive skin Suicidal ideation Surgical History History of arthroplasty of right knee (08/10/20) History of bilateral breast implants History of bunionectomy of both great toes History of right oophorectomy Hx of bilateral cataract extraction Hx of left knee surgery Hx of tonsillectomy Social History household members: none Smoking Status: Never smoker alcohol intake: current Smoking Status: Never smoker alcohol intake frequency: a few times a week Substance Use Type: marijuana Exam Narrative Exam Narrative: GEN: well nourished, well appearing female, alert and oriented x 3, patient appears to be in mild distress. HEENT: Atraumatic, pupils are equal round reactive to light, extraocular movements are intact, nares are clear. Throat is clear without any exudates, erythema, tonsillar enlargement or uvular deviation, mild right facial droop. HEART: Regular rate and rhythm without murmur, clicks, rubs. LUNGS:Lungs clear to auscultation, no wheezes, rales, crackles, chest moves symmetrically ABD:bowel sounds normal, soft, non-tender, no guarding, rebound, rigidity, no masses noted, no hepatosplenomegaly MSCL: Non-tender, no muscle atrophy, muscles strength 5/5 upper and lower extremities, full range of motion. NEURO:CN 2-12 intact, sensation normal SKIN: No rash, erythema or other skin changes. Initial Vital Signs Initial Vital Signs: Vital Signs Temperature 98.8 F 04/03/23 15:40 Pulse Rate 75 04/03/23 15:40 Respiratory Rate 19 04/03/23 15:40 Blood Pressure 130/60 04/03/23 15:40 Pulse Oximetry 95 04/03/23 15:40 Oxygen Delivery Method Room Air 04/03/23 15:40 Scores NIH Stroke Scale Level of Conciousness: Alert, keenly responsive Ask month/age: Answers both questions correctly. Open/close eyes, close hand: Performs both tasks correctly Best gaze horizontal: Normal Visual feng: No visual loss Facial palsy: Minor paralysis, flattened nasolabial fold, asymmetry on smiling Left arm drift: No drift for full 10 sec Right arm drift: No drift for full 10 sec Left leg drift: No drift for full 5 sec Right leg drift: No drift for full 5 sec Limb ataxia: Absent Sensory on face/arms/legs: Normal, no sensory loss Best language: No aphasia, normal Dysarthria: Normal Extinction or inattention: No abnormality Total NIH Stroke scale score: 1 Course Orders Ordered: Discontinued Medications Dexamethasone (Dexamethasone 10 Mg/Ml Vial) 10 mg IV NOW ONE Stop: 04/03/23 20:12 Last Admin: 04/03/23 20:21 Dose: 10 mg Documented By: [facility] Diphenhydramine HCl (Diphenhydramine 50 Mg/Ml Vial) 25 mg IV NOW ONE Stop: 04/03/23 16:08 Last Admin: 04/03/23 16:26 Dose: 25 mg Documented By: EMANI Methylprednisolone (Methylprednisolone 125 Mg/2 Ml Vial) 125 mg IV NOW ONE Stop: 04/03/23 16:08 Last Admin: 04/03/23 16:26 Dose: 125 mg Documented By: EMANI Morphine Sulfate (Morphine 4 Mg/Ml Inj) 4 mg IV NOW ONE Stop: 04/03/23 18:41 Last Admin: 04/03/23 19:21 Dose: 4 mg Documented By: EMANI Ondansetron HCl (Ondansetron 4 Mg/2 Ml Inj) 4 mg IV NOW PRN PRN Reason: Nausea And Vomiting Last Admin: 04/03/23 19:19 Dose: 4 mg Documented By: EMANI Ondansetron HCl (Ondansetron 4 Mg Odt) 4 mg SL NOW PRN PRN Reason: Nausea And Vomiting Vital Signs Vital signs: Vital Signs - 8 hr 04/03/23 21:04 Pulse Rate 74 Respiratory Rate 16 Blood Pressure 144/62 H Pulse Oximetry 99 Oxygen Delivery Method Room Air MDM - Neuro Symptoms/Deficit Lab Data 04/03/23 16:20 04/03/23 16:20 Labs: Lab Results 04/03/23 04/03/23 04/03/23 Range/Units 16:20 16:20 16:20 WBC 6.5 (4.5-11.0) X10^3/uL RBC 4.04 (4.0-5.2) X10^6/uL Hgb 12.3 (12.0-16.0) g/dL Hct 36.3 (36-46) % MCV 89.9 (80-100) fL MCH 30.5 (26-34) PG MCHC 34.0 (30-36) % RDW 12.8 (11.6-14.8) % Plt Count 191 (150-400) X10^3/uL Neut % (Auto) 56.0 (50-75) % Lymph % (Auto) 31.6 (25-40) % [place] % (Auto) 7.0 (3-14) % Eos % (Auto) 4.4 H (2-4) % Baso % (Auto) 1.0 (0-2) % Neut # (Auto) 3600 (4451-4732) /uL Lymph # (Auto) 2100 (9405-1826) /uL [place] # (Auto) 500 (0-900) /uL Eos # (Auto) 300 (0-450) /uL Baso # (Auto) 100 (0-100) /uL PT 11.3 (10.1-12.7) SECONDS INR 1.0 (0.9-1.3) APTT 27 (26-36) SECONDS Sodium 134 L (137-145) mmol/L Potassium 3.9 (3.4-5.1) mmol/L Chloride 99 (98-107) mmol/L Carbon Dioxide 29 (22-32) mmol/L BUN 15 (7-17) mg/dL Creatinine 0.70 (0.52-1.04) mg/dL Estimated GFR > 60 (>60) mL/min BUN/Creatinine Ratio 21.4 (6-22) Glucose 127 H (80-110) mg/dL Calcium 8.8 (8.4-10.2) mg/dL Magnesium 2.0 (1.6-2.3) mg/dL Total Bilirubin 0.7 (0.2-1.3) mg/dL AST 29 (14-36) IU/L ALT 24 (<35) IU/L Alkaline Phosphatase 78 (38-126) U/L Total Creatine Kinase 87 (30-135) U/L CK-MB (CK-2) TNP CK-MB (CK-2) Rel Index TNP Troponin I < 0.012 (0.01-0.034) ng/mL Total Protein 7.2 (6.3-8.2) g/dL Albumin 4.3 (3.5-5.0) g/dL Globulin 2.9 (1.7-4.1) g/dL Albumin/Globulin Ratio 1.5 (1.0-2.8) Urine RBC (0-5/HPF) Urine WBC (0-5/HPF) Ur Squamous Epith Cells (0-5/HPF) Urine Bacteria (None) Ur Culture Indicated? U Opiates 300ng/mL cut (Negative) Ur Oxycodone Screen (Negative) Urine Methadone Screen (Negative) Ur Barbiturates Screen (Negative) U Tricyclic Antidepress (Negative) Ur Phencyclidine Scrn (Negative) Ur Amphetamines Screen (Negative) U Methamphetamines Scrn (Negative) Ur MDMA Scrn (Ecstasy) (Negative) U Benzodiazepines Scrn (Negative) Urine Cocaine Screen (Negative) U Marijuana (THC) Screen (Negative) 04/03/23 04/03/23 Range/Units 18:20 18:20 WBC (4.5-11.0) X10^3/uL RBC (4.0-5.2) X10^6/uL Hgb (12.0-16.0) g/dL Hct (36-46) % MCV (80-100) fL MCH (26-34) PG MCHC (30-36) % RDW (11.6-14.8) % Plt Count (150-400) X10^3/uL Neut % (Auto) (50-75) % Lymph % (Auto) (25-40) % [place] % (Auto) (3-14) % Eos % (Auto) (2-4) % Baso % (Auto) (0-2) % Neut # (Auto) (2599-8039) /uL Lymph # (Auto) (8543-8417) /uL [place] # (Auto) (0-900) /uL Eos # (Auto) (0-450) /uL Baso # (Auto) (0-100) /uL PT (10.1-12.7) SECONDS INR (0.9-1.3) APTT (26-36) SECONDS Sodium (137-145) mmol/L Potassium (3.4-5.1) mmol/L Chloride (98-107) mmol/L Carbon Dioxide (22-32) mmol/L BUN (7-17) mg/dL Creatinine (0.52-1.04) mg/dL Estimated GFR (>60) mL/min BUN/Creatinine Ratio (6-22) Glucose (80-110) mg/dL Calcium (8.4-10.2) mg/dL Magnesium (1.6-2.3) mg/dL Total Bilirubin (0.2-1.3) mg/dL AST (14-36) IU/L ALT (<35) IU/L Alkaline Phosphatase (38-126) U/L Total Creatine Kinase (30-135) U/L CK-MB (CK-2) CK-MB (CK-2) Rel Index Troponin I (0.01-0.034) ng/mL Total Protein (6.3-8.2) g/dL Albumin (3.5-5.0) g/dL Globulin (1.7-4.1) g/dL Albumin/Globulin Ratio (1.0-2.8) Urine RBC None seen (0-5/HPF) Urine WBC None seen (0-5/HPF) Ur Squamous Epith Cells None seen (0-5/HPF) Urine Bacteria None seen (None) Ur Culture Indicated? Cult not indicated U Opiates 300ng/mL cut Negative (Negative) Ur Oxycodone Screen Negative (Negative) Urine Methadone Screen Negative (Negative) Ur Barbiturates Screen Negative (Negative) U Tricyclic Antidepress Negative (Negative) Ur Phencyclidine Scrn Negative (Negative) Ur Amphetamines Screen Negative (Negative) U Methamphetamines Scrn Negative (Negative) Ur MDMA Scrn (Ecstasy) Negative (Negative) U Benzodiazepines Scrn Negative (Negative) Urine Cocaine Screen Negative (Negative) U Marijuana (THC) Screen Negative (Negative) Urine Dip Bedside Urine Glucose Negative Bedside Urine Bilirubin - Negative Bedside Urine Ketone - Negative Urine Specific [place] 1.005 Bedside Urine Occult Blood - Negative Bedside Urine pH 7.0 Bedside Urine Protein - Negative Bedside Urine Nitrite - Negative Bedside Urine Leukocytes +/- 15 Esterase Imaging Data CTA - brain/neck: Radiologist's Impression: Close Head/Neck CTA (Signed) Leroy Lucas - 04/03/23 Chest X-Ray (Signed) Claire Sarkar - 04/03/[address] (Signed) Jermaine Gtz - 12/08/22 Brain MRI (Signed) Leroy Lucas - 12/06/22 Knee X-Ray (Signed) Basilio Platt - 06/27/22 Knee MRI (Signed) Basilio Platt - 05/03/22 Outside EKG 04/07/22 Abdomen X-Ray (Signed) Claire Sarkar - 12/26/21 Lumbar Spine MRI (Signed) Basilio Platt - 06/16/21 Knee X-Ray (Signed) Kaiden Arzola - 08/10/20 Knee MRI (Signed) Anshu Fang - 07/08/[address] (Signed) Rick Otero - 08/08/19 [place] [address] CT Scan Report Signed Patient: Vivi Rowe MR#: [id number] : 1950 Acct:[id number] Age/Sex: 72 / F Date of Service: 04/03/23 Loc: ED Accession Number: [id number] ?? Procedure: CT angio head and neck Ordering Provider: Anju Cardoza D.O. PROCEDURE:? CT ANGIO HEAD AND NECK ? INDICATIONS:? Neurologic deficit ? TECHNIQUE:? Pre-contrast 4.5 mm thick sections acquired from the foramen magnum to the vertex.? After the administration of intravenous contrast, 1 mm thick sections acquired from the aortic arch through the [place].? Post-contrast 4.5 mm thick sections then re- acquired from the foramen magnum to the vertex.? MIP reformats of the arterial vasculature were utilized.? For radiation dose reduction, the following was used:? automated exposure control, adjustment of mA and/or kV according to patient size.? ? COMPARISON:? None. ? FINDINGS:? Image quality:? Excellent.? ? BRAIN:? CSF spaces:? Ventricles are normal in size and shape.? Basal cisterns are patent.? No extra-axial fluid collections.? ? Brain:? No midline shift.? No intracranial bleeds or masses.? Sheth-white matter interface appears intact.? ? Skull and face:? Calvarium and facial bones appear intact, without suspicious lesions.? Orbits appear normal.? Incidental hyperostosis frontalis interna noted. ? Sinuses:? Sinuses and mastoids are clear.? ? HEAD CT ANGIOGRAPHY:? Anterior circulation:? Intracranial internal carotid arteries are normal in size and flow.? The flow within the paired anterior cerebral arteries is normal and symmetric.? The flow within the middle cerebral arteries is normal and symmetric.? The anterior communicating artery is seen.? No aneurysms are seen.? ? Posterior circulation:? Visualized portions of the vertebral arteries demonstrate normal caliber, and join to form a normal appearing basilar artery.? 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 The P2 segment is supplied by a widely patent posterior communicating artery. Remainder of the distal vasculature unremarkable.? No aneurysms are seen.? ? NECK CT ANGIOGRAPHY:? Carotid system:? The great vessels demonstrate a conventional anatomy as they arise from the aortic arch.? The origins of the common carotid arteries appear patent.? The common carotid arteries demonstrate normal caliber and courses.? The bifurcation regions are both widely patent.? The internal carotid arteries demonstrate normal calibers and courses.? ? Posterior circulation:? The origins of the vertebral arteries both appear widely patent.? The more superior extracranial portions of both vertebral arteries also demonstrate normal courses and calibers.? They join to form a normal appearing basilar artery.? ? Soft tissues:? Visualized neck soft tissues demonstrate no suspicious abn ormalities.? ? Bones:? No suspicious bony lesions.? Visualized cervical spine appears normally aligned.? Degenerative disc disease and arthropathy noted in the cervical spine ? ? IMPRESSION:? ? Unremarkable CT angiogram of the brain without large vessel occlusion, aneurysm or vascular malformation ? Any quantitative measurements of stenosis were performed using NASCET criteria.? Approved by: Leroy Lucas M.D. on 04/03/2023 at 17:10? Chest x-ray: Radiologist's Impression: Close Head/Neck CTA (Signed) Leroy Lucas 04/03/23 Chest X-Ray (Signed) Claire Sarkar - 04/03/[address] (Signed) Jermaine Gtz - 12/08/22 Brain MRI (Signed) Leroy Lucas - 12/06/22 Knee X-Ray (Signed) Basilio Platt - 06/27/22 Knee MRI (Signed) Basilio Platt - 05/03/22 Outside EKG 04/07/22 Abdomen X-Ray (Signed) Claire Sarkar - 12/26/21 Lumbar Spine MRI (Signed) Basilio Platt - 06/16/21 Knee X-Ray (Signed) Grayson Arzolan - 08/10/20 Knee MRI (Signed) Anshu Fang - 07/08/[address] (Signed) Rick Otero - 08/08/19 [place]?[facility] [address] [address] XRay Report Signed Patient: Vivi Rowe MR#: [id number] : 1950 Acct:[id number] Age/Sex: 72 / F Date of Service: 04/03/23 Loc: ED Accession Number: [id number] ?? Procedure: XR chest 1V Ordering Provider: Anju Cardoza D.O. PROCEDURE:? XR CHEST 1V ? INDICATIONS:? Possible stroke ? TECHNIQUE:? One view of the chest was acquired.? ? COMPARISON:? None. ? FINDINGS:? ? Surgical changes and devices:? None.? ? Lungs and pleura:? Lungs are clear.? No pleural effusions or pneumothorax.? ? Mediastinum:? Mediastinal contours appear normal.? Heart size is normal.? ? Bones and chest wall:? No suspicious bony lesions.? Overlying soft tissues appear unremarkable.? ? IMPRESSION:? No acute cardiopulmonary disease process. ? ? Dictated by: Claire Sarkar MD, PhD on 04/03/2023 at 16:45 ? ? Approved by: Claire Sarkar MD, PhD on 04/03/2023 at 16:46?? MRI Brain: Radiologist's Impression: [address] [address] Magnetic Resonance Report Signed Patient: Vivi Rowe MR#: [id number] : 1950 Acct:[id number] Age/Sex: 72 / F Date of Service: 04/03/23 Loc: ED Accession Number: [id number] ?? Procedure: MR head/brain wo con Ordering Provider: Adilene Perez D.O. PROCEDURE:? MR HEAD/BRAIN WO CON ? INDICATIONS:? hx cva, similar to prior, speech, droop, bad figueroa ? TECHNIQUE:? Non-contrast axial T1 spin echo, axial T2 fast spin echo, sagittal and axial FLAIR, coronal T2 fast spin echo, axial gradient echo, axial diffusion and ADC through the brain.? ? COMPARISON:? [facility], CT, CT ANGIO HEAD AND NECK, 04/03/2023, 17:28.? [facility], CT, CT HEAD/BRAIN WO CON, 12/08/2022, 20:48.? [facility], MR, MR HEAD/BRAIN WO CON, 12/06/2022, 12:52. ? FINDINGS:? Image quality:? Excellent.? ? CSF spaces:? Ventricles appear symmetric in size and shape.? Basal cisterns are patent.? No extra-axial fluid collections.? ? Brain:? No intracranial bleeds or mass effects.? There is cerebral volume loss for age.? There are periventricular and deep white matter chronic small vessel ischemic changes.? Brainstem appears normal.? Diffusion-weighted images show no acute ischemic insults.? No chronic ischemic insults.? Normal intravascular flow voids are present.? Relatively prominent perivascular spaces are noted. ? Skull and face:? Calvarial bone marrow is normal in signal.? Orbits are normal.? Note is made of bilateral lens replacements. Incidental note is made of hyperostosis frontalis. This is not considered to be pathologic in a woman of this age. ? Sinuses:? Sinuses and mastoids are clear.? ? IMPRESSION:? No findings of acute or subacute infarction can be seen. ? ? Dictated by: Terence Spence M.D. on 04/03/2023 at 18:53 ? ? Approved by: Terecne Spence M.D. on 04/03/2023 at 18:55?? ECG Data Attestation: I personally reviewed and interpreted this ECG as follows: Prior ECG tracings: not available for review Interpretation: Sinus rhythm, rate of 64, ID 144 QRS is [address]TC [address] No acute [address] changes apprec iated compared to prior. MDM Narrative Medical decision making narrative: This is a 72-year-old female who presents with concern for recurrent stroke. Patient states she is had severe headache consistent with her prior migraines and similar symptoms but also consistent with her prior stroke. She states at least 2 or 3 days of symptoms. They are just slightly worse her facial droop which is sometimes there when she is tired has been a little bit more persistent she is noticed a little bit more speech changes which is normally worse at nighttime. Headache has been persistent for several days. Patient was doing stroke intake today with the stroke clinic and was told to come to the ER. Initial head CTA is negative, chest x-ray is negative, EKG does not show acute changes or AFib. CBC, coags, CMP, LFTs and tropes are negative. Patient's NIH is 1 but per patient this is for facial droop which is present sometimes any way. Patient had MRI obtained with no findings of acute or subacute infarction. Discussed findings today with patient. She did have some improvement of her headache/migraine. Discussed a dose of dexamethasone to see if this would help break her cycle. 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 Stroke Core Measures Exclusion Criteria TPA in CVA: Symptom Onset >3 or 4.5 Hours Discharge Plan Departure Patient Disposition: Home Clinical Impression: Migraine Instructions: DI for Migraine Activity Restrictions/Additional Instructions: Your MRI today does not show any signs of stroke. Please continue your home medications as prescribed, please follow up with the stroke clinic please call to set up an appointment. Please return for new or worsening symptoms, new weakness, rapidly worsening headaches, persistent vomiting, numbness, tingling, new facial droop, new speech changes or other new or concerning changes. Prescriptions: No Action aspirin 81 mg tablet,delayed release (DR/EC) 81 mg PO Q OTHER DAY sertraline 100 mg Tablet 150 mg PO BEDTIME melatonin 3 mg Tablet 3 mg PO BEDTIME dicyclomine 10 mg Capsule 10 mg PO BID PRN (Reason: GI upset) acetaminophen 325 mg Tablet 650 mg PO Q6HR Qty: 240 1RF aspirin 81 mg Tablet,Delayed Release (Dr/Ec) 81 mg PO BID Qty: 90 0RF docusate sodium 100 mg Capsule 100 mg PO BID PRN (Reason: constipation) Qty: 60 2RF oxycodone 5 mg Tablet 5 mg PO Q4-6H PRN (Reason: Pain, Moderate (4-6)) Qty: 60 0RF atorvastatin 40 mg Tablet 40 mg PO DAILY omeprazole 40 mg Capsule,Delayed Release(Dr/Ec) 40 mg PO BID gabapentin 300 mg Capsule 600 mg PO TID propranolol 20 mg Tablet 20 mg PO BEDTIME fluticasone propionate 50 mcg/actuation [place],Suspension 1 spray INTRANASAL BID naproxen 500 mg Tablet 500 mg PO BID PRN (Reason: Pain) diclofenac sodium [Voltaren] 1 % Gel 2 g TOPICAL BID PRN (Reason: Pain) loratadine 10 mg Capsule 10 mg PO DAILY Myrbetriq 25 mg Tablet Extended Release 24 Hr 25 mg PO DAILY Patient Comments: for bladder incontinence Asmanex HFA 200 mcg/actuation Hfa Aerosol Inhaler 1 puff INHALATION BID albuterol sulfate 90 mcg/actuation Hfa Aerosol Inhaler 2 puff INHALATION Q4-6H PRN (Reason: Shortness Of Breath) Referrals: Miscellaneous,Doctor, MD [Primary Care Provider] - Stand Alone Forms: Patient Portal/API
--- NOTE | 2023-04-03 18:38 | DI.MRI.S_ITS ---
PROCEDURE: MR HEAD/BRAIN WO CON INDICATIONS: hx cva, similar to prior, speech, droop, bad figueroa TECHNIQUE: Non-contrast axial T1 spin echo, axial T2 fast spin echo, sagittal and axial FLAIR, coronal T2 fast spin echo, axial gradient echo, axial diffusion and ADC through the brain. COMPARISON: [facility], CT, CT ANGIO HEAD AND NECK, 04/03/2023, 17:28. [facility], CT, CT HEAD/BRAIN WO CON, 12/08/2022, 20:48. [facility], MR, MR HEAD/BRAIN WO CON, 12/06/2022, 12:52. FINDINGS: Image quality: Excellent. CSF spaces: Ventricles appear symmetric in size and shape. Basal cisterns are patent. No extra-axial fluid collections. Brain: No intracranial bleeds or mass effects. There is cerebral volume loss for age. There are periventricular and deep white matter chronic small vessel ischemic changes. Brainstem appears normal. Diffusion-weighted images show no acute ischemic insults. No chronic ischemic insults. Normal intravascular flow voids are present. Relatively prominent perivascular spaces are noted. Skull and face: Calvarial bone marrow is normal in signal. Orbits are normal. Note is made of bilateral lens replacements. Incidental note is made of hyperostosis frontalis. This is not considered to be pathologic in a woman of this age. Sinuses: Sinuses and mastoids are clear. IMPRESSION: No findings of acute or subacute infarction can be seen. Dictated by: Terence Spence M.D. on 04/03/2023 at 18:53 Approved by: Terence Spence M.D. on 04/03/2023 at 18:55
[2023-04-03 18:59] LABS: Bacteria Urine None Seen
[2023-04-03 19:16] LABS: Culture Indicated Urine Cult Not Indicated; RBC Urine None Seen (0-5/HPF); Squamous Epithelial Cell Urine None Seen (0-5/HPF); WBC Urine None Seen (0-5/HPF)
[2023-04-03 19:18] LABS: UR Morphine/Opiate cutoff 300 Negative (Negative); Ur Creatinine Normal (Normal); Ur Specific Gravity Normal (Normal); Urine Amphetamines Negative (Negative); Urine Barbiturates Negative (Negative); Urine Benzodiazepines Negative (Negative); Urine Cocaine Negative (Negative); Urine MDMA Negative (Negative); Urine Methadone Negative (Negative); Urine Methamphetamines Negative (Negative); Urine Oxycodone Negative (Negative); Urine Phencyclidine Negative (Negative); Urine Tetrahydrocannabinol Negative (Negative); Urine Tricyclic Antidepressant Negative (Negative); Urine pH Normal (Normal)
[2023-04-03] MEDS: ONDANSETRON 4 MG/2 ML INJ IV (19:19)
[2023-04-03] MEDS: MORPHINE 4 MG/ML INJ IV (19:21)
[2023-04-03] MEDS: DEXAMETHASONE 10 MG/ML VIAL IV (20:21)
== END 2023-04-03 21:06 | disposition home or self-care (01) ==
PROVIDERS: Emergency Medicine; Emergency Provider Emergency Medicine
DX: G43.909 Migraine, unspecified, not intractable, without status migrainosus (principal); R42 Dizziness and giddiness; R29.810 Facial weakness; R03.0 Elevated blood-pressure reading, without diagnosis of hypertension
CPT/HCPCS: 36415; 70496; 70498; 70551; 71045; 80053; 80305; 81003; 81015; 82550; 83735; 84484; 85025; 85610; 85730; 93005; 93010; 96374; 96375; 99284; 99285; J1100; J1200; J2270; J2405; J2930; Q9967

== ENCOUNTER 2023-04-30 15:51 | Emergency (ER) | payer OTHER, SELFPAY ==
[2022-06-27 15:39] VITALS: BMI 27.3
[2023-04-30] VITALS (11 sets, daily range): BP systolic 112–162; BP diastolic 57–86; PULSE 60–69; RESP 18; TEMP 36.9; O2SAT 94–98; BMI 29.7
--- NOTE | 2023-04-30 16:06 | ED.GENADULT ---
HPI - General Adult General Chief complaint: Headache Stated complaint: ROSALBA, 06/07 pain Time Seen by Provider: 04/30/23 16:06 Source: patient and EMS Mode of arrival: EMS Limitations: no limitations History of Present Illness HPI narrative: Patient is a 72-year-old female. Has a history of chronic migraines. Also has had a stroke in the past. She states that her stroke was earlier this year. No residual deficits except for some speech issues. She is here for a headache. States the headache has been going on for the past couple weeks. She thought that she did have some tingling in her left arm and tingling in her hands. No vomiting. No fevers. Medications at home were not helping. Related Data Home Medications Medication Instructions Recorded Confirmed albuterol sulfate 90 mcg/actuation 2 puff inhalation Q4-6H PRN 07/27/20 06/27/22 aerosol inhaler Shortness Of Breath atorvastatin 40 mg tablet 40 mg PO DAILY 07/27/20 06/27/22 diclofenac sodium 1 % topical gel 2 g topical BID PRN Pain 07/27/20 06/27/22 (Voltaren) fluticasone propionate 50 1 spray intranasal BID 07/27/20 06/27/22 mcg/actuation nasal spray,suspension gabapentin 300 mg capsule 600 mg PO TID 07/27/20 06/27/22 loratadine 10 mg capsule 10 mg PO DAILY 07/27/20 06/27/22 mirabegron 25 mg tablet,extended 25 mg PO DAILY 07/27/20 06/27/22 release 24 hr (Myrbetriq) mometasone 200 mcg/actuation HFA 1 puff inhalation BID 07/27/20 06/27/22 aerosol inhaler (Asmanex HFA) naproxen 500 mg tablet 500 mg PO BID PRN Pain 07/27/20 06/27/22 omeprazole 40 mg capsule,delayed 40 mg PO BID 07/27/20 06/27/22 release propranolol 20 mg tablet 20 mg PO BEDTIME 07/27/20 06/27/22 aspirin 81 mg tablet,delayed 81 mg PO Q OTHER DAY 06/14/22 06/27/22 release dicyclomine 10 mg capsule 10 mg PO BID PRN GI upset 06/15/22 06/27/22 melatonin 3 mg tablet 3 mg PO BEDTIME 06/15/22 06/27/22 sertraline 100 mg tablet 150 mg PO BEDTIME 06/15/22 06/27/22 Previous Rx's Medication Instructions Recorded acetaminophen 325 mg tablet 650 mg PO Q6HR #240 tabs 06/29/22 aspirin 81 mg tablet,delayed 81 mg PO BID #90 tabs 06/29/22 release docusate sodium 100 mg capsule 100 mg PO BID PRN constipation #60 06/29/22 caps oxycodone 5 mg tablet 5 mg PO Q4-6H PRN Pain, Moderate 06/29/22 (4-6) #60 tabs sumatriptan succinate 25 mg tablet See Rx Instructions PO .COMPLEX 04/30/23 (Imitrex) #12 tabs Allergies Allergy/AdvReac Type Severity Reaction Status Date / Time almond Allergy Severe Tongue, Verified 04/03/23 16:05 throat swelling banana Allergy Severe Throat Verified 04/03/23 16:05 closes shrimp Allergy Severe Throat Verified 04/03/23 16:05 closes latex Allergy Intermediate Rash Verified 04/03/23 16:05 iodine Allergy Mild Rash - Verified 04/03/23 16:05 Topical only neoprene Allergy Intermediate Rash Uncoded 04/03/23 16:05 Review of Systems Constitutional Constitutional: Reports system reviewed and no additional complaints, except as documented Cardiovascular Cardiovascular: Reports system reviewed and no additional complaints, except as documented Respiratory Respiratory: Reports system reviewed and no additional complaints, except as documented Integumentary/Breasts Skin/Breast: Reports system reviewed and no additional complaints, except as documented Neurologic Neurologic: Reports system reviewed and no additional complaints, except as documented Hematologic/Lymphatic On Anticoagulants: No Patient History Medical History Allergic rhinitis Anxiety Asthma Back pain 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 Celiac disease (2021) Colon polyps COVID-19 virus infection Depression Easy bruisability Eczema GERD (gastroesophageal reflux disease) Hammer toe of right foot HLD (hyperlipidemia) Hypoglycemia IBS (irritable bowel syndrome) Melanoma Migraine headache Osteoarthritis Ovarian cancer Overactive bladder PTSD (post-traumatic stress disorder) Rabies exposure (06/2020) Right wrist fracture (05/2020) Sensitive skin Suicidal ideation Surgical History History of arthroplasty of right knee (08/10/20) History of bilateral breast implants History of bunionectomy of both great toes History of right oophorectomy Hx of bilateral cataract extraction Hx of left knee surgery Hx of tonsillectomy Social History household members: none Smoking Status: Never smoker alcohol intake: current Smoking Status: Never smoker alcohol intake frequency: a few times a week Substance Use Type: marijuana Exam Initial Vital Signs Initial Vital Signs: Vital Signs Temperature 98.5 F 04/30/23 16:02 Pulse Rate 69 04/30/23 16:02 Respiratory Rate 18 04/30/23 16:02 Blood Pressure 123/80 04/30/23 16:02 Pulse Oximetry 95 04/30/23 16:02 Oxygen Delivery Method Room Air 04/30/23 16:02 HENMT Head: normal to inspection and atraumatic Resp Auscultation: clear to auscultation bilaterally Percussion: percussion normal Cardio Rate: regular rate Rhythm: regular rhythm GI Inspection: normal to inspection Skin General: no rashes or lesions noted Neuro General: patient alert, patient awake, patient oriented x3 and moves all extremities Cognition: normal cognition Speech: speech normal Motor: muscle tone normal throughout Extrem General: capillary refill normal Course Orders Ordered: ED Orders 04/30/23 16:09 CT head/brain wo con Stat 04/30/23 16:20 Basic Metabolic Panel Stat Complete Blood Count AUTO DIFF Stat Sumatriptan Succinate (Sumatriptan 25 Mg Tablet) 25 mg PO NOW ONE Stop: 04/30/23 18:08 Discontinued Medications Diphenhydramine HCl (Diphenhydramine 50 Mg/Ml Vial) 25 mg IV NOW ONE Stop: 04/30/23 16:10 Last Admin: 04/30/23 16:37 Dose: 25 mg Documented By: MEGAN Sodium Chloride (Normal Saline 0.9%) 1,000 mls @ 1,000 mls/hr IV BOLUS ONE Stop: 04/30/23 17:08 Last Admin: 04/30/23 16:36 Dose: 1,000 mls/hr Documented By: MEGAN Ketorolac Tromethamine (Ketorolac 30 Mg/Ml Vial) 30 mg IV NOW ONE Stop: 04/30/23 17:41 Last Admin: 04/30/23 17:45 Dose: 30 mg Documented By: MEGAN Metoclopramide HCl (Metoclopramide 10 Mg/2 Ml Inj) 10 mg IV NOW ONE Stop: 04/30/23 16:10 Last Admin: 04/30/23 16:37 Dose: 10 mg Documented By: MEGAN Vital Signs Vital signs: Vital Signs - 8 hr 04/30/23 16:02 04/30/23 16:06 04/30/23 16:35 Temperature 98.5 F Pulse Rate 69 64 65 Respiratory Rate 18 Blood Pressure 123/80 Pulse Oximetry 95 94 97 Oxygen Delivery Method Room Air Medical Decision Making Medical Records Medical records reviewed: Yes I reviewed the patient's medical records. Lab Data Lab results reviewed: Yes I reviewed the patient's lab results. 04/30/23 16:20 04/30/23 16:20 Labs: Lab Results 04/30/23 04/30/23 Range/Units 16:20 16:20 WBC 6.6 (4.5-11.0) X10^3/uL RBC 4.18 (4.0-5.2) X10^6/uL Hgb 13.0 (12.0-16.0) g/dL Hct 37.5 (36-46) % MCV 89.8 (80-100) fL MCH 31.0 (26-34) PG MCHC 34.6 (30-36) % RDW 12.6 (11.6-14.8) % Plt Count 193 (150-400) X10^3/uL Neut % (Auto) 58.3 (50-75) % Lymph % (Auto) 29.6 (25-40) % [place] % (Auto) 6.3 (3-14) % Eos % (Auto) 4.7 H (2-4) % Baso % (Auto) 1.1 (0-2) % Neut # (Auto) 3900 (5418-7609) /uL Lymph # (Auto) 2000 (9634-0812) /uL [place] # (Auto) 400 (0-900) /uL Eos # (Auto) 300 (0-450) /uL Baso # (Auto) 100 (0-100) /uL Sodium 135 L (137-145) mmol/L Potassium 4.0 (3.4-5.1) mmol/L Chloride 100 (98-107) mmol/L Carbon Dioxide 28 (22-32) mmol/L BUN 17 (7-17) mg/dL Creatinine 0.62 (0.52-1.04) mg/dL Estimated GFR > 60 (>60) mL/min BUN/Creatinine Ratio 27.4 H (6-22) Glucose 102 (80-110) mg/dL Calcium 9.2 (8.4-10.2) mg/dL Urine Dip Bedside Urine Glucose Negative Bedside Urine Bilirubin - Negative Bedside Urine Ketone - Negative Urine Specific Zoe 1.010 Bedside Urine Occult Blood - Negative Bedside Urine pH 6.0 Bedside Urine Protein - Negative Bedside Urine Urobilinogen - Negative Bedside Urine Nitrite - Negative Bedside Urine Leukocytes +/- 15 Esterase Point of care testing: Urine Dip Bedside Urine Glucose Negative Bedside Urine Bilirubin - Negative Bedside Urine Ketone - Negative Urine Specific Zoe 1.010 Bedside Urine Occult Blood - Negative Bedside Urine pH 6.0 Bedside Urine Protein - Negative Bedside Urine Urobilinogen - Negative Bedside Urine Nitrite - Negative Bedside Urine Leukocytes +/- [address] scan - head: Radiologist's Impression: PROCEDURE:? CT HEAD/BRAIN WO CON ? INDICATIONS:? headache hx of CVA ? TECHNIQUE:? Noncontrast 4.5 mm thick angled axial sections acquired from the foramen magnum to the vertex, with coronal and sagittal reformats.? For radiation dose reduction, the following was used:? automated exposure control, adjustment of mA and/or kV according to patient size.? ? COMPARISON:? [facility], CT, CT HEAD/BRAIN WO CON, 12/08/2022, 20:48. ? FINDINGS:? Image quality:? Excellent.? ? CSF spaces:? Basal cisterns are patent.? No extra-axial fluid collections.? Ventricles are normal in size and shape.? ? Brain:? No midline shift.? No intracranial masses or hemorrhage.? Sheth-white matter interface is normal.? ? Skull and face:? Calvarium and visualized facial bones are intact, without suspicious lesions.? ? Sinuses:? Visualized sinuses and mastoids are clear.? ? IMPRESSION:? No evidence acute intracranial process. MDM Narrative Medical decision making narrative: Patient did have some improvement with medications here in the ER but then her headache returned. Headache shows no acute pathology. No fevers. No trauma. Low suspicion for CVA. Patient states that she does feel comfortable going home. She thought that she can manage her headache at home without she feels now. She states she thinks she is migraine medicines at home but does not remember the name of it. I will send her home with a prescription for Imitrex. She was given return precautions and follow-up instructions. She expressed understanding and agreement. Discharge Plan Departure Patient Disposition: Home Clinical Impression: Headache Instructions: DI for Headache Activity Restrictions/Additional Instructions: I do recommend that you continue to take all of your medications as directed. Contact your primary doctor for a follow-up. Return to the emergency department for new or worsening symptoms. Prescriptions: New sumatriptan succinate [Imitrex] 25 mg tablet See Rx Instructions .ROUTE .COMPLEX Qty: 12 0RF Rx Instructions: take 1 tab at onset of headache; if no relief may repeat 1 tab after at least 2 hrs; max = 4 tabs/24 hr No Action aspirin 81 mg tablet,delayed release (DR/EC) 81 mg PO Q OTHER DAY sertraline 100 mg Tablet 150 mg PO BEDTIME melatonin 3 mg Tablet 3 mg PO BEDTIME dicyclomine 10 mg Capsule 10 mg PO BID PRN (Reason: GI upset) acetaminophen 325 mg Tablet 650 mg PO Q6HR Qty: 240 1RF aspirin 81 mg Tablet,Delayed Release (Dr/Ec) 81 mg PO BID Qty: 90 0RF docusate sodium 100 mg Capsule 100 mg PO BID PRN (Reason: constipation) Qty: 60 2RF oxycodone 5 mg Tablet 5 mg PO Q4-6H PRN (Reason: Pain, Moderate (4-6)) Qty: 60 0RF atorvastatin 40 mg Tablet 40 mg PO DAILY omeprazole 40 mg Capsule,Delayed Release(Dr/Ec) 40 mg PO BID gabapentin 300 mg Capsule 600 mg PO TID propranolol 20 mg Tablet 20 mg PO BEDTIME fluticasone propionate 50 mcg/actuation [place],Suspension 1 spray INTRANASAL BID naproxen 500 mg Tablet 500 mg PO BID PRN (Reason: Pain) diclofenac sodium [Voltaren] 1 % Gel 2 g TOPICAL BID PRN (Reason: Pain) loratadine 10 mg Capsule 10 mg PO DAILY Myrbetriq 25 mg Tablet Extended Release 24 Hr 25 mg PO DAILY Patient Comments: for bladder incontinence Asmanex HFA 200 mcg/actuation Hfa Aerosol Inhaler 1 puff INHALATION BID albuterol sulfate 90 mcg/actuation Hfa Aerosol Inhaler 2 puff INHALATION Q4-6H PRN (Reason: Shortness Of Breath) Referrals: Miscellaneous,Doctor, MD [Primary Care Provider] - Stand Alone Forms: Patient Portal/API
--- NOTE | 2023-04-30 16:09 | DI.CT.S_ITS ---
PROCEDURE: CT HEAD/BRAIN WO CON INDICATIONS: headache hx of CVA TECHNIQUE: Noncontrast 4.5 mm thick angled axial sections acquired from the foramen magnum to the vertex, with coronal and sagittal reformats. For radiation dose reduction, the following was used: automated exposure control, adjustment of mA and/or kV according to patient size. COMPARISON: [facility], CT, CT HEAD/BRAIN WO CON, 12/08/2022, 20:48. FINDINGS: Image quality: Excellent. CSF spaces: Basal cisterns are patent. No extra-axial fluid collections. Ventricles are normal in size and shape. Brain: No midline shift. No intracranial masses or hemorrhage. Sheth-white matter interface is normal. Skull and face: Calvarium and visualized facial bones are intact, without suspicious lesions. Sinuses: Visualized sinuses and mastoids are clear. IMPRESSION: No evidence acute intracranial process. Dictated by: Anuj Bautista M.D. on 04/30/2023 at 16:39 Approved by: Anuj Bautista M.D. on 04/30/2023 at 16:40
[2023-04-30 16:29] LABS: Add Manual Diff / Slide Review NO; Basophils Absolute Auto 100 /uL (0-100); Basophils Percent Auto 1.1 % (0-2); Eosinophils Absolute Auto 300 /uL (0-450); Eosinophils Percent Auto 4.7 % (2-4); Hematocrit 37.5 % (36-46); Lymphocytes Absolute Auto 2000 /uL (1100-4500); Lymphocytes Percent Auto 29.6 % (25-40); Mean Corpuscular HGB Conc 34.6 % (30-36); Mean Corpuscular Volume 89.8 fL (80-100); Monocytes Absolute Auto 400 /uL (0-900); Monocytes Percent Auto 6.3 % (3-14); Neutrophils Absolute Auto 3900 /uL (1500-7000); Neutrophils Percent Auto 58.3 % (50-75); Platelet Count 193 X10^3/uL (150-400); Red Blood Cell Count 4.18 X10^6/uL (4.0-5.2); Red Cell Distribution Width 12.6 % (11.6-14.8); White Blood Cell Count 6.6 X10^3/uL (4.5-11.0)
[2023-04-30] MEDS: SODIUM CHLORIDE 0.9% 1,000 ML 1000 ML IV (16:36)
[2023-04-30] MEDS: METOCLOPRAMIDE 10 MG/2 ML INJ IV (16:37)
[2023-04-30] MEDS: diphenhydrAMINE 50 MG/ML VIAL 25 MG IV (16:37)
[2023-04-30 16:44] LABS: BUN Creatinine Ratio 27.4 (6-22); Blood Urea Nitrogen 17 mg/dL (7-17); Calcium 9.2 mg/dL (8.4-10.2); Carbon Dioxide 28 mmol/L (22-32); Chloride 100 mmol/L (98-107); Estimated Glomerular Filt Rate > 60 mL/min (>60); Glucose 102 mg/dL (80-110); HEMOLYSIS < 15 (0-50); Sodium 135 mmol/L (137-145)
[2023-04-30] MEDS: KETOROLAC 30 MG/ML VIAL IV (17:45)
[2023-04-30] MEDS: SUMAtriptan 25 MG TABLET PO (18:14)
== END 2023-04-30 18:58 | disposition home or self-care (01) ==
PROVIDERS: Emergency Provider Emergency Medicine
DX: R51.9 Headache, unspecified (principal)
CPT/HCPCS: 36415; 70450; 80048; 81003; 85025; 96361; 96374; 96375; 99284; J1200; J1885; J2765

== ENCOUNTER → 2023-09-26 11:27 | Outpatient (CLI) | payer MEDICARE, OTHER, SELFPAY ==
[2022-06-27 15:39] VITALS: BMI 27.3
[2023-09-26 12:40] LABS: Add Manual Diff / Slide Review NO; Basophils Absolute Auto 100 /uL (0-100); Eosinophils Absolute Auto 300 /uL (0-450); Hematocrit 40.1 % (36-46); Hemoglobin 13.4 g/dL (12.0-16.0); Lymphocytes Absolute Auto 1800 /uL (1100-4500); Lymphocytes Percent Auto 28.2 % (25-40); Mean Corpuscular HGB Conc 33.6 % (30-36); Mean Corpuscular Hemoglobin 30.6 PG (26-34); Monocytes Absolute Auto 400 /uL (0-900); Monocytes Percent Auto 6.1 % (3-14); Neutrophils Absolute Auto 3800 /uL (1500-7000); Neutrophils Percent Auto 60.7 % (50-75); Platelet Count 210 X10^3/uL (150-400); Red Cell Distribution Width 12.9 % (11.6-14.8); White Blood Cell Count 6.3 X10^3/uL (4.5-11.0)
[2023-09-26 12:57] LABS: Hemoglobin A1C% w Est Avg Glu 6.4 % (4.0-6.0)
[2023-09-26 13:10] LABS: BUN Creatinine Ratio 27.4 (6-22); Blood Urea Nitrogen 20 mg/dL (7-17); Calcium 9.7 mg/dL (8.4-10.2); Carbon Dioxide 31 mmol/L (22-32); Chloride 102 mmol/L (98-107); Cholesterol 273 mg/dL (140-199); Estimated Glomerular Filt Rate > 60 mL/min (>60); Glucose 108 mg/dL (80-110); HDL Cholesterol 69 mg/dL (40-60); HEMOLYSIS < 15 (0-50); LDL Cholesterol Calculated 166 mg/dL (<100); Potassium 4.6 mmol/L (3.4-5.1); Sodium 138 mmol/L (137-145); Triglycerides 191 mg/dL (35-150)
== END ==
PROVIDERS: PCP Nurse Practitioner Gerontology; Referring Provider Nurse Practitioner Gerontology; Visit Provider Nurse Practitioner Gerontology
DX: E78.5 Hyperlipidemia, unspecified (principal); R73.01 Impaired fasting glucose; Z13.1 Encounter for screening for diabetes mellitus
CPT/HCPCS: 36415; 80048; 80061; 83036; 85025

== ENCOUNTER → 2023-12-23 13:44 | Outpatient (CLI) | payer MEDICARE, OTHER, SELFPAY ==
[2023-12-04 14:08] VITALS: BMI 27.3
--- NOTE | 2023-12-23 13:46 | DI.MRI.S_ITS ---
PROCEDURE: MR LUMBAR SPINE WO CON INDICATIONS: Spinal stenosis, lumbar region TECHNIQUE: Noncontrast sagittal T1 spin echo and T2 fast echo, sagittal STIR, and T2 fast spin echo through the lumbar spine. In cases with scoliosis, additional coronal T2 fast spin echo may be performed. COMPARISON: [facility], MR, MR LUMBAR SPINE WO CON, 06/16/2021, 12:39. FINDINGS: Image quality: Excellent. Alignment and Curvature: S-shaped curvature of the thoracolumbar spine, with apex at L4 and L2. Grade 1 retrolisthesis of T12 on L1. Grade 1 anterolisthesis of L4 on L5. Bone Marrow: Marrow is of normal overall signal. No acute vertebral body compression fractures. Spinal Cord: Conus medullaris terminates at the L1 level. Visualized cord demonstrates normal signal and size. Paraspinous Soft Tissues: No paravertebral masses. T12-L1: Moderate disc height loss with disc bulge, facet hypertrophy, mild right neural foraminal narrowing. L1-L2: Disc desiccation, broad-based disc bulge, facet hypertrophy, right greater than left and left-sided facet effusion. Mild bilateral neural foraminal narrowing. L2-L3: Disc desiccation, broad-based disc bulge, facet hypertrophy. Mild left neural foraminal narrowing. L3-L4: Disc desiccation, broad-based disc bulge, facet hypertrophy resulting in moderate spinal canal narrowing and mild bilateral neural foraminal narrowing. L4-L5: Disc desiccation, broad-based disc bulge, severe facet hypertrophy moderate spinal canal narrowing. L5-S1: Disc desiccation, broad-based disc bulge, bilateral facet hypertrophy. IMPRESSION: S-shaped curvature of the thoracolumbar spine, similar to prior. Multilevel degenerative disc disease and facet arthrosis, most prominent at L4-5 with moderate spinal canal narrowing and mild bilateral neural foraminal narrowing. Minimal interval progression since 2020. Dictated by: Christiano Rondon M.D. on 12/24/2023 at 10:07 Approved by: Christiano Rondon M.D. on 12/24/2023 at 10:18
== END ==
PROVIDERS: PCP Nurse Practitioner Gerontology; Referring Provider Physical Medicine & Rehabilitation; Visit Provider Physical Medicine & Rehabilitation
DX: M48.062 Spinal stenosis, lumbar region with neurogenic claudication (principal); M51.36 Other intervertebral disc degeneration, lumbar region; M51.37 Other intervertebral disc degeneration, lumbosacral region; M47.816 Spondylosis without myelopathy or radiculopathy, lumbar region; M47.817 Spondylosis without myelopathy or radiculopathy, lumbosacral region
CPT/HCPCS: 72148

== ENCOUNTER 2024-03-07 14:00 | Emergency (ER) | payer OTHER, SELFPAY ==
[2023-12-04 14:08] VITALS: BMI 27.3
[2024-03-07 14:02] VITALS: BP 146/70; PULSE 65; RESP 15; TEMP 36.1; O2SAT 100; BMI 31.4
--- NOTE | 2024-03-07 14:27 | DI.CT.S_ITS ---
PROCEDURE: CT ANGIO HEAD AND NECK INDICATIONS: NAVARRETE/SLURRED SPEECH YESTERDAY TECHNIQUE: After the administration of intravenous contrast, 1 mm thick sections acquired from the aortic arch through the [place]. 3-dimensional qwpbcnb-coqzovuhx-kukpdzcqdu (MIP) and/or volume rendering reformats were acquired of the central intracranial vasculature and neck separately. For radiation dose reduction, the following was used: automated exposure control, adjustment of mA and/or kV according to patient size. COMPARISON: [facility], CT, CT ANGIO HEAD AND NECK, 04/03/2023, 17:28. FINDINGS: Image quality: Diagnostic. BRAIN: CSF spaces: Ventricles are normal in size and shape. Basal cisterns are patent. No extra-axial fluid collections. Brain: No significant abnormality of the brain can be seen. Skull and face: Calvarium and facial bones appear intact, without suspicious lesions. Orbits appear normal. Sinuses: Sinuses and mastoids are clear. HEAD CT ANGIOGRAPHY: Anterior circulation: Intracranial internal carotid arteries are normal in size and flow. The flow within the paired anterior cerebral arteries is normal and symmetric. The flow within the middle cerebral arteries is normal and symmetric. The anterior communicating artery is seen. No aneurysms are seen. Posterior circulation: Visualized portions of the vertebral arteries demonstrate normal caliber, and join to form a normal appearing basilar artery. Flow within the posterior cerebral arteries is normal and symmetric. No aneurysms are seen. NECK CT ANGIOGRAPHY: Carotid system: The great vessels demonstrate a conventional anatomy as they arise from the aortic arch. The origins of the common carotid arteries appear patent. The common carotid arteries demonstrate normal caliber and courses. The bifurcation regions are both widely patent. The internal carotid arteries demonstrate normal calibers and courses. Posterior circulation: The origins of the vertebral arteries both appear widely patent. The more superior extracranial portions of both vertebral arteries also demonstrate normal courses and calibers. They join to form a normal appearing basilar artery. Soft tissues: Visualized neck soft tissues demonstrate no suspicious abnormalities. Bones: No suspicious bony lesions. Visualized cervical spine appears normally aligned. IMPRESSION: No significant intracranial arterial abnormality is seen. No significant abnormality is seen within the arteries of the neck. Any quantitative measurements of stenosis were performed using NASCET criteria. Dictated by: Rick Otero M.D. on 03/07/2024 at 16:43 Approved by: Rick Otero M.D. on 03/07/2024 at 16:44
--- NOTE | 2024-03-07 14:28 | DI.CT.S_ITS ---
PROCEDURE: CT HEAD/BRAIN WO CON INDICATIONS: NAVARRETE/HX MIGRAINES TECHNIQUE: Noncontrast 4.5 mm thick angled axial sections acquired from the foramen magnum to the vertex, with coronal and sagittal reformats. For radiation dose reduction, the following was used: automated exposure control, adjustment of mA and/or kV according to patient size. COMPARISON: [facility], CT, CT HEAD/BRAIN WO CON, 04/30/2023, 16:27. [facility], CT, CT HEAD/BRAIN WO CON, 12/08/2022, 20:48. FINDINGS: Image quality: Diagnostic. CSF spaces: Basal cisterns are patent. No extra-axial fluid collections. The ventricles are symmetric in size and shape. Brain: No intracranial bleeds or masses. There is cerebral volume loss for age, with resultant ventricular and sulcal prominence. There are periventricular and deep white matter chronic small vessel ischemic changes. There is intracranial internal carotid artery atherosclerosis. Skull and face: Calvarium and visualized facial bones appear intact, without suspicious lesions. Sinuses: Visualized sinuses and mastoids are clear. IMPRESSION: No acute intracranial pathology. Dictated by: Rick Otero M.D. on 03/07/2024 at 16:42 Approved by: Rick Otero M.D. on 03/07/2024 at 16:42
--- NOTE | 2024-03-07 14:30 | ED.HA ---
HPI - Headache General Chief Complaint: Headache Stated Complaint: headache Time Seen by Provider: 03/07/24 14:13 Mode of arrival: Ambulatory History of Present Illness HPI Narrative: 73-year-old female with history of migraine headaches presents with headache. Patient states that she woke up yesterday morning with a headache and some slight slurred speech. Patient states that she was evaluated for the same 1 year ago and was told that she had a mild stroke, however brain MRI from 04/03/2023 showed no acute or subacute infarct. Patient states that she was in denial yesterday and did not seek emergency care at that time, but today when her headache persisted she decided to present to the ER for evaluation. She takes ubrelvy for migraines, she was pending a neurologist appointment in March Related Data Home Medications Medication Instructions Recorded Confirmed albuterol sulfate 90 mcg/actuation 2 puff inhalation Q4-6H PRN 07/27/20 06/27/22 aerosol inhaler Shortness Of Breath atorvastatin 40 mg tablet 40 mg PO DAILY 07/27/20 06/27/22 diclofenac sodium 1 % topical gel 2 g topical BID PRN Pain 07/27/20 06/27/22 (Voltaren) fluticasone propionate 50 1 spray intranasal BID 07/27/20 06/27/22 mcg/actuation nasal spray,suspension gabapentin 300 mg capsule 600 mg PO TID 07/27/20 06/27/22 loratadine 10 mg capsule 10 mg PO DAILY 07/27/20 06/27/22 mirabegron 25 mg tablet,extended 25 mg PO DAILY 07/27/20 06/27/22 release 24 hr (Myrbetriq) mometasone 200 mcg/actuation HFA 1 puff inhalation BID 07/27/20 06/27/22 aerosol inhaler (Asmanex HFA) naproxen 500 mg tablet 500 mg PO BID PRN Pain 07/27/20 06/27/22 omeprazole 40 mg capsule,delayed 40 mg PO BID 07/27/20 06/27/22 release propranolol 20 mg tablet 20 mg PO BEDTIME 07/27/20 06/27/22 aspirin 81 mg tablet,delayed 81 mg PO Q OTHER DAY 06/14/22 06/27/22 release dicyclomine 10 mg capsule 10 mg PO BID PRN GI upset 06/15/22 06/27/22 melatonin 3 mg tablet 3 mg PO BEDTIME 06/15/22 06/27/22 sertraline 100 mg tablet 150 mg PO BEDTIME 06/15/22 06/27/22 Previous Rx's Medication Instructions Recorded acetaminophen 325 mg tablet 650 mg (2 x 325 mg) PO Q6HR #240 06/29/22 tabs aspirin 81 mg tablet,delayed 81 mg PO BID #90 tabs 06/29/22 release docusate sodium 100 mg capsule 100 mg PO BID PRN constipation #60 06/29/22 caps oxycodone 5 mg tablet 5 mg PO Q4-6H PRN Pain, Moderate 06/29/22 (4-6) #60 tabs sumatriptan succinate 25 mg tablet See Rx Instructions PO .COMPLEX 04/30/23 (Imitrex) #12 tabs Allergies Allergy/AdvReac Type Severity Reaction Status Date / Time almond Allergy Severe Tongue, Verified 03/07/24 14:06 throat swelling banana Allergy Severe Throat Verified 03/07/24 14:06 closes shrimp Allergy Severe Throat Verified 03/07/24 14:06 closes latex Allergy Intermediate Rash Verified 03/07/24 14:06 iodine Allergy Mild Rash - Verified 03/07/24 14:06 Topical only neoprene Allergy Intermediate Rash Uncoded 04/03/23 16:05 Review of Systems Review of Systems Narrative: See HPI Patient History Medical History Hypoglycemia COVID-19 virus infection Celiac disease (2021) Dunham's palsy Right wrist fracture (05/2020) Anxiety Sensitive skin Easy bruisability Hammer toe of right foot Back pain Overactive bladder Ovarian cancer GERD (gastroesophageal reflux disease) Rabies exposure (06/2020) Suicidal ideation Colon polyps Melanoma Asthma Depression IBS (irritable bowel syndrome) HLD (hyperlipidemia) Osteoarthritis Blackman's esophagus without dysplasia Allergic rhinitis Migraine headache Eczema PTSD (post-traumatic stress disorder) Surgical History History of arthroplasty of right knee (08/10/20) History of bunionectomy of both great toes Hx of left knee surgery Hx of tonsillectomy History of right oophorectomy Hx of bilateral cataract extraction History of bilateral breast implants Social History household members: none Smoking Status: Never smoker alcohol intake: current Smoking Status: Never smoker alcohol intake frequency: holidays/special occasions only Substance Use Type: marijuana Exam Initial Vital Signs Initial Vital Signs: Vital Signs Temperature 97.0 F L 03/07/24 14:02 Pulse Rate 65 03/07/24 14:02 Respiratory Rate 15 03/07/24 14:02 Blood Pressure 146/70 H 03/07/24 14:02 Pulse Oximetry 100 03/07/24 14:02 Oxygen Delivery Method Room Air 03/07/24 14:02 Const: Awake, alert, no acute distress, nontoxic appearing Cardiac: regular rate, regular rhythm RESP: unlabored, clear bilaterally, no wheezing GI: Soft, nontender, nondistended, no rebound, no guarding MSK: Atraumatic, full range of motion, pulses equal Skin: Warm, Dry, intact, no rashes Neuro: AO x3, CN II-XII grossly intact, speech normal, moves all extremities, no weakness Course Orders Ordered: Discontinued Medications Diphenhydramine HCl (Diphenhydramine 50 Mg/Ml Vial) 50 mg IV NOW ONE Stop: 03/07/24 14:28 Last Admin: 03/07/24 15:37 Dose: 50 mg Documented By: VIPIN Metoclopramide HCl (Metoclopramide 10 Mg/2 Ml Inj) 10 mg IV NOW ONE Stop: 03/07/24 14:28 Last Admin: 03/07/24 15:36 Dose: 10 mg Documented By: VIPIN Vital Signs Vital signs: Vital Signs - 8 hr 03/07/24 14:02 03/07/24 17:20 Temperature 97.0 F L Pulse Rate 65 64 Respiratory Rate 15 20 Blood Pressure 146/70 H 165/70 H Pulse Oximetry 100 97 Oxygen Delivery Method Room Air Room Air MDM - Headache Differential Diagnosis Differential diagnosis: Likely migraine, tension headache and subarachnoid hemorrhage Lab Data 03/07/24 15:35 03/07/24 15:35 Labs: Lab Results 03/07/24 Range/Units 15:35 WBC 6.5 (4.5-11.0) X10^3/uL RBC 4.23 (4.0-5.2) X10^6/uL Hgb 13.2 (12.0-16.0) g/dL Hct 39.3 (36-46) % MCV 92.9 (80-100) fL MCH 31.2 (26-34) PG MCHC 33.5 (30-36) % RDW 12.5 (11.6-14.8) % Plt Count 198 (150-400) X10^3/uL Neut % (Auto) 58.4 (50-75) % Lymph % (Auto) 29.9 (25-40) % [place] % (Auto) 6.4 (3-14) % Eos % (Auto) 4.6 H (2-4) % Baso % (Auto) 0.7 (0-2) % Neut # (Auto) 3800 (7315-7724) /uL Lymph # (Auto) 2000 (7033-1806) /uL [place] # (Auto) 400 (0-900) /uL Eos # (Auto) 300 (0-450) /uL Baso # (Auto) 0 (0-100) /uL Sodium 140 (137-145) mmol/L Potassium 3.8 (3.4-5.1) mmol/L Chloride 105 (98-107) mmol/L Carbon Dioxide 29 (22-32) mmol/L BUN 15 (7-17) mg/dL Creatinine 0.64 (0.52-1.04) mg/dL Estimated GFR > 60 (>60) mL/min BUN/Creatinine Ratio 23.4 H (6-22) Glucose 94 (80-110) mg/dL Calcium 9.3 (8.4-10.2) mg/dL Magnesium 2.5 H (1.6-2.3) mg/dL Total Bilirubin 0.8 (0.2-1.3) mg/dL AST 33 (14-36) IU/L ALT 27 (<35) IU/L Alkaline Phosphatase 87 (38-126) U/L Total Creatine Kinase 64 (30-135) U/L Troponin I < 0.012 (0.01-0.034) ng/mL Total Protein 8.0 (6.3-8.2) g/dL Albumin 4.8 (3.5-5.0) g/dL Globulin 3.2 (1.7-4.1) g/dL Albumin/Globulin Ratio 1.5 (1.0-2.8) Imaging Data CT scan - head: Radiologist's Impression: PROCEDURE: CT HEAD/BRAIN WO CON INDICATIONS: NAVARRETE/HX MIGRAINES TECHNIQUE: Noncontrast 4.5 mm thick angled axial sections acquired from the foramen magnum to the vertex, with coronal and sagittal reformats. For radiation dose reduction, the following was used: automated exposure control, adjustment of mA and/or kV according to patient size. COMPARISON: [facility], CT, CT HEAD/BRAIN WO CON, 04/30/2023, 16:27. [facility], CT, CT HEAD/BRAIN WO CON, 12/08/2022, 20:48. FINDINGS: Image quality: Diagnostic. CSF spaces: Basal cisterns are patent. No extra-axial fluid collections. The ventricles are symmetric in size and shape. Brain: No intracranial bleeds or masses. There is cerebral volume loss for age, with resultant ventricular and sulcal prominence. There are periventricular and deep white matter chronic small vessel ischemic changes. There is intracranial internal carotid artery atherosclerosis. Skull and face: Calvarium and visualized facial bones appear intact, without suspicious lesions. Sinuses: Visualized sinuses and mastoids are clear. IMPRESSION: No acute intracranial pathology. Dictated by: Rick Otero M.D. on 03/07/2024 at 16:42 Approved by: Rick Otero M.D. on 03/07/2024 at 16:42 CTA - brain/neck: Radiologist's Impression: PROCEDURE: CT ANGIO HEAD AND NECK INDICATIONS: NAVARRETE/SLURRED SPEECH YESTERDAY TECHNIQUE: After the administration of intravenous contrast, 1 mm thick sections acquired from the aortic arch through the [place]. 3-dimensional hknjurc-dqncjnuix-jdlmrrcuoe (MIP) and/or volume rendering reformats were acquired of the central intracranial vasculature and neck separately. For radiation dose reduction, the following was used: automated exposure control, adjustment of mA and/or kV according to patient size. COMPARISON: [facility], CT, CT ANGIO HEAD AND NECK, 04/03/2023, 17:28. FINDINGS: Image quality: Diagnostic. BRAIN: CSF spaces: Ventricles are normal in size and shape. Basal cisterns are patent. No extra-axial fluid collections. Brain: No significant abnormality of the brain can be seen. Skull and face: Calvarium and facial bones appear intact, without suspicious lesions. Orbits appear normal. Sinuses: Sinuses and mastoids are clear. HEAD CT ANGIOGRAPHY: Anterior circulation: Intracranial internal carotid arteries are normal in size and flow. The flow within the paired anterior cerebral arteries is normal and symmetric. The flow within the middle cerebral arteries is normal and symmetric. The anterior communicating artery is seen. No aneurysms are seen. Posterior circulation: Visualized portions of the vertebral arteries demonstrate normal caliber, and join to form a normal appearing basilar artery. Flow within the posterior cerebral arteries is normal and symmetric. No aneurysms are seen. NECK CT ANGIOGRAPHY: Carotid system: The great vessels demonstrate a conventional anatomy as they arise from the aortic arch. The origins of the common carotid arteries appear patent. The common carotid arteries demonstrate normal caliber and courses. The bifurcation regions are both widely patent. The internal carotid arteries demonstrate normal calibers and courses. Posterior circulation: The origins of the vertebral arteries both appear widely patent. The more superior extracranial portions of both vertebral arteries also demonstrate normal courses and calibers. They join to form a normal appearing basilar artery. Soft tissues: Visualized neck soft tissues demonstrate no suspicious abnormalities. Bones: No suspicious bony lesions. Visualized cervical spine appears normally aligned. IMPRESSION: No significant intracranial arterial abnormality is seen. No significant abnormality is seen within the arteries of the neck. Any quantitative measurements of stenosis were performed using NASCET criteria. Dictated by: Rick Otero M.D. on 03/07/2024 at 16:43 Approved by: iRck Otero M.D. on 03/07/2024 at 16:44 MDM Narrative Medical decision making narrative: More than 24 hours of headache and brief episode of slurred speech yesterday. NIH of 0 on arrival, there are no focal deficits on exam. Speech is clear and articulate, there was no weakness, numbness, ataxia. I have less suspicion for TIA at this time, rather suspect that this is secondary to patient's migraines. We will order CT and CT angio. Laboratory work is reviewed, WBC count 6.5, hemoglobin 13.2, platelets 198, sodium 140, potassium 3.8, creatinine 0.64, magnesium 2.5, normal liver enzymes. CT noncontrast of the brain and CT angio showed no acute findings. Since symptoms had been present more than 24 hours ago I would expect that a deficit would show up on CT. Patient feeling somewhat better after headache cocktail. Patient has pending neurology appointment in April. Patient counseled on lab and imaging findings, she was relieved to know that her CTs are normal. She was counseled to continue her usual migraine medications and to follow up with Neurology as scheduled. Discharge Plan Departure Patient Disposition: Home Clinical Impression: Headache Instructions: DI for Migraine Activity Restrictions/Additional Instructions: Follow up with Neurology as scheduled. Continue to take all your other medications as prescribed. There was no evidence of stroke today on your CT imaging. Prescriptions: No Action aspirin 81 mg tablet,delayed release (DR/EC) 81 mg PO Q OTHER DAY sertraline 100 mg Tablet 150 mg PO BEDTIME melatonin 3 mg Tablet 3 mg PO BEDTIME dicyclomine 10 mg Capsule 10 mg PO BID PRN (Reason: GI upset) acetaminophen 325 mg Tablet 650 mg PO Q6HR Qty: 240 1RF aspirin 81 mg Tablet,Delayed Release (Dr/Ec) 81 mg PO BID Qty: 90 0RF docusate sodium 100 mg Capsule 100 mg PO BID PRN (Reason: constipation) Qty: 60 2RF oxycodone 5 mg Tablet 5 mg PO Q4-6H PRN (Reason: Pain, Moderate (4-6)) Qty: 60 0RF atorvastatin 40 mg Tablet 40 mg PO DAILY omeprazole 40 mg Capsule,Delayed Release(Dr/Ec) 40 mg PO BID gabapentin 300 mg Capsule 600 mg PO TID propranolol 20 mg Tablet 20 mg PO BEDTIME fluticasone propionate 50 mcg/actuation [place],Suspension 1 spray INTRANASAL BID naproxen 500 mg Tablet 500 mg PO BID PRN (Reason: Pain) diclofenac sodium [Voltaren] 1 % Gel 2 g TOPICAL BID PRN (Reason: Pain) loratadine 10 mg Capsule 10 mg PO DAILY Myrbetriq 25 mg Tablet Extended Release 24 Hr 25 mg PO DAILY Patient Comments: for bladder incontinence Asmanex HFA 200 mcg/actuation Hfa Aerosol Inhaler 1 puff INHALATION BID albuterol sulfate 90 mcg/actuation Hfa Aerosol Inhaler 2 puff INHALATION Q4-6H PRN (Reason: Shortness Of Breath) sumatriptan succinate [Imitrex] 25 mg tablet See Rx Instructions .ROUTE .COMPLEX Qty: 12 0RF Rx Instructions: take 1 tab at onset of headache; if no relief may repeat 1 tab after at least 2 hrs; max = 4 tabs/24 hr Referrals: Mary Ribeiro ARNP [Primary Care Provider] - Stand Alone Forms: Patient Portal/API
[2024-03-07] MEDS: METOCLOPRAMIDE 10 MG/2 ML INJ IV (15:36)
[2024-03-07] MEDS: diphenhydrAMINE 50 MG/ML VIAL IV (15:37)
[2024-03-07 15:49] LABS: Add Manual Diff / Slide Review NO; Basophils Absolute Auto 0 /uL (0-100); Basophils Percent Auto 0.7 % (0-2); Eosinophils Absolute Auto 300 /uL (0-450); Eosinophils Percent Auto 4.6 % (2-4); Hematocrit 39.3 % (36-46); Hemoglobin 13.2 g/dL (12.0-16.0); Lymphocytes Absolute Auto 2000 /uL (1100-4500); Lymphocytes Percent Auto 29.9 % (25-40); Mean Corpuscular HGB Conc 33.5 % (30-36); Mean Corpuscular Hemoglobin 31.2 PG (26-34); Mean Corpuscular Volume 92.9 fL (80-100); Monocytes Absolute Auto 400 /uL (0-900); Monocytes Percent Auto 6.4 % (3-14); Neutrophils Absolute Auto 3800 /uL (1500-7000); Neutrophils Percent Auto 58.4 % (50-75); Platelet Count 198 X10^3/uL (150-400); Red Blood Cell Count 4.23 X10^6/uL (4.0-5.2); Red Cell Distribution Width 12.5 % (11.6-14.8); White Blood Cell Count 6.5 X10^3/uL (4.5-11.0)
[2024-03-07 16:02] LABS: Alanine Aminotransferase 27 IU/L (<35); Albumin 4.8 g/dL (3.5-5.0); Albumin Globulin Ratio 1.5 (1.0-2.8); Alkaline Phosphatase 87 U/L (38-126); Aspartate Aminotransferase 33 IU/L (14-36); BUN Creatinine Ratio 23.4 (6-22); Bilirubin Total 0.8 mg/dL (0.2-1.3); Blood Urea Nitrogen 15 mg/dL (7-17); Calcium 9.3 mg/dL (8.4-10.2); Carbon Dioxide 29 mmol/L (22-32); Chloride 105 mmol/L (98-107); Creatine Kinase 64 U/L (30-135); Estimated Glomerular Filt Rate > 60 mL/min (>60); Globulin 3.2 g/dL (1.7-4.1); Glucose 94 mg/dL (80-110); HEMOLYSIS < 15 (0-50); Magnesium 2.5 mg/dL (1.6-2.3); Potassium 3.8 mmol/L (3.4-5.1); Sodium 140 mmol/L (137-145)
[2024-03-07 16:13] LABS: Troponin I < 0.012 ng/mL (0.01-0.034)
--- NOTE | 2024-03-07 17:08 | PC.NURSE ---
Pt ambulates to bathroom with stand by assist. A&Ox3. Neuro intact. VS WNL
[2024-03-07 17:20] VITALS: BP 165/70; PULSE 64; RESP 20; O2SAT 97
== END 2024-03-07 17:22 | disposition home or self-care (01) ==
PROVIDERS: Emergency Provider Emergency Medicine; PCP Nurse Practitioner Gerontology
DX: R51.9 Headache, unspecified (principal); R47.81 Slurred speech; Z79.899 Other long term (current) drug therapy
CPT/HCPCS: 36415; 70450; 70496; 70498; 80053; 82550; 83735; 84484; 85025; 93005; 96374; 96375; 99284; J1200; J2765; Q9967

== ENCOUNTER → 2024-04-19 13:39 | Outpatient (CLI) | payer OTHER, SELFPAY ==
[2023-12-04 14:08] VITALS: BMI 27.3
--- NOTE | 2024-04-19 13:43 | DI.MRI.S_ITS ---
PROCEDURE: MR HEAD/BRAIN WO CON INDICATIONS: headaches TECHNIQUE: Non-contrast axial T1 spin echo, axial T2 fast spin echo, sagittal and axial FLAIR, coronal T2 fast spin echo, axial gradient echo, axial diffusion and ADC through the brain. COMPARISON: [facility], CT, CT HEAD/BRAIN WO CON, 03/07/2024, 16:12. [facility], CT, CT ANGIO HEAD AND NECK, 03/07/2024, 16:12. CT, CT HEAD/BRAIN WO CON, 04/30/2023, 16:27. [facility], MR, MR HEAD/BRAIN WO CON, 04/03/2023, 18:44. CT, CT ANGIO HEAD AND NECK, 04/03/2023, 17:28. FINDINGS: Image quality: Excellent. CSF spaces: Ventricles appear symmetric in size and shape. Basal cisterns are patent. No extra-axial fluid collections. Brain: No intracranial bleeds or mass effects. There is cerebral volume loss for age. There are periventricular and deep white matter chronic small vessel ischemic changes. Brainstem appears normal. Diffusion-weighted images show no acute infarct. No chronic ischemic insults. Normal intravascular flow voids are present. Skull and face: Calvarial bone marrow is normal in signal. Orbits are normal. Sinuses: Sinuses and mastoids are clear. IMPRESSION: 1. No acute intracranial process. 2. Mild atrophy and chronic microvascular ischemic changes. Dictated by: Aleja Mackay M.D. on 04/21/2024 at 9:48 Approved by: Aleja Mackay M.D. on 04/21/2024 at 9:51
== END ==
PROVIDERS: PCP Nurse Practitioner Gerontology; Referring Provider Nurse Practitioner Gerontology; Visit Provider Nurse Practitioner Gerontology
DX: R51.9 Headache, unspecified (principal)
CPT/HCPCS: 70551

== ENCOUNTER 2024-12-05 16:07 | Emergency (ER) | payer OTHER, SELFPAY ==
[2023-12-04 14:08] VITALS: BMI 27.3
[2024-12-05 16:10] VITALS: BP 143/70; PULSE 73; RESP 20; TEMP 36.4; O2SAT 95; BMI 29.9
--- NOTE | 2024-12-05 16:23 | DI.RAD.S_ITS ---
PROCEDURE: XR CHEST 1V INDICATIONS: altered mental status TECHNIQUE: One view of the chest was acquired. COMPARISON: [facility], CR, XR CHEST 1V, 04/03/2023, 16:24. FINDINGS: Surgical changes and devices: None. Lungs and pleura: Lungs are clear. No pleural effusions or pneumothorax. Mediastinum: Mediastinal contours appear normal. Heart size is normal. Bones and chest wall: No suspicious bony lesions. Overlying soft tissues appear unremarkable. IMPRESSION: No acute cardiopulmonary abnormality is seen. Dictated by: Rick Otero M.D. on 12/05/2024 at 16:49 Approved by: Rick Otero M.D. on 12/05/2024 at 16:49
--- NOTE | 2024-12-05 16:29 | EKG_ITS ---
[address] [address] Test Date: 2024-12-05 Pat Name: Vivi Peña Department: Room: Gender: Female [employer]ination Building Inspector: GAVIN : 1950 Requested By: Order Number: [id number] Reading MD: Gui Perry Measurements Intervals [place] Rate: 67 P: 38 CT: 154 QRS: -8 QRSD: 72 T: 28 QT: 418 QTc: 441 Interpretive Statements Normal sinus rhythm Minimal voltage criteria for LVH, may be normal variant ( R in aVL ) Electronically Signed On 12-06-2024 8:00:12 PST by Gui Perry
--- NOTE | 2024-12-05 16:31 | DI.CT.S_ITS ---
PROCEDURE: CT HEAD/BRAIN WO CON INDICATIONS: slurred speech x 1 week TECHNIQUE: Noncontrast 4.5 mm thick angled axial sections acquired from the foramen magnum to the vertex, with coronal and sagittal reformats. For radiation dose reduction, the following was used: automated exposure control, adjustment of mA and/or kV according to patient size. COMPARISON: [facility], CT, CT HEAD/BRAIN WO CON, 03/07/2024, 16:12. [facility], CT, CT HEAD/BRAIN WO CON, 04/30/2023, 16:27. FINDINGS: Image quality: Diagnostic. CSF spaces: Basal cisterns are patent. No extra-axial fluid collections. The ventricles are symmetric in size and shape. Brain: No intracranial bleeds or masses. There is cerebral volume loss for age, with resultant ventricular and sulcal prominence. There are periventricular and deep white matter chronic small vessel ischemic changes. There is intracranial internal carotid artery atherosclerosis. Skull and face: Calvarium and visualized facial bones appear intact, without suspicious lesions. Sinuses: Visualized sinuses and mastoids are clear. IMPRESSION: No acute intracranial pathology. Dictated by: Rick Otero M.D. on 12/05/2024 at 16:50 Approved by: Rick Otero M.D. on 12/05/2024 at 16:50
[2024-12-05 17:26] LABS: Add Manual Diff / Slide Review NO; Basophils Absolute Auto 100 /uL (0-100); Basophils Percent Auto 0.7 % (0-2); Eosinophils Absolute Auto 300 /uL (0-450); Eosinophils Percent Auto 3.1 % (2-4); Hemoglobin 14.1 g/dL (12.0-16.0); Lymphocytes Absolute Auto 1800 /uL (1100-4500); Lymphocytes Percent Auto 20.5 % (25-40); Mean Corpuscular HGB Conc 33.5 % (30-36); Mean Corpuscular Hemoglobin 30.6 PG (26-34); Mean Corpuscular Volume 91.2 fL (80-100); Monocytes Absolute Auto 300 /uL (0-900); Monocytes Percent Auto 3.1 % (3-14); Neutrophils Absolute Auto 6300 /uL (1500-7000); Neutrophils Percent Auto 72.6 % (50-75); Platelet Count 190 X10^3/uL (150-400); Red Cell Distribution Width 13.1 % (11.6-14.8); White Blood Cell Count 8.7 X10^3/uL (4.5-11.0)
[2024-12-05 17:38] LABS: Alanine Aminotransferase 35 IU/L (<35); Albumin Globulin Ratio 1.4 (1.0-2.8); Alkaline Phosphatase 100 U/L (38-126); Aspartate Aminotransferase 41 IU/L (14-36); BUN Creatinine Ratio 19.1 (6-22); Bilirubin Total 0.8 mg/dL (0.2-1.3); Blood Urea Nitrogen 13 mg/dL (7-17); Calcium 9.6 mg/dL (8.4-10.2); Carbon Dioxide 29 mmol/L (22-32); Chloride 103 mmol/L (98-107); Estimated Glomerular Filt Rate > 60 mL/min (>60); Globulin 3.7 g/dL (1.7-4.1); Glucose 99 mg/dL (80-110); HEMOLYSIS 20 (0-50); Potassium 3.9 mmol/L (3.4-5.1); Sodium 140 mmol/L (137-145); Total Protein 8.7 g/dL (6.3-8.2)
[2024-12-05 18:17] LABS: Ammonia (NH3) < 9 umol/L (9-30)
--- NOTE | 2024-12-05 19:24 | ED.NEUROSD ---
HPI - Neuro Symptoms/Deficit General Chief Complaint: Neuro Symptoms/Deficit Stated Complaint: [facility] Time Seen by Provider: 12/05/24 19:24 Source: patient Mode of arrival: Ambulatory History of Present Illness HPI Narrative: 74-year-old female past medical history of stroke on November 2023 [facility] confusion slurred speech ongoing persistent for the past 1 week. Patient states that she also has a history of migraines does have an appointment with her neurologist next week for Botox injections. She states that she is having dull headache today, at time of evaluation patient NIH of 0 no slurred speech no focal deficits. Patient not complaining of any other symptoms such as headache visual disturbances chest pain shortness breath fever chills nausea vomiting abdominal pain or any other GI/ symptoms time. No trauma no falls not on any blood thinners On Anticoagulants: No Related Data Home Medications Medication Instructions Recorded Confirmed albuterol sulfate 90 mcg/actuation 2 puff inhalation Q4-6H PRN 07/27/20 06/27/22 aerosol inhaler Shortness Of Breath atorvastatin 40 mg tablet 40 mg PO DAILY 07/27/20 06/27/22 diclofenac sodium 1 % topical gel 2 g topical BID PRN Pain 07/27/20 06/27/22 (Voltaren) fluticasone propionate 50 1 spray intranasal BID 07/27/20 06/27/22 mcg/actuation nasal spray,suspension gabapentin 300 mg capsule 600 mg PO TID 07/27/20 06/27/22 loratadine 10 mg capsule 10 mg PO DAILY 07/27/20 06/27/22 mirabegron 25 mg tablet,extended 25 mg PO DAILY 07/27/20 06/27/22 release 24 hr (Myrbetriq) mometasone 200 mcg/actuation HFA 1 puff inhalation BID 07/27/20 06/27/22 aerosol inhaler (Asmanex HFA) naproxen 500 mg tablet 500 mg PO BID PRN Pain 07/27/20 06/27/22 omeprazole 40 mg capsule,delayed 40 mg PO BID 07/27/20 06/27/22 release propranolol 20 mg tablet 20 mg PO BEDTIME 07/27/20 06/27/22 aspirin 81 mg tablet,delayed 81 mg PO Q OTHER DAY 06/14/22 06/27/22 release dicyclomine 10 mg capsule 10 mg PO BID PRN GI upset 06/15/22 06/27/22 melatonin 3 mg tablet 3 mg PO BEDTIME 06/15/22 06/27/22 sertraline 100 mg tablet 150 mg PO BEDTIME 06/15/22 06/27/22 Previous Rx's Medication Instructions Recorded acetaminophen 325 mg tablet 650 mg (2 x 325 mg) PO Q6HR #240 06/29/22 tabs aspirin 81 mg tablet,delayed 81 mg PO BID #90 tabs 06/29/22 release docusate sodium 100 mg capsule 100 mg PO BID PRN constipation #60 06/29/22 caps oxycodone 5 mg tablet 5 mg PO Q4-6H PRN Pain, Moderate 06/29/22 (4-6) #60 tabs sumatriptan succinate 25 mg tablet See Rx Instructions PO .COMPLEX 04/30/23 (Imitrex) #12 tabs Allergies Allergy/AdvReac Type Severity Reaction Status Date / Time almond Allergy Severe Tongue, Verified 03/07/24 14:06 throat swelling banana Allergy Severe Throat Verified 03/07/24 14:06 closes shrimp Allergy Severe Throat Verified 03/07/24 14:06 closes latex Allergy Intermediate Rash Verified 03/07/24 14:06 iodine Allergy Mild Rash - Verified 03/07/24 14:06 Topical only neoprene Allergy Intermediate Rash Uncoded 04/03/23 16:05 Review of Systems Review of Systems Narrative: General: Denies fever, chills, weight loss HEENT: Denies headache, eye drainage, eye irritation, head trauma, sore throat, voice change Cardiovascular: Denies any chest pain, palpitations, shortness of breath, tachycardia Respiratory: Denies any shortness of breath, cough, wheeze, stridor GI/: Denies any abdominal pain, nausea, vomiting, diarrhea, bright red blood per rectum, melanotic stools, urinary frequency, urinary retention, dysuria, hematuria MSK: Denies any joint pain, muscle pains, swelling Skin: Denies any rashes, lesions, discoloration Neuro: Positive headache, denies lightheadedness, dizziness, fainting, weakness Psych: Denies SI/HI Hematologic/Lymphatic On Anticoagulants: No Patient History Medical History Hypoglycemia COVID-19 virus infection Celiac disease (2021) Dunham's palsy Right wrist fracture (05/2020) Anxiety Sensitive skin Easy bruisability Hammer toe of right foot Back pain Overactive bladder Ovarian cancer GERD (gastroesophageal reflux disease) Rabies exposure (06/2020) Suicidal ideation Colon polyps Melanoma Asthma Depression IBS (irritable bowel syndrome) HLD (hyperlipidemia) Osteoarthritis Blackman's esophagus without dysplasia Allergic rhinitis Migraine headache Eczema PTSD (post-traumatic stress disorder) Surgical History History of arthroplasty of right knee (08/10/20) History of bunionectomy of both great toes Hx of left knee surgery Hx of tonsillectomy History of right oophorectomy Hx of bilateral cataract extraction History of bilateral breast implants Social History household members: none Smoking Status: Never smoker alcohol intake: current Smoking Status: Never smoker alcohol intake frequency: holidays/special occasions only Exam Narrative Exam Narrative: General: Cooperative, comfortable, well-developed, not in acute distress HEENT: Normocephalic, atraumatic, PERRLA, normal sclera, eyelids normal, Neck: Active full range of motion, atraumatic Chest: Normal to inspection, negative crepitus, no overlying erythema ecchymosis Respiratory: Normal respiratory effort, not in acute respiratory distress, clear to auscultation bilaterally negative cough, wheeze, tachypnea, rhonchi, rales Cardiology: Regular rate rhythm negative gallop, murmur, rubs GI/: Normal to inspection, soft, nonrigid, no tenderness to palpation, exam deferred MSK: Full range of active range of motion of all 4 extremities, atraumatic Skin: No rashes lesions noted Neuro: NIH of 0, answering all questions appropriately following commands no focal deficits Alert awake oriented x3, moves all 4 extremities spontaneously, cranial nerves intact, able to answer all questions appropriately follows commands appropriately Psych: Cooperative, negative suicidal or homicidal ideations Initial Vital Signs Initial Vital Signs: Vital Signs Temperature 97.6 F 12/05/24 16:10 Pulse Rate 73 12/05/24 16:10 Respiratory Rate 20 12/05/24 16:10 Blood Pressure 143/70 H 12/05/24 16:10 Pulse Oximetry 95 12/05/24 16:10 Oxygen Delivery Method Room Air 12/05/24 16:10 Course Orders Ordered: ED Orders 12/05/24 16:23 XR chest 1V Stat Urine Drug Screen, Rapid Stat EKG-12 Lead Stat 12/05/24 16:31 CT head/brain wo con Stat 12/05/24 17:10 Complete Blood Count AUTO DIFF Stat Comprehensive Metabolic Panel Stat 12/05/24 17:58 Ammonia (NH3) Stat Vital Signs Vital signs: Vital Signs - 8 hr 12/05/24 16:10 Temperature 97.6 F Pulse Rate 73 Respiratory Rate 20 Blood Pressure 143/70 H Pulse Oximetry 95 Oxygen Delivery Method Room Air MDM - Neuro Symptoms/Deficit Differential Diagnosis Differential diagnosis: Likely other (Electrolyte abnormality, urinary tract infection, CVA, intracranial hemorrhage) Lab Data 12/05/24 17:10 12/05/24 17:10 Labs: Lab Results 12/05/24 12/05/24 Range/Units 17:10 17:58 WBC 8.7 (4.5-11.0) X10^3/uL RBC 4.60 (4.0-5.2) X10^6/uL Hgb 14.1 (12.0-16.0) g/dL Hct 42.0 (36-46) % MCV 91.2 (80-100) fL MCH 30.6 (26-34) PG MCHC 33.5 (30-36) % RDW 13.1 (11.6-14.8) % Plt Count 190 (150-400) X10^3/uL Neut % (Auto) 72.6 (50-75) % Lymph % (Auto) 20.5 L (25-40) % Knox % (Auto) 3.1 (3-14) % Eos % (Auto) 3.1 (2-4) % Baso % (Auto) 0.7 (0-2) % Neut # (Auto) 6300 (2946-7895) /uL Lymph # (Auto) 1800 (4941-9967) /uL Knox # (Auto) 300 (0-900) /uL Eos # (Auto) 300 (0-450) /uL Baso # (Auto) 100 (0-100) /uL Sodium 140 (137-145) mmol/L Potassium 3.9 (3.4-5.1) mmol/L Chloride 103 (98-107) mmol/L Carbon Dioxide 29 (22-32) mmol/L BUN 13 (7-17) mg/dL Creatinine 0.68 (0.52-1.04) mg/dL Estimated GFR > 60 (>60) mL/min BUN/Creatinine Ratio 19.1 (6-22) Glucose 99 (80-110) mg/dL Calcium 9.6 (8.4-10.2) mg/dL Total Bilirubin 0.8 (0.2-1.3) mg/dL AST 41 H (14-36) IU/L ALT 35 H (<35) IU/L Alkaline Phosphatase 100 (38-126) U/L Ammonia < 9 L (9-30) umol/L Total Protein 8.7 H (6.3-8.2) g/dL Albumin 5.0 (3.5-5.0) g/dL Globulin 3.7 (1.7-4.1) g/dL Albumin/Globulin Ratio 1.4 (1.0-2.8) Imaging Data CT scan - head: Radiologist's Impression: [place] [address] CT Scan Report Signed Patient: Vivi Rowe MR#: [id number] : 1950 Acct:[id number] Age/Sex: 74 / F Date of Service: 12/05/24 Loc: ED Accession Number: [id number] Procedure: CT head/brain wo con Ordering Provider: Adilene Perez D.O. PROCEDURE: CT HEAD/BRAIN WO CON INDICATIONS: slurred speech x 1 week TECHNIQUE: Noncontrast 4.5 mm thick angled axial sections acquired from the foramen magnum to the vertex, with coronal and sagittal reformats. For radiation dose reduction, the following was used: automated exposure control, adjustment of mA and/or kV according to patient size. COMPARISON: [facility], CT, CT HEAD/BRAIN WO CON, 03/07/2024, 16:12. [facility], CT, CT HEAD/BRAIN WO CON, 04/30/2023, 16:27. FINDINGS: Image quality: Diagnostic. CSF spaces: Basal cisterns are patent. No extra-axial fluid collections. The ventricles are symmetric in size and shape. Brain: No intracranial bleeds or masses. There is cerebral volume loss for age, with resultant ventricular and sulcal prominence. There are periventricular and deep white matter chronic small vessel ischemic changes. There is intracranial internal carotid artery atherosclerosis. Skull and face: Calvarium and visualized facial bones appear intact, without suspicious lesions. Sinuses: Visualized sinuses and mastoids are clear. IMPRESSION: No acute intracranial pathology. Chest x-ray: Radiologist's Impression: [address] [address] XRay Report Signed Patient: Vivi Rowe MR#: [id number] : 1950 Acct:[id number] Age/Sex: 74 / F Date of Service: 12/05/24 Loc: ED Accession Number: [id number] Procedure: XR chest 1V Ordering Provider: Adilene Perez D.O. PROCEDURE: XR CHEST 1V INDICATIONS: altered mental status TECHNIQUE: One view of the chest was acquired. COMPARISON: [facility], , XR CHEST 1V, 04/03/2023, 16:24. FINDINGS: Surgical changes and devices: None. Lungs and pleura: Lungs are clear. No pleural effusions or pneumothorax. Mediastinum: Mediastinal contours appear normal. Heart size is normal. Bones and chest wall: No suspicious bony lesions. Overlying soft tissues appear unremarkable. IMPRESSION: No acute cardiopulmonary abnormality is seen. ECG Data Interpretation: EKG interpreted ED physician sinuses 67 beats per minute left axis deviation QTC [address] changes no STEMI MDM Narrative Medical decision making narrative: 74-year-old female history of migraine stroke comes into the ED for evaluation of headache and alleged slurred speech ongoing persistent for the past week. States that she was [facility]. Time of evaluation patient without any focal deficits NIH of 0 no slurred speech noted patient also agrees with this. Patient had CT scan which did not show any intracranial abnormalities. Patient was given migraine cocktail for history of headache with improvement of her symptoms. Patient did have urinalysis without any findings for acute urinary tract infection. Patient's symptoms more likely secondary to her history of migraine headaches. She states she does have an appointment with her neurologist next week, she was re-evaluated before discharge still remaining NIH of 0 no slurred speech no focal deficits she was given strict return precautions verbalized understanding of this and agrees to being discharged home with outpatient follow up. She was instructed follow up with her primary care doctor and neurologist Discharge Plan Departure Patient Disposition: Home Clinical Impression: Headache, migraine Activity Restrictions/Additional Instructions: Please follow up with your neurologist for your scheduled appointment, please follow up with your primary care doctor Please read the discharge instructions sheet carefully and bring all papers to all doctor follow-up visits, as it may contain information that your doctor may want to see. Disease processes change and evolve, if your symptoms worsen or if you develop any new symptoms that are concerning to you please return for evaluation. Your evaluation today does not show any evidence of any life-threatening/serious illnesses requiring admission to the hospital or surgery. Please follow-up with your doctor for re-evaluation in approximately 1 day. Seek immediate medical attention for any worrisome symptoms. *If you do not have a primary care provider please contact the [facility] Resource line at [phone]. They will ask some questions about your medical history and help get you set up with a doctor in the community. Prescriptions: No Action aspirin 81 mg tablet,delayed release (DR/EC) 81 mg PO Q OTHER DAY sertraline 100 mg Tablet 150 mg PO BEDTIME melatonin 3 mg Tablet 3 mg PO BEDTIME dicyclomine 10 mg Capsule 10 mg PO BID PRN (Reason: GI upset) acetaminophen 325 mg Tablet 650 mg PO Q6HR Qty: 240 1RF aspirin 81 mg Tablet,Delayed Release (Dr/Ec) 81 mg PO BID Qty: 90 0RF docusate sodium 100 mg Capsule 100 mg PO BID PRN (Reason: constipation) Qty: 60 2RF oxycodone 5 mg Tablet 5 mg PO Q4-6H PRN (Reason: Pain, Moderate (4-6)) Qty: 60 0RF atorvastatin 40 mg Tablet 40 mg PO DAILY omeprazole 40 mg Capsule,Delayed Release(Dr/Ec) 40 mg PO BID gabapentin 300 mg Capsule 600 mg PO TID propranolol 20 mg Tablet 20 mg PO BEDTIME fluticasone propionate 50 mcg/actuation [place],Suspension 1 spray INTRANASAL BID naproxen 500 mg Tablet 500 mg PO BID PRN (Reason: Pain) diclofenac sodium [Voltaren] 1 % Gel 2 g TOPICAL BID PRN (Reason: Pain) loratadine 10 mg Capsule 10 mg PO DAILY Myrbetriq 25 mg Tablet Extended Release 24 Hr 25 mg PO DAILY Patient Comments: for bladder incontinence Asmanex HFA 200 mcg/actuation Hfa Aerosol Inhaler 1 puff INHALATION BID albuterol sulfate 90 mcg/actuation Hfa Aerosol Inhaler 2 puff INHALATION Q4-6H PRN (Reason: Shortness Of Breath) sumatriptan succinate [Imitrex] 25 mg tablet See Rx Instructions .ROUTE .COMPLEX Qty: 12 0RF Rx Instructions: take 1 tab at onset of headache; if no relief may repeat 1 tab after at least 2 hrs; max = 4 tabs/24 hr Referrals: Mary Ribeiro ARNP [Primary Care Provider] - Stand Alone Forms: Patient Portal/API/Survey
[2024-12-05 19:56] LABS: Ur Creatinine Normal (Normal); Ur Specific Gravity Normal (Normal); Urine Amphetamines Negative (Negative); Urine Barbiturates Negative (Negative); Urine Benzodiazepines Negative (Negative); Urine Cocaine Negative (Negative); Urine MDMA Negative (Negative); Urine Methadone Negative (Negative); Urine Methamphetamines Negative (Negative); Urine Opiates Negative (Negative); Urine Oxycodone Negative (Negative); Urine Phencyclidine Negative (Negative); Urine THC Negative (Negative); Urine Tricyclic Antidepressant Negative (Negative); Urine pH Normal (Normal)
[2024-12-05] MEDS: DEXAMETHASONE 10 MG/ML VIAL IV (20:24)
[2024-12-05] MEDS: METOCLOPRAMIDE 10 MG/2 ML INJ IV (20:24)
[2024-12-05 20:35] VITALS: BP 150/64; PULSE 67; RESP 16; TEMP 36.7; O2SAT 96
== END 2024-12-05 20:40 | disposition home or self-care (01) ==
PROVIDERS: Emergency Medicine; Emergency Provider Student in an Organized Health Care Education/Training Program; PCP Nurse Practitioner Gerontology
DX: G43.909 Migraine, unspecified, not intractable, without status migrainosus (principal); R47.81 Slurred speech; R41.0 Disorientation, unspecified; Z86.73 Personal history of transient ischemic attack (TIA), and cerebral infarction without residual deficits
CPT/HCPCS: 36415; 70450; 71045; 80053; 80305; 81003; 82140; 85025; 93005; 96374; 96375; 99284; J1100; J2765